=== PATIENT | male | born 1945 | race Caucasian/White ===

== ENCOUNTER 2016-05-03 09:44 | Outpatient (CLI) | payer MEDICARE | END 2016-05-03 09:45 | disposition home or self-care (01) | DX: I48.92 Unspecified atrial flutter (principal); I82.409 Acute embolism and thrombosis of unspecified deep veins of unspecified lower extremity ==

== ENCOUNTER 2016-05-06 09:40 | Outpatient (CLI) | payer MEDICARE | END 2016-05-06 09:41 | disposition home or self-care (01) | DX: I48.92 Unspecified atrial flutter (principal); I82.409 Acute embolism and thrombosis of unspecified deep veins of unspecified lower extremity ==

== ENCOUNTER 2016-05-25 09:30 | Outpatient (CLI) | payer MEDICARE | END 2016-05-25 09:31 | disposition home or self-care (01) | DX: I82.409 Acute embolism and thrombosis of unspecified deep veins of unspecified lower extremity (principal); I48.92 Unspecified atrial flutter ==

== ENCOUNTER 2016-06-08 09:34 | Outpatient (CLI) | payer MEDICARE | END 2016-06-08 09:35 | disposition home or self-care (01) | DX: I82.409 Acute embolism and thrombosis of unspecified deep veins of unspecified lower extremity (principal); I48.92 Unspecified atrial flutter ==

== ENCOUNTER 2016-06-21 | Outpatient (CLI) | payer MEDICARE | END 2016-06-21 09:43 | disposition short-term general hospital (02) | CPT/HCPCS: A0425; A0427 ==

== ENCOUNTER 2016-06-23 | Outpatient (CLI) | payer MEDICARE | END 2016-06-23 08:14 | disposition EMS.NT ==

== ENCOUNTER 2016-10-12 09:03 | Outpatient (CLI) | payer MEDICARE | END 2016-10-12 09:04 | disposition home or self-care (01) | LOC: LAB.F 09:03 | PROVIDERS: ATTEND Pharmacist | DX: I82.409 Acute embolism and thrombosis of unspecified deep veins of unspecified lower extremity (principal); I48.92 Unspecified atrial flutter | CPT/HCPCS: 85610 ==

== ENCOUNTER 2016-10-18 08:54 | Outpatient (CLI) | payer MEDICARE | END 2016-10-18 08:55 | disposition home or self-care (01) | LOC: EMS 08:54 | PROVIDERS: ATTEND Surgery | DX: R53.1 Weakness (principal) | CPT/HCPCS: A0425; A0429 ==

== ENCOUNTER 2016-10-18 09:31 | Emergency (ER) | payer MEDICARE ==
[2016-10-18] MEDS ORDERED: IPRATROPIUM/ALBUTEROL 3 ML NEB INH STA (09:43)
--- NOTE | 2016-10-18 09:48 | ED Physician Documentation ---
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 He fell onto his right knee, which bent under him, and he was unable to get up by himself. His called 911. He presents now complaining of pain in his right knee. He denies any other injuries, and he denies loss of consciousness, headache, or chest pain. He has chronic disability from his previous brain injury, and uses a walker when ambulating. He also has history of AR in November 2015, and underwent stent placement. Review of Systems Constitutional: denies: Fever Nose: denies: Congestion Throat: denies: Sore throat Cardiac: denies: Chest pain / pressure Respiratory: reports: Cough (Chronic cough.). denies: Dyspnea GI: denies: Abdominal Pain, Nausea, Vomiting : denies: Dysuria Skin: denies: Rash, Abrasion (s) Musculoskeletal: reports: Joint pain (right knee). denies: Neck pain, Back pain Neurologic: reports: Confused (chronically). denies: Headache, Head injury, LOC PD PAST MEDICAL HISTORY - Past Medical History Cardiovascular: Hypertension, High cholesterol Neuro: Head injury, Other - Past Surgical History Past Surgical History: Yes General: Appendectomy - Present Medications Home Medications: Ambulatory Orders Medication Instructions Recorded Confirmed Allopurinol 1 tab PO DAILY 10/18/16 10/18/16 Atorvastatin Calcium 1 tab PO DAILY 10/18/16 10/18/16 Budesonide/Formoterol Fumarate 2 puffs INH BID 10/18/16 10/18/16 [Symbicort 160-4.5 Mcg Inhaler] Metoprolol Succinate [Toprol Xl] 12.5 mg PO DAILY 10/18/16 10/18/16 Pantoprazole Sodium 20 mg PO BID 10/18/16 10/18/16 Risperidone [Risperdal] 3 tab PO DAILY 10/18/16 10/18/16 Sevelamer Carbonate [Renvela] 3 tab PO TID 10/18/16 10/18/16 Warfarin Sodium [Coumadin] 1 tab PO DAILY 10/18/16 10/18/16 hydrALAZINE [Apresoline] 1 tab PO TID 10/18/16 10/18/16 - Allergies Allergies/Adverse Reactions: Allergies Allergy/AdvReac Type Severity Reaction Status Date / Time No Known Drug Allergies Allergy Unverified 01/10/14 14:31 - Social History Does the pt smoke?: Yes Smoking Status: Current every day smoker Does the pt drink ETOH?: No Does the pt have substance abuse?: No - Immunizations Immunizations are current?: Yes - POLST Patient has POLST: Yes PD ED PE NORMAL - Vitals Vital signs reviewed: Yes (hypertensive) - General General: No acute distress, Other (Alert, but confused, at baseline.) - HEENT HEENT: Atraumatic, EOMI - Neck Neck: No bony TTP, No JVD - Cardiac Cardiac: RRR, No murmur - Respiratory Respiratory: Other (Diffuse rhonchi bilaterally, with faint expiratory wheezes.) - Abdomen Abdomen: Soft, Non tender - Back Back: No spinal TTP - Derm Derm: No rash - Extremities Extremities: No deformity, No calf tenderness / cord, Other (There is a 3 cm area of mild erythema on the anterior medial aspect of the right knee, with associated mild tenderness to palpation. It is not warm to palpation, and does not appear infected. There is no knee effusion detected, and he has full range of motion of the knee, as well as the hip. Distal neurovascular is intact. There is trace pedal edema bilaterally.) - Neuro Neuro: Other (Alert, oriented x2. Generalized weakness, at baseline.) Results - Vitals Vitals: Oxygen O2 Source Room air - Rads (name of study) CXR Radiology: Prelim report reviewed, EMP read contemporaneously, See rad report ( No acute findings on two-view chest radiography.) right knee Radiology: Prelim report reviewed, EMP read contemporaneously, See rad report ( Negative right knee radiography for acute findings. Age-related changes are present.) PD MEDICAL DECISION MAKING - ED course Complexity details: reviewed old records, reviewed results, re-evaluated patient , considered differential, d/w patient, d/w family ED course: The patient's presentation is consistent with contusion to the right knee caused by slipping when getting out of bed. There is no acute anatomic abnormality on x-ray examination. He demonstrates ability to bear weight at the bedside while in the emergency department. His fall was apparently a slip and fall, and not caused by central nervous system or cardiac etiology, although he does have chronic disequilibrium because of his previous brain injury. His exam revealed respiratory rhonchi on auscultation. Chest x-ray revealed no acute pulmonary infiltrate. Treatment in the emergency department included administration of DuoNeb nebulizer, which improved his air movement. It was determined that at least part of his respiratory rhonchi was upper airway transmitted sounds. I discussed with him and his the results of his imaging studies, expected course of symptoms, outpatient follow-up, as well as potentially worrisome signs or symptoms that should prompt reevaluation in the emergency department. Departure - Departure Disposition: 01 Home, Self Care Clinical Impression: Fall on same level from slipping, tripping or stumbling Qualifiers: Encounter type: initial encounter Qualified Code(s): W01.0XXA - Fall on same level from slipping, tripping and stumbling without subsequent striking against object, initial encounter Contusion of right knee Qualifiers: Encounter type: initial encounter Qualified Code(s): S80.01XA - Contusion of right knee, initial encounter Condition: Stable Instructions: ED Contusion Lower Ext Follow-Up: Lizzette Frey MD [Physician No Access] - Comments: Continue your medication as previously prescribed. Follow up with your primary physician within 2 weeks if the pain in the has not completely resolved. Return to the emergency department if increasing pain, or otherwise worsening symptoms. Discharge Date/Time: 10/18/16 11:46
[2016-10-18] MEDS ORDERED: IPRATROPIUM/ALBUTEROL 3 ML NEB INH ONE (10:20)
--- NOTE | 2016-10-18 10:29 | XRAY Preliminary Report ---
Exam: XR Chest 2 View PA/LAT IMPRESSION: No acute findings 2-view chest radiography. [facility] SITE ID: [id number]
--- NOTE | 2016-10-18 10:31 | XRAY Report ---
EXAM: CHEST RADIOGRAPHY EXAM DATE: 10/18/2016 09:44 AM. CLINICAL HISTORY: Cough with rhonchi. COMPARISON: None. TECHNIQUE: 2 views. FINDINGS: Lungs/Pleura: No focal opacities evident. No pleural effusion. No pneumothorax. Normal volumes. Mediastinum: Heart size top normal to borderline Other: Degenerative change in the spine with slight height loss of 2 midthoracic vertebral bodies IMPRESSION: No acute findings 2-view chest radiography. [facility] Referring Provider Line: [phone] SITE ID: [id number]
--- NOTE | 2016-10-18 10:31 | XRAY Preliminary Report ---
Exam: XR Knee 3 View RT IMPRESSION: Negative right knee radiography for acute findings. Age-related changes are present. [facility] SITE ID: [id number]
--- NOTE | 2016-10-18 10:33 | XRAY Report ---
EXAM: RIGHT KNEE RADIOGRAPHY EXAM DATE: 10/18/2016 09:44 AM. CLINICAL HISTORY: Fall, with pain right knee. COMPARISON: None. TECHNIQUE: 3 views. FINDINGS: Bones: No fractures or bone lesions. Joints: No effusion. No subluxations. Minimal degenerative spurring of the patellar articular surfac e. Possible slight narrowing medial knee joint. Soft Tissues: No soft tissue swelling. IMPRESSION: Negative right knee radiography for acute findings. Age-related changes are present. [facility] Referring Provider Line: [phone] SITE ID: [id number]
[2016-10-18] MEDS ORDERED: ASPIRIN CHEW 81 MG TABLET PO STA (10:57)
[2016-10-18] MEDS ORDERED: ASPIRIN CHEW 81 MG TABLET ONE (11:01)
[2016-10-18 11:46] VITALS: BP 198/83
== END 2016-10-18 11:46 | disposition home or self-care (01) ==
LOC: EDUNIT# → ED 09:31
DX: S80.01XA Contusion of right knee, initial encounter (principal); W06.XXXA Fall from bed, initial encounter; Y92.013 Bedroom of single-family (private) house as the place of occurrence of the external cause; I10 Essential (primary) hypertension; I25.2 Old myocardial infarction; E78.00 Pure hypercholesterolemia, unspecified; Z79.01 Long term (current) use of anticoagulants; Z87.820 Personal history of traumatic brain injury; F17.200 Nicotine dependence, unspecified, uncomplicated
CPT/HCPCS: 71020; 73562; 94640; 99283; 99284; A9270; J7620

== ENCOUNTER 2016-11-16 09:02 | Outpatient (CLI) | payer MEDICARE | END 2016-11-16 09:03 | disposition home or self-care (01) | LOC: LAB.F 09:02 | PROVIDERS: ATTEND Pharmacist | DX: I82.409 Acute embolism and thrombosis of unspecified deep veins of unspecified lower extremity (principal); I48.92 Unspecified atrial flutter | CPT/HCPCS: 85610 ==

== ENCOUNTER 2016-12-21 09:05 | Outpatient (CLI) | payer MEDICARE | END 2016-12-21 09:06 | disposition home or self-care (01) | LOC: LAB.F 09:05 | PROVIDERS: ATTEND Pharmacist | DX: I82.409 Acute embolism and thrombosis of unspecified deep veins of unspecified lower extremity (principal); I48.92 Unspecified atrial flutter | CPT/HCPCS: 85610 ==

== ENCOUNTER 2017-01-02 11:53 | Outpatient (CLI) | payer MEDICARE | END 2017-01-02 11:54 | disposition critical access hospital (66) | LOC: EMS 11:53 | PROVIDERS: ATTEND Surgery | DX: R53.83 Other fatigue (principal); R51 Headache | CPT/HCPCS: A0425; A0427 ==

== ENCOUNTER 2017-01-02 12:24 | Inpatient (IN) | payer MEDICARE ==
[2017-01-02 13:08] LABS: BASOPHILS % (AUTO) 0.3 %; EOSINOPHILS # (AUTO) 0.2 10^3/uL (0.0-0.7); EOSINOPHILS % (AUTO) 2.9 %; HCT - HEMATOCRIT 33.7 % (42.0-52.0); HGB - HEMOGLOBIN 11.4 g/dL (14.0-18.0); LYMPHOCYTES # (AUTO) 0.8 10^3/uL (1.5-3.5); LYMPHOCYTES % (AUTO) 11.8 %; MEAN CORPUSCULAR HGB CONC 33.9 g/dL (32.0-36.0); MEAN CORPUSCULAR VOLUME 91.4 fL (80.0-94.0); MEAN PLATELET VOLUME 7.8 fL (7.4-11.4); MONOCYTES # (AUTO) 0.9 10^3/uL (0.0-1.0); MONOCYTES % (AUTO) 12.4 %; NEUTROPHILS # (AUTO) 5.1 10^3/uL (1.5-6.6); NEUTROPHILS % (AUTO) 72.6 %; RED BLOOD COUNT 3.68 10^6/uL (4.70-6.10); RED CELL DISTRIBUTION WIDTH 13.9 % (12.0-15.0)
[2017-01-02 13:16] LABS: INR 2.2 (0.8-1.2); PT - PROTHROMBIN TIME 24.8 secs (9.9-12.6)
[2017-01-02 13:20] LABS: ALBUMIN/GLOBULIN RATIO 1.1 (1.0-2.2); BILIRUBIN,TOTAL 1.2 mg/dL (0.2-1.0); CALCIUM 9.8 mg/dL (8.5-10.3); CREATININE 1.8 mg/dL (0.6-1.2); POTASSIUM 4.5 mmol/L (3.5-5.0); TOTAL PROTEIN 6.4 g/dL (6.7-8.2)
[2017-01-02] MEDS ORDERED: SODIUM CHLORIDE 0.9% 1,000 ML IV ONE (13:30)
--- NOTE | 2017-01-02 13:41 | CT Preliminary Report ---
Exam: CT Head W/O IMPRESSION: 1. No intracranial bleed or mass effect. 2. Old bilateral infarctions with adjacent low density, likely gliosis. [facility] SITE ID: [id number]
--- NOTE | 2017-01-02 13:42 | XRAY Preliminary Report ---
Exam: XR Chest 1 View IMPRESSION: 1. Pulmonary cephalization with faint interstitial prominence in the perihilar regions, possibly mini mal interstitial edema. 2. Cardiomegaly. [facility] SITE ID: [id number]
--- NOTE | 2017-01-02 13:44 | CT Report ---
EXAM: CT HEAD EXAM DATE: 01/02/2017 01:19 PM. CLINICAL HISTORY: Altered mental status COMPARISON: Head CT 01/10/2014. TECHNIQUE: Multiaxial CT images were obtained from the foramen magnum to the vertex. IV contrast: Non e. Reformats: Coronal. In accordance with CT protocol optimization, one or more of the following dose reduction techniques w ere utilized for this exam: automated exposure control, adjustment of mA and/or KV based on patient s ize, or use of iterative reconstructive technique. FINDINGS: Parenchyma: Right parietal and left parieto-occipital encephalomalacia with adjacent low density in t he deep white matter, likely gliosis. No intracranial bleed or mass effect. Left internal capsule old lacunar infarction. Extraaxial Spaces: Normal for age. No subdural or epidural collections identified. Ventricles: Normal in size and position. Sinuses: Mucosal thickening ethmoid sinuses. Bones: No evidence of fracture or calvarial defect. Other: None. IMPRESSION: 1. No intracranial bleed or mass effect. 2. Old bilateral infarctions with adjacent low density, likely gliosis. [facility] Referring Provider Line: [phone] SITE ID: [id number]
--- NOTE | 2017-01-02 13:45 | XRAY Report ---
EXAM: CHEST RADIOGRAPHY EXAM DATE: 01/02/2017 01:21 PM. CLINICAL HISTORY: Cough, altered mental status. COMPARISON: Chest x-ray 10/18/2016. TECHNIQUE: 1 view. FINDINGS: Lungs/Pleura: No pleural effusion or pneumothorax. Pulmonary cephalization with minimal interstitial prominence in the hilar regions. Mediastinum: Cardiomegaly with atherosclerotic calcification. Other: None. IMPRESSION: 1. Pulmonary cephalization with faint interstitial prominence in the perihilar regions, possibly mini mal interstitial edema. 2. Cardiomegaly. [facility] Referring Provider Line: [phone] SITE ID: [id number]
--- NOTE | 2017-01-02 14:19 | ED Physician Documentation ---
History of Present Illness - Stated complaint Stated Complaint: LETHARGIC - Chief complaint Chief Complaint: General - Additonal information Additional information: Patient is 71-year-old man with a history of hemorrhagic stroke approximately 40 years ago. He does have ongoing developmental delay and cognitive problems related to the previous stroke. He also has a history of COPD hypertension and had a myocardial infarction in December 2015. He also had acute it kidney injury at that time. He is brought in for evaluation by his sister who lives with him. She says that today he appeared lethargic and was poorly responsive. The patient complained of feeling bad. Usually the patient has almost no complaints about anything so she is concerned about the brief alteration in mental status and his complaint of not feeling well. She has not noticed any increased cough, nausea, vomiting, constipation or diarrhea. She did give him an aspirin at home today. Review of systems: For pertinent positive and negatives in the review of systems please see the history of present illness, otherwise all other systems have been reviewed and are negative. Dragon disclaimer: Parts of this medical record were created using voice recognition technology. Because of the inherent limitations of this system, occasional same sounding word substitutions do occur and persist despite proofreading. Please read the document for context. Review of Systems Unable to obtain: Confused Ten Systems: 10 systems reviewed and negative Constitutional: reports: Myalgias. denies: Fever, Chills Eyes: denies: Loss of vision Ears: denies: Loss of hearing Nose: denies: Rhinorrhea / runny nose, Foreign Body Throat: denies: Dental pain / toothache, Oral lesions / sores, Sore throat Cardiac: denies: Chest pain / pressure, Palpitations Respiratory: denies: Dyspnea, Cough GI: denies: Nausea, Vomiting : denies: Dysuria, Frequency, Hesitancy PD PAST MEDICAL HISTORY - Past Medical History Past Medical History: Yes Cardiovascular: Hypertension, High cholesterol Respiratory: COPD Neuro: Head injury, Other - Past Surgical History Past Surgical History: Yes General: Appendectomy - Present Medications Home Medications: Ambulatory Orders Medication Instructions Recorded Confirmed Allopurinol 1 tab PO DAILY 10/18/16 01/02/17 Atorvastatin Calcium 1 tab PO DAILY 10/18/16 01/02/17 Budesonide/Formoterol Fumarate 2 puffs INH BID 10/18/16 01/02/17 [Symbicort 160-4.5 Mcg Inhaler] Metoprolol Succinate [Toprol Xl] 12.5 mg PO DAILY 10/18/16 01/02/17 Pantoprazole Sodium 20 mg PO BID 10/18/16 01/02/17 Risperidone [Risperdal] 3 tab PO DAILY 10/18/16 01/02/17 Sevelamer Carbonate [Renvela] 3 tab PO TID 10/18/16 01/02/17 Warfarin Sodium [Coumadin] 1 tab PO DAILY 10/18/16 01/02/17 hydrALAZINE [Apresoline] 1 tab PO TID 10/18/16 01/02/17 - Allergies Allergies/Adverse Reactions: Allergies Allergy/AdvReac Type Severity Reaction Status Date / Time No Known Drug Allergies Allergy Unverified 01/10/14 14:31 - Social History Does the pt smoke?: Yes Smoking Status: Current every day smoker Does the pt drink ETOH?: No Does the pt have substance abuse?: No - Immunizations Immunizations are current?: Yes - POLST Patient has POLST: Yes PD ED PE NORMAL - Vitals Vital signs reviewed: Yes - General General: Alert and oriented X 3, No acute distress, Well developed/nourished, Other (Patient has a wet sounding cough on initial presentation. The patient is awake and alert although he obviously has some cognitive problems does not respond normally to questioning and is very short in his answers presumably secondary to his previous hemorrhagic stroke. His neurologic exam appears to be nonfocal) - HEENT HEENT: Atraumatic, PERRL - Neck Neck: Supple, no meningeal sign, No JVD, No bruit - Cardiac Cardiac: No murmur, Other (Bradycardic rate no lift heave or murmur) - Respiratory Respiratory: No respiratory distress (Coarse sounding cough, no increased work of breathing, no respiratory distress), Other - Abdomen Abdomen: Normal bowel sounds, Soft, Non tender, Non distended - Derm Derm: Normal color, Warm and dry - Extremities Extremities: No deformity, No tenderness to palpate, Normal ROM s pain, No edema - Neuro Neuro: No motor deficit Results - Vitals Vitals: Vital Signs - 24 hr 01/02/17 01/02/17 01/02/17 12:26 13:59 14:03 Temperature 36.6 C 37.0 C Heart Rate 46 L 88 52 L Respiratory 13 16 Rate Blood Pressure 208/65 H 102/57 L 137/78 H O2 Saturation 97 98 01/02/17 01/02/17 14:35 15:09 Temperature Heart Rate 59 L 51 L Respiratory 20 22 Rate Blood Pressure 217/62 H 195/70 H O2 Saturation 96 96 Oxygen O2 Source Room air - Labs Labs: Laboratory Tests 01/02/17 01/02/17 01/02/17 13:00 13:00 13:00 WBC 7.0 RBC 3.68 L Hgb 11.4 L Hct 33.7 L MCV 91.4 MCH 31.0 MCHC 33.9 RDW 13.9 Plt Count 119 L MPV 7.8 Neut # 5.1 Lymph # 0.8 L [place] # 0.9 Eos # 0.2 Baso # 0.0 Absolute Nucleated RBC 0.00 Nucleated RBCs 0.0 PT 24.8 H INR 2.2 H Sodium 131 L Potassium 4.5 Chloride 96 L Carbon Dioxide 29 Anion Gap 6.0 BUN 37 H Creatinine 1.8 H Estimated GFR (MDRD) 37 L Glucose 105 H Calcium 9.8 Total Bilirubin 1.2 H AST 18 ALT 17 Alkaline Phosphatase 62 Troponin I B-Natriuretic Peptide Total Protein 6.4 L Albumin 3.4 Globulin 3.0 Albumin/Globulin Ratio 1.1 Lipase 30 Urine Color Urine Clarity Urine pH Ur Specific [place] Urine Protein Urine Glucose (UA) Urine Ketones Urine Occult Blood Urine Nitrite Urine Bilirubin Urine Urobilinogen Ur Leukocyte Esterase Urine RBC Urine WBC Ur Squamous Epith Cells Urine Crystals Amorphous Sediment Urine Bacteria Ur Microscopic Review Urine Culture Comments 01/02/17 01/02/17 01/02/17 13:00 13:00 14:10 WBC RBC Hgb Hct MCV MCH MCHC RDW Plt Count MPV Neut # Lymph # [place] # Eos # Baso # Absolute Nucleated RBC Nucleated RBCs PT INR Sodium Potassium Chloride Carbon Dioxide Anion Gap BUN Creatinine Estimated GFR (MDRD) Glucose Calcium Total Bilirubin AST ALT Alkaline Phosphatase Troponin I 0.04 B-Natriuretic Peptide 331 H Total Protein Albumin Globulin Albumin/Globulin Ratio Lipase Urine Color YELLOW Urine Clarity CLEAR Urine pH 7.0 Ur Specific [place] 1.010 Urine Protein 100 H Urine Glucose (UA) NEGATIVE Urine Ketones NEGATIVE Urine Occult Blood TRACE-INTA Urine Nitrite NEGATIVE Urine Bilirubin NEGATIVE Urine Urobilinogen 0.2 (NORMAL) Ur Leukocyte Esterase NEGATIVE Urine RBC 0-5 Urine WBC 0-3 Ur Squamous Epith Cells RARE Squamous Urine Crystals 3-5 Uric Acid Amorphous Sediment Rare Urine Bacteria None Seen Ur Microscopic Review INDICATED Urine Culture Comments NOT INDICATED PD MEDICAL DECISION MAKING - ED course ED course: Patient is a 71-year-old man with a history of hemorrhagic stroke 40 years ago. He also has a history of coronary disease and had a myocardial infarction in December 2015 at which time he also had acute kidney injury and was diagnosed with deep venous thrombosis after his hospitalization. He is brought in for evaluation of lethargy and found to be moderately bradycardic here in the 40s. He is on a beta-piyush but only takes 12.5 mg of metoprolol a day. He is also on hydralazine for blood pressure control. He is anticoagulated for the previous DVT and his INR is therapeutic. CT scan of the head is unremarkable chest x-ray demonstrates mild pulmonary vascular congestion consistent with CHF EKG demonstrates sinus bradycardia 49 bpm the [place] intervals prolonged and first- degree AV block the QRS and QT intervals are normal. There is peaked T waves on EKG examination. The computer read as mild ST elevation however the morphology is benign and he has no cardiac symptomatology at present. Blood work on this patient shows kidney disease which we believe is chronic and is unknown phenomenon since his insult in 2015. BNP slightly elevated urine is negative for infection. The patient's mental status is now back at baseline. The little concerned about his bradycardia and his mild congestive heart failure. He is mildly hypertensive here and I think he probably needs to be taken off the metoprolol and needs better blood pressure control given the fact that he is mildly fluid overloaded here and has a coarse pulmonary exam. Disposition: Admission Clinical impression: 1. Lethargy-resolved 2. Sinus bradycardia-possibly related to Toprol use 3. Acute decompensated heart failure 4. Hypertension-elevated Departure - Departure Disposition: [facility] DC/Xfer
[2017-01-02 14:32] LABS: BILIRUBIN,URINE NEGATIVE (NEGATIVE)
[2017-01-02 14:36] LABS: UA w/ MICROSCOPIC CHARGE YES
[2017-01-02 14:46] LABS: WBC,URINE 0-3 /HPF (0-3)
[2017-01-02 14:47] LABS: UR CULTURE IF IND NOT INDICATED
[2017-01-02] MEDS ORDERED: NITROGLYCERIN 2% PASTE TOP STA (15:28)
[2017-01-02] MEDS ORDERED: FUROSEMIDE 20 MG/2 ML VIAL IVP STA (15:28)
[2017-01-02] MEDS ORDERED: ONDANSETRON ODT 4 MG TABLET TL PRN (16:02)
[2017-01-02] MEDS ORDERED: TEMAZEPAM 15 MG CAPSULE PO PRN (16:02)
[2017-01-02] MEDS ORDERED: ACETAMINOPHEN 325 MG TABLET PO PRN (16:02)
[2017-01-02] MEDS ORDERED: SODIUM CHLORIDE FLUSH 0.9% 10 ML SYRINGE IVP PRN (16:02)
[2017-01-02] MEDS ORDERED: NITROGLYCERIN 2% PASTE TOP ONE (16:03)
[2017-01-02] MEDS ORDERED: FUROSEMIDE 20 MG/2 ML VIAL IVP ONE (16:03)
[2017-01-02] MEDS ORDERED: IPRATROPIUM/ALBUTEROL 3 ML NEB INH PRN (16:12)
--- NOTE | 2017-01-02 16:27 | HISTORY & PHYSICAL EXAMINATION ---
Chief Complaint - Chief Complaint Chief Complaint: Altered mental status History of Present Illness - Admitted From Admitted From:: Emergency department - History Obtained From Records Reviewed: Yes History obtained from: Record review as PT is not a reliable historian due to prior CVA - History of Present Illness HPI Comment/Other: Pt is a poor historian due to impaired cognition from prior CVA. INformation obtained from records review. PT has a hX of CAD with prior [place]. He was Dx with a CVA and has persistent cognitive impairment. 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 His INR today was 2.2. HE has known CKD and creatinine today was 1.8. PT with possible HX of CHF Today his BNP had mild elevation >300. PT was brought in by his sister for evaluation. He was at home and was less responsive then his usual baseline. He also appeared more lethargic. She was concerned that he was he was complaining of not feeling well. He does not normally complain. There were no specific complaints reported. He did not have nausea, vomiting, diarrhea, constipation, or cough. PT was able to tell me he had a headache. He denies dyspnea. In the ED head CT scan was negative for acute changes. CXR with mild interstitial changes suggesting edema. No pneumonia was visualized. Lab testing without significant findings. PT was noted to be bradycardic on telmetry with HR 40-60. HE did not have complaints of dizziness, lightheadedness or weakness on evaluation. Review of Systems - Constitutional Constitutional: reports: Other (Unable to obtain accurate complete ROS as PT is confused with declined cognitive abilities at baseline.). denies: Fatigue, Fever - Eyes Eyes: denies: Pain - Cardiovascular Cariovascular: denies: Chest pain - Respiratory Respiratory: denies: SOB at rest, SOB with exertion - Gastrointestinal Gastrointestinal: denies: Abdominal pain, Nausea, Vomiting - Musculoskeletal Musculoskeletal: denies: Muscle pain - Neurological Neurological: reports: Headache. denies: General weakness History - Past Medical History Cardiovascular: reports: Hypertension, High cholesterol, Coronary artery disease Respiratory: reports: COPD Neuro: reports: CVA (Hemorrhagic), Head injury, Other Psych: reports: Other (cognitive impairment following CVA) MRSA Hx?: No - Past Surgical History General: reports: Appendectomy - Family & Social History Family History: Mother: [place] Living arrangement: At home Living Situation: With family (Sister acts as caregiver) - POLST Patient has POLST: Yes POLST Status: Unable to obtain Meds/Allgy - Home Medications Home Medications: Ambulatory Orders Medication Instructions Recorded Confirmed Allopurinol 100 mg PO DAILY 10/18/16 01/02/17 Atorvastatin Calcium 20 mg PO DAILY 10/18/16 01/02/17 Budesonide/Formoterol Fumarate 2 puffs INH BID 10/18/16 01/02/17 [Symbicort 160-4.5 Mcg Inhaler] Metoprolol Succinate [Toprol Xl] 12.5 mg PO DAILY 10/18/16 01/02/17 Pantoprazole Sodium 20 mg PO BID 10/18/16 01/02/17 Risperidone [Risperdal] 1.5 mg PO DAILY 10/18/16 01/02/17 Sevelamer Carbonate [Renvela] 2,400 mg PO TID 10/18/16 01/02/17 Warfarin Sodium [Coumadin] 6 mg PO DAILY 10/18/16 01/02/17 hydrALAZINE [Apresoline] 25 mg PO TID 10/18/16 01/02/17 - Allergies Allergies/Adverse Reactions: Allergies Allergy/AdvReac Type Severity Reaction Status Date / Time No Known Drug Allergies Allergy Unverified 01/10/14 14:31 Exam - Vital Signs Reviewed Vital Signs: Yes Vital Signs: Vital Signs x48h Temp Pulse Resp BP Pulse Ox 01/02/17 15:57 65 202/75 H 01/02/17 15:09 51 L 22 195/70 H 96 01/02/17 14:35 59 L 20 217/62 H 96 01/02/17 14:03 52 L 137/78 H 01/02/17 13:59 37.0 C 88 16 102/57 L 98 01/02/17 12:26 36.6 C 46 L 13 208/65 H 97 - Physical Exam General Appearance: positive: No acute distress, Alert Eyes Bilateral: positive: Normal inspection, PERRL, EOMI ENT: positive: ENT inspection nml, Pharynx nml. negative: Pharyngeal erythema Neck: positive: Nml inspection, No JVD. negative: Stiff neck Respiratory: positive: Chest non-tender, No respiratory distress, Rales. negative: Wheezes, Rhonchi Cardiovascular: positive: Regular rate & rhythm, No murmur, No gallop Peripheral Pulses: positive: 2+ Abdomen: positive: Non-tender, No organomegaly, Nml bowel sounds Rectal: positive: Other (deferred) Back: positive: Nml inspection Skin: positive: Color nml, No rash, Warm, Dry Extremities: positive: Non-tender, Full ROM, Pedal edema (1+ BLE edema to vidal) . negative: Calf tenderness, Joint swelling Neurologic/Psychiatric: positive: Disoriented to person, Disoriented to place, Disoriented to time. negative: Facial droop, Slurred/abnml speech Conclusion/Plan - Problem List (1) CHF (congestive heart failure) Conclusion/Plan: PT with elevated BNP HX OF [place]. No echo on file Denies PND and orthopnea. Mild BLE edema Plan ECHO in am Lasix daily Will monitor oxygenations Qualifiers: Congestive heart failure type: unspecified congestive heart failure type Congestive heart failure chronicity: acute on chronic Qualified Code(s): I50.9 - Heart failure, unspecified (2) CAD (coronary artery disease) Conclusion/Plan: HX CAD and [place] Denies chest pain On low dose BB No ASA due to warfarin Suspect no ABDON due to CKD Plan Will monitor for changes No indication for ischemic workup Qualifiers: Coronary Disease-Associated Artery/Lesion type: [place] artery [place] vs. transplanted heart: beaver heart Associated angina: without angina Qualified Code(s): I25.10 - Atherosclerotic heart disease of [place] coronary artery without angina pectoris (3) CVA (cerebral vascular accident) Conclusion/Plan: PT with cognitive impairment from CVA Report of altered level of consciousness/decreased responsiveness. No acute changes on CT Now resolved Unclear if new SX are related to CVA/TIA Plan Will monitor for additional changes Consider MRI if recurrent sx Qualifiers: CVA mechanism: other Qualified Code(s): I63.8 - Other cerebral infarction (4) CKD (chronic kidney disease) Conclusion/Plan: Creatinine 1.8 today Plan Will monitor (5) Altered awareness, transient Conclusion/Plan: Reported to ED MD byu sister Now resolved Pt with cognitive impairment at baseline Unclear etiology. May be related to bradycardia however does not appear symptomatic in ED wth HR 40-60 Plan Will monitor on telemetry for lower HRs Consider MRI tomorrow (6) Cognitive impairment Conclusion/Plan: Chronic from CVA Unchanged (7) Hyponatremia Conclusion/Plan: Reported as chronic NA 133 Will monitor daily labs (8) Anemia Conclusion/Plan: .7 No recent labs in records Will recheck in AM Guiaic stool test Qualifiers: Anemia type: unspecified type Qualified Code(s): D64.9 - Anemia, unspecified - Lab Results Fish Bones: 01/02/17 13:00 01/02/17 13:00 Issues/Core Measures - Anticipated LOS Anticipated Stay Length: 2 or more midnights - DVT/VTE - Prophylaxis VTE/DVT Device ordered at admit?: No VTE/DVT Prophylaxis med ordered at admit?: No Not Ordered - Medical Reason: Contraindicated (PT is therapeutic on warfarin) - AMI - Statin at Admit Aspirin Prescribed on Admit: No Not Ordered - Medical Reason: Contraindicated
[2017-01-02] MEDS ORDERED: hydrALAZINE 25 MG TABLET PO SCH ×2 (18:30→22:00)
[2017-01-02] MEDS: SODIUM CHLORIDE FLUSH 0.9% 10 ML SYRINGE IVP SCH (18:32)
[2017-01-02] MEDS: FORMOTEROL FUMARATE NEB 20 MCG/2 ML INH SCH (19:53)
[2017-01-02] MEDS: BUDESONIDE 0.5 MG/2 ML NEB INH SCH (19:53)
[2017-01-02] MEDS: risperiDONE 1 MG TABLET PO SCH (21:21)
[2017-01-02] MEDS: ATORVASTATIN 10 MG TABLET PO SCH (21:22)
[2017-01-02] MEDS: hydrALAZINE 25 MG TABLET PO SCH (21:24)
[2017-01-02] MEDS ORDERED: SEVELAMER 800 MG TABLET PO SCH (22:00)
[2017-01-03 05:45] LABS: HCT - HEMATOCRIT 33.6 % (42.0-52.0); HGB - HEMOGLOBIN 11.4 g/dL (14.0-18.0); MEAN CORPUSCULAR HEMOGLOBIN 31.3 pg (27.0-31.0); MEAN CORPUSCULAR HGB CONC 33.9 g/dL (32.0-36.0); MEAN CORPUSCULAR VOLUME 92.2 fL (80.0-94.0); MEAN PLATELET VOLUME 8.2 fL (7.4-11.4); RED BLOOD COUNT 3.65 10^6/uL (4.70-6.10); WHITE BLOOD COUNT 7.3 x10^3/uL (4.8-10.8)
[2017-01-03] MEDS: hydrALAZINE 25 MG TABLET PO SCH ×3 (06:13→21:14)
[2017-01-03] MEDS: PANTOPRAZOLE 40 MG TABLET PO SCH (06:13)
[2017-01-03] MEDS: SODIUM CHLORIDE FLUSH 0.9% 10 ML SYRINGE IVP SCH ×3 (06:13→20:12)
[2017-01-03] MEDS: BUDESONIDE 0.5 MG/2 ML NEB INH SCH ×2 (07:40→20:38)
[2017-01-03] MEDS: FORMOTEROL FUMARATE NEB 20 MCG/2 ML INH SCH ×2 (07:40→20:30)
[2017-01-03] MEDS: ALLOPURINOL 100 MG TABLET PO SCH (08:21)
[2017-01-03] MEDS: POLYETHYLENE GLYCOL 3350 17 GM PACKET PO SCH (08:21)
[2017-01-03] MEDS: SEVELAMER 800 MG TABLET PO SCH ×3 (08:21→17:57)
[2017-01-03] MEDS ORDERED: FUROSEMIDE 20 MG/2 ML VIAL IVP SCH (09:00)
[2017-01-03 12:31] LABS: ALBUMIN/GLOBULIN RATIO 1.2 (1.0-2.2); BILIRUBIN,TOTAL 1.7 mg/dL (0.2-1.0); CALCIUM 9.5 mg/dL (8.5-10.3); POTASSIUM 4.2 mmol/L (3.5-5.0); TOTAL PROTEIN 5.8 g/dL (6.7-8.2)
[2017-01-03] MEDS ORDERED: WARFARIN 1 MG TABLET PO SCH (14:00)
[2017-01-03] MEDS ORDERED: WARFARIN 5 MG TABLET PO SCH (14:00)
--- NOTE | 2017-01-03 15:28 | PROVIDER PROGRESS NOTE ---
Subjective - Prog Note Date Prog Note Date: 01/03/17 - Subjective Pt reports feeling: Improved Subjective: pt state he feels much better, report he is weak to walk Current Medications - Current Medications Current Medications: Active Medications Acetaminophen (Tylenol) 650 mg PO Q4HR PRN PRN Reason: Pain 1 to 4 Albuterol/Ipratropium (Duoneb) 3 ml INH Q4HR PRN PRN Reason: Wheezing Last Admin: 01/02/17 19:53 Dose: 3 ml Allopurinol (Zyloprim) 100 mg PO DAILY [facility] Last Admin: 01/03/17 08:21 Dose: 100 mg Atorvastatin Calcium (Lipitor) 20 mg PO QPM [facility] Last Admin: 01/02/17 21:22 Dose: 20 mg Budesonide (Pulmicort) 0.5 mg INH RTBID [facility] Last Admin: 01/03/17 07:40 Dose: 0.5 mg Formoterol Fumarate (Perforomist) 20 mcg INH RTBID [facility] Last Admin: 01/03/17 07:40 Dose: 20 mcg Furosemide (Lasix Inj 20mg Vial) 20 mg IVP DAILY [facility] Last Admin: 01/03/17 08:21 Dose: 20 mg Hydralazine HCl (Apresoline) 50 mg PO TID [facility] Last Admin: 01/03/17 13:40 Dose: 50 mg Ondansetron HCl (Zofran Odt) 4 mg TL Q6HR PRN PRN Reason: Nausea / Vomiting Pantoprazole Sodium (Protonix) 40 mg PO QDAC [facility] Last Admin: 01/03/17 06:13 Dose: 40 mg Polyethylene Glycol (Miralax) 17 gm PO DAILY [facility] Last Admin: 01/03/17 08:21 Dose: 17 gm Risperidone (Risperdal) 1.5 mg PO QPM [facility] Last Admin: 01/02/17 21:21 Dose: 1.5 mg Sevelamer HCl (Renagel) 2,400 mg PO TIDWM [facility] Last Admin: 01/03/17 13:39 Dose: 2,400 mg Sodium Chloride (Normal Saline Flush 0.9%) 10 ml IVP PRN PRN PRN Reason: NEEDED PER PROVIDER ORDERS Last Admin: 01/03/17 08:21 Dose: 10 ml Sodium Chloride (Normal Saline Flush 0.9%) 10 ml IVP Q8HR [facility] Last Admin: 01/03/17 13:40 Dose: 10 ml Temazepam (Restoril) 15 mg PO QPM PRN PRN Reason: Insomnia [facility]farin [facility]) [facility] Last Admin: 01/03/17 13:40 Dose: 5 mg Warfarin Sodium (Coumadin) [facility] Last Admin: 01/03/17 13:40 Dose: 1 mg Allopurinol 100 mg PO DAILY 10/18/16 Atorvastatin Calcium 20 mg PO DAILY 10/18/16 Budesonide/Formoterol Fumarate [Symbicort 160-4.5 Mcg Inhaler] 2 puffs INH BID 10/18/16 Metoprolol Succinate [Toprol Xl] 12.5 mg PO DAILY 10/18/16 Pantoprazole Sodium 20 mg PO BID 10/18/16 Risperidone [Risperdal] 1.5 mg PO DAILY 10/18/16 Sevelamer Carbonate [Renvela] 2,400 mg PO TID 10/18/16 Warfarin Sodium [Coumadin] 6 mg PO DAILY 10/18/16 hydrALAZINE [Apresoline] 25 mg PO TID 10/18/16 Objective - Vital Signs/Intake & Output Vital Signs: Vital Signs x48h Temp Pulse Pulse Resp BP Pulse Ox 01/03/17 13:37 36.7 C 64 16 158/87 H 100 01/03/17 08:03 36.8 C 54 L 18 156/48 H 98 01/03/17 07:46 60 18 Intake & Output: Intake & Output 12/31/16 01/01/17 01/02/17 01/03/17 23:59 23:59 23:59 23:59 Intake Total 536 680 Output Total 100 800 Balance 436 -120 - Objective General Appearance: positive: No acute distress, Alert. negative: Lethargic Eyes Bilateral: positive: Normal inspection, PERRL. negative: No lid inflammation, Conjunctivae nml ENT: positive: ENT inspection nml, Pharynx nml, No signs of dehydration. negative: Purulent nasal drainage, Pharyngeal erythema Neck: positive: Nml inspection, Thyroid nml, Trachea midline. negative: Thyromegaly, Lymphadenopathy (R), Lymphadenopathy (L), Stiff neck, Swelling/ bruising, Tracheal deviation Respiratory: positive: Chest non-tender, No respiratory distress, Breath sounds nml. negative: Wheezes, Rales, Rhonchi Cardiovascular: positive: Regular rate & rhythm, No gallop, Bradycardia, Systolic murmur. negative: Tachycardia Peripheral Pulses: 2+ Radial (R), 2+ Radial (L), 2+ Dorsalis pedis (R), 2+ Dorsalis pedis (L) Abdomen: positive: Non-tender, Nml bowel sounds, No distention. negative: Tenderness, Guarding, Rebound Back: positive: Nml inspection. negative: CVA tenderness (R), CVA tenderness (L ) Skin: positive: Color nml, No rash, Warm, Dry. negative: Cyanosis, Diaphoresis , Pallor Extremities: positive: Non-tender, Full ROM, Nml appearance. negative: Calf tenderness, Manny's sign/cords Neurologic/Psychiatric: positive: Sensation nml, Mood/affect nml, Disoriented to time, Weakness. negative: Disoriented to person, Disoriented to place, Sensory loss, Facial droop, Slurred/abnml speech, Depressed mood/affect - Lab Results Fish Bones: 01/03/17 05:24 01/03/17 05:24 Other Labs: Lab Results x24hrs 01/03/17 01/03/17 01/03/17 Range/Units 05:24 05:24 05:24 WBC 7.3 (4.8-10.8) x10^3/uL RBC 3.65 L (4.70-6.10) 10^6/uL Hgb 11.4 L (14.0-18.0) g/dL Hct 33.6 L (42.0-52.0) % MCV 92.2 (80.0-94.0) fL MCH 31.3 H (27.0-31.0) pg MCHC 33.9 (32.0-36.0) g/dL RDW 14.0 (12.0-15.0) % Plt Count 118 L (130-450) 10^3/uL MPV 8.2 (7.4-11.4) fL Sodium 136 (135-145) mmol/L Potassium 4.2 (3.5-5.0) mmol/L Chloride 101 (101-111) mmol/L Carbon Dioxide 28 (21-32) mmol/L Anion Gap 7.0 (6-13) BUN 39 H (6-20) mg/dL Creatinine 2.0 H (0.6-1.2) mg/dL Estimated GFR (MDRD) 33 L (>89) Glucose 98 (70-100) mg/dL Calcium 9.5 (8.5-10.3) mg/dL Total Bilirubin 1.7 H (0.2-1.0) mg/dL AST 19 (10-42) IU/L ALT 15 (10-60) IU/L Alkaline Phosphatase 55 (42-121) IU/L B-Natriuretic Peptide 308 H (5-100) pg/mL Total Protein 5.8 L (6.7-8.2) g/dL Albumin 3.2 (3.2-5.5) g/dL Globulin 2.6 (2.1-4.2) g/dL Albumin/Globulin Ratio 1.2 (1.0-2.2) Assessment/Plan - Problem List (1) Altered awareness, transient Impression: (1) weakness nurse and pt report he feel weakness, PT evaluate and treat (2) CHF (congestive heart failure) Conclusion/Plan: ECHO reviewed, normal LVF function. Pt denies SOB continue Lasix, continue to monitor BNP, today BNP down to 308 PT with elevated BNP HX OF [place]. No echo on file Denies PND and orthopnea. Mild BLE edema Plan ECHO in am Lasix daily Will monitor oxygenations Qualifiers: Congestive heart failure type: unspecified congestive heart failure type Congestive heart failure chronicity: acute on chronic Qualified Code(s): I50.9 - Heart failure, unspecified (3) history of CAD (coronary artery disease) Conclusion/Plan: continue monitor with tele, vital hold ABDON now, due to CKD HX CAD and [place] Denies chest pain On low dose BB No ASA due to warfarin Suspect no ABDON due to CKD Plan Will monitor for changes No indication for ischemic workup Qualifiers: Coronary Disease-Associated Artery/Lesion type: [place] artery [place] vs. transplanted heart: [place] heart Associated angina: without angina Qualified Code(s): I25.10 - Atherosclerotic heart disease of [place] coronary artery without angina pectoris (4) history of CVA (cerebral vascular accident) Conclusion/Plan: CT reviewed, without acute finding. pt is more clear, and oriented neuro check, continue monitor PT with cognitive impairment from CVA Report of altered level of consciousness/decreased responsiveness. No acute changes on CT Now resolved Unclear if new SX are related to CVA/TIA Plan Will monitor for additional changes Consider MRI if recurrent sx Qualifiers: CVA mechanism: other Qualified Code(s): I63.8 - Other cerebral infarction (5) CKD (chronic kidney disease) Conclusion/Plan: stable, Creatinine 1.8 today Plan Will monitor (6) Altered awareness, transient Conclusion/Plan: pt is more clear, oriented. CT of head without acute finding. Reported to ED MD byu sister Now resolved Pt with cognitive impairment at baseline Unclear etiology. May be related to bradycardia however does not appear symptomatic in ED wth HR 40-60 Plan Will monitor on telemetry for lower HRs Consider MRI tomorrow (7) Cognitive impairment Conclusion/Plan: Chronic from CVA Unchanged (7) Hyponatremia Conclusion/Plan: resolved, today Na 136 continue to monitor Reported as chronic NA 133 Will monitor daily labs (8) Anemia Conclusion/Plan: stable, 11.4/33.7 No recent labs in records Will recheck in AM Guiaic stool test
[2017-01-03] MEDS: ATORVASTATIN 10 MG TABLET PO SCH (20:11)
[2017-01-03] MEDS: risperiDONE 1 MG TABLET PO SCH (20:11)
[2017-01-04 05:58] LABS: HCT - HEMATOCRIT 33.9 % (42.0-52.0); HGB - HEMOGLOBIN 11.5 g/dL (14.0-18.0); MEAN CORPUSCULAR HEMOGLOBIN 31.5 pg (27.0-31.0); MEAN CORPUSCULAR VOLUME 92.8 fL (80.0-94.0); MEAN PLATELET VOLUME 8.7 fL (7.4-11.4); RED BLOOD COUNT 3.65 10^6/uL (4.70-6.10); RED CELL DISTRIBUTION WIDTH 14.1 % (12.0-15.0); WHITE BLOOD COUNT 6.2 x10^3/uL (4.8-10.8)
[2017-01-04 05:59] LABS: CREATININE 2.1 mg/dL (0.6-1.2); POTASSIUM 4.2 mmol/L (3.5-5.0)
[2017-01-04] MEDS: PANTOPRAZOLE 40 MG TABLET PO SCH (06:03)
[2017-01-04] MEDS: SODIUM CHLORIDE FLUSH 0.9% 10 ML SYRINGE IVP SCH (06:03)
[2017-01-04 06:04] LABS: INR 1.4 (0.8-1.2); PT - PROTHROMBIN TIME 16.4 secs (9.9-12.6)
[2017-01-04] MEDS: hydrALAZINE 25 MG TABLET PO SCH (06:04)
[2017-01-04] MEDS: FORMOTEROL FUMARATE NEB 20 MCG/2 ML INH SCH (07:21)
[2017-01-04] MEDS: BUDESONIDE 0.5 MG/2 ML NEB INH SCH (07:21)
[2017-01-04] MEDS ORDERED: cloNIDine 0.1 MG TABLET PO PRN (07:38)
[2017-01-04] MEDS: SEVELAMER 800 MG TABLET PO SCH ×2 (08:04→11:47)
[2017-01-04] MEDS: POLYETHYLENE GLYCOL 3350 17 GM PACKET PO SCH (08:04)
[2017-01-04] MEDS: ALLOPURINOL 100 MG TABLET PO SCH (08:04)
[2017-01-04] MEDS ORDERED: METOPROLOL SUCCINATE 25 MG TABLET PO SCH (09:00)
[2017-01-04 09:01] VITALS: BP 154/90
--- NOTE | 2017-01-04 11:44 | Discharge Plan ---
Discharge Plan Disposition: 01 Home, Self Care Condition: Stable Diet: Low Sodium Activity Restrictions: Activity as Tolerated Shower Restrictions: No Assistance Devices: Walker Weight Bearing: Full Weight Additional Instructions or Follow Up instructions: May see PCP in one week, have blood work with PT/INR in one week Follow-Up Care: [facility] - [facility], [facility] No Smoking: If you smoke, Please STOP! Call for help.
--- NOTE | 2017-01-04 11:51 | DISCHARGE SUMMARY ---
Discharge Summary Admit Date: 01/02/17 Discharge Date: 01/04/17 Discharging Provider: ADKINS Primary Care Provider: Suzanna Mata Code Status: Do Not Attempt Resuscitation Condition at Discharge: Stable Discharge Disposition: 01 Home, Self Care Discharge Facility Name: home - DIAGNOSES Admission Diagnoses: 1) Altered awareness, transient (2) CHF (congestive heart failure) (3) history of CAD (coronary artery disease) (4) history of CVA (cerebral vascular accident) (5) CKD (chronic kidney disease) (6) Hyponatremia Discharge Diagnoses with Status of Each Condition: 1) Altered awareness, transient resolved, as pt's baseline (2) CHF (congestive heart failure) stable, (3) history of CAD (coronary artery disease) stable (4) history of CVA (cerebral vascular accident) stable (5) CKD (chronic kidney disease) stable (6) Hyponatremia resolved - HPI History of Present Illness: please refer from Mr. Khalil's HPI on 01/02/17 as the following: Pt is a poor historian due to impaired cognition from prior CVA. INformation obtained from records review. PT has a hX of CAD with prior [place]. He was Dx with a CVA and has persistent cognitive impairment. 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 His INR today was 2.2. HE has known CKD and creatinine today was 1.8. PT with possible HX of CHF Today his BNP had mild elevation >300. PT was brought in by his sister for evaluation. He was at home and was less responsive then his usual baseline. He also appeared more lethargic. She was concerned that he was he was complaining of not feeling well. He does not normally complain. There were no specific complaints reported. He did not have nausea, vomiting, diarrhea, constipation, or cough. PT was able to tell me he had a headache. He denies dyspnea. In the ED head CT scan was negative for acute changes. CXR with mild interstitial changes suggesting edema. No pneumonia was visualized. Lab testing without significant findings. PT was noted to be bradycardic on telmetry with HR 40-60. HE did not have complaints of dizziness, lightheadedness or weakness on evaluation. - HOSPITAL COURSE Hospital Course: pt was admitted for the chief complaint of altered mental status. Pt became more clear, and return to her baseline. Pt has hx of Dementia and CVA. Pt's sister is pt's caregiver. There is no other complaint reported in this time hospital course. Pt's sister decline pt be discharged to other facility, and request pt is discharged to go to home. - ALLERGIES Allergies/Adverse Reactions: Allergies Allergy/AdvReac Type Severity Reaction Status Date / Time No Known Drug Allergies Allergy Unverified 01/10/14 14:31 - MEDICATIONS Home Medications: Ambulatory Orders Medication Instructions Recorded Confirmed Allopurinol 100 mg PO DAILY 10/18/16 01/02/17 Atorvastatin Calcium 20 mg PO DAILY 10/18/16 01/02/17 Budesonide/Formoterol Fumarate 2 puffs INH BID 10/18/16 01/02/17 [Symbicort 160-4.5 Mcg Inhaler] Metoprolol Succinate [Toprol Xl] 12.5 mg PO DAILY 10/18/16 01/02/17 Pantoprazole Sodium 20 mg PO BID 10/18/16 01/02/17 Risperidone [Risperdal] 1.5 mg PO DAILY 10/18/16 01/02/17 Sevelamer Carbonate [Renvela] 2,400 mg PO TID 10/18/16 01/02/17 Warfarin Sodium [Coumadin] 6 mg PO DAILY 10/18/16 01/02/17 hydrALAZINE [Apresoline] 25 mg PO TID 10/18/16 01/02/17 - PHYSICAL EXAM AT DISCHARGE General Appearance: positive: No acute distress, Alert. negative: Lethargic Eyes Bilateral: positive: Normal inspection, PERRL, EOMI, No lid inflammation, Conjunctivae nml ENT: positive: ENT inspection nml, Pharynx nml, No signs of dehydration. negative: Purulent nasal drainage, Pharyngeal erythema, Oral lesions Neck: positive: Nml inspection, Thyroid nml, Trachea midline. negative: Thyromegaly, Lymphadenopathy (R), Lymphadenopathy (L), Stiff neck, Swelling/ bruising, Tracheal deviation Respiratory: positive: Chest non-tender, No respiratory distress, Breath sounds nml. negative: Wheezes, Rales, Rhonchi Cardiovascular: positive: Regular rate & rhythm, No murmur, No gallop. negative : Tachycardia, Bradycardia, Systolic murmur, Diastolic murmur Peripheral Pulses: positive: 2+ Abdomen: positive: Non-tender, Nml bowel sounds, No distention. negative: Tenderness, Guarding, Rebound Back: positive: Nml inspection. negative: CVA tenderness (R), CVA tenderness (L ) Skin: positive: Color nml, Warm, Dry. negative: Cyanosis, Diaphoresis, Pallor Extremities: positive: Non-tender, Nml appearance. negative: Calf tenderness, Manny's sign/cords Neurologic/Psychiatric: positive: Sensation nml, Mood/affect nml, Disoriented to time. negative: Disoriented to person, Disoriented to place, Sensory loss, Facial droop, Slurred/abnml speech, Depressed mood/affect - LABS Result Diagrams: 01/04/17 05:07 01/04/17 05:07 - FOLLOW UP Follow Up: pt is advised to follow up PCP in one week
== END 2017-01-04 12:26 | disposition home or self-care (01) | DRG 292 ==
LOC: ED 12:24 → MS2 16:03
PROVIDERS: ADMIT Physician Assistant; ATTEND Nurse Practitioner Gerontology
DX: I13.0 Hypertensive heart and chronic kidney disease with heart failure and stage 1 through stage 4 chronic kidney disease, or unspecified chronic kidney disease (principal); E87.1 Hypo-osmolality and hyponatremia; I50.9 Heart failure, unspecified; E87.70 Fluid overload, unspecified; N18.9 Chronic kidney disease, unspecified; R00.1 Bradycardia, unspecified; R40.4 Transient alteration of awareness; D64.9 Anemia, unspecified; I25.10 Atherosclerotic heart disease of native coronary artery without angina pectoris; F17.200 Nicotine dependence, unspecified, uncomplicated; I69.319 Unspecified symptoms and signs involving cognitive functions following cerebral infarction; Z86.718 Personal history of other venous thrombosis and embolism; Z79.899 Other long term (current) drug therapy; I25.2 Old myocardial infarction; F03.90 Unspecified dementia, unspecified severity, without behavioral disturbance, psychotic disturbance, mood disturbance, and anxiety; E78.00 Pure hypercholesterolemia, unspecified; J44.9 Chronic obstructive pulmonary disease, unspecified; Z79.01 Long term (current) use of anticoagulants
CPT/HCPCS: 36415; 70450; 71010; 80048; 80053; 81001; 81003; 82270; 83690; 83880; 84484; 85025; 85610; 87086; 93005; 93306; 94640; 96361; 96374; 99284; 99285

== ENCOUNTER 2017-01-11 09:13 | Outpatient (CLI) | payer MEDICARE | END 2017-01-11 09:14 | disposition home or self-care (01) | LOC: LAB.F 09:13 | PROVIDERS: ATTEND Pharmacist | DX: I82.409 Acute embolism and thrombosis of unspecified deep veins of unspecified lower extremity (principal); I48.92 Unspecified atrial flutter | CPT/HCPCS: 85610 ==

== ENCOUNTER 2017-02-01 09:50 | Outpatient (CLI) | payer MEDICARE | END 2017-02-01 09:51 | disposition home or self-care (01) | LOC: LAB.F 09:50 | PROVIDERS: ATTEND Pharmacist | DX: I82.409 Acute embolism and thrombosis of unspecified deep veins of unspecified lower extremity (principal); I48.92 Unspecified atrial flutter | CPT/HCPCS: 85610 ==

== ENCOUNTER 2017-03-22 10:02 | Outpatient (CLI) | payer MEDICARE | END 2017-03-22 10:03 | disposition home or self-care (01) | LOC: LAB.F 10:02 | PROVIDERS: ATTEND Pharmacist | DX: I48.92 Unspecified atrial flutter (principal); I82.409 Acute embolism and thrombosis of unspecified deep veins of unspecified lower extremity | CPT/HCPCS: 85610 ==

== ENCOUNTER 2017-04-10 22:00 | Outpatient (CLI) | payer MEDICARE | END 2017-04-10 22:01 | disposition EMS.NT | LOC: EMS 22:00 | PROVIDERS: ATTEND Surgery | DX: Z03.89 Encounter for observation for other suspected diseases and conditions ruled out (principal); W01.0XXA Fall on same level from slipping, tripping and stumbling without subsequent striking against object, initial encounter; Y92.008 Other place in unspecified non-institutional (private) residence as the place of occurrence of the external cause ==

== ENCOUNTER 2017-04-19 08:59 | Outpatient (CLI) | payer MEDICARE | END 2017-04-19 09:00 | disposition critical access hospital (66) | LOC: EMS 08:59 | PROVIDERS: ATTEND Surgery | DX: R53.1 Weakness (principal); W18.30XA Fall on same level, unspecified, initial encounter; Y92.003 Bedroom of unspecified non-institutional (private) residence as the place of occurrence of the external cause | CPT/HCPCS: A0425; A0429 ==

== ENCOUNTER 2017-04-19 09:25 | Inpatient (IN) | payer MEDICARE ==
--- NOTE | 2017-04-19 09:33 | ED Physician Documentation ---
History of Present Illness - Stated complaint Stated Complaint: GLF - Additonal information Additional information: hx from EMS 71 male found on floor at foot of bed unknown of fell out if bed, tripped, syncope etc confused cannot recall event on coumadin denies BARR CP AP denies recent fever cough NVD Review of Systems Unable to obtain: Confused Constitutional: denies: Fever Cardiac: denies: Chest pain / pressure Respiratory: denies: Dyspnea, Cough GI: denies: Abdominal Pain, Nausea, Vomiting : denies: Dysuria Musculoskeletal: denies: Extremity pain Neurologic: reports: Generalized weakness, Confused. denies: Headache Endocrine: reports: Easy bruising / bleeding Immunocompromised: denies: Immunocompromised PD PAST MEDICAL HISTORY - Past Medical History Cardiovascular: Congestive heart failure, Hypertension, High cholesterol, Coronary artery disease, [place], Arrhythmia Respiratory: COPD Neuro: CVA, Head injury, Other Endocrine/Autoimmune: None GI: None : Dialysis, Frequency HEENT: None Psych: Other Musculoskeletal: Osteoarthritis, Gout Derm: None - Past Surgical History Past Surgical History: Yes General: Appendectomy, Other Neuro: Other - Present Medications Home Medications: Ambulatory Orders Medication Instructions Recorded Confirmed Allopurinol 100 mg PO DAILY 10/18/16 04/19/17 Atorvastatin Calcium 20 mg PO DAILY 10/18/16 04/19/17 Budesonide/Formoterol Fumarate 2 puffs INH BID 10/18/16 04/19/17 [Symbicort 160-4.5 Mcg Inhaler] Metoprolol Succinate [Toprol Xl] 12.5 mg PO DAILY 10/18/16 04/19/17 Risperidone [Risperdal] 1.5 mg PO QPM 10/18/16 04/19/17 Sevelamer Carbonate [Renvela] 2,400 mg PO TID 10/18/16 04/19/17 Warfarin Sodium [Coumadin] 6 mg PO DAILY 10/18/16 04/19/17 hydrALAZINE [Apresoline] 25 mg PO TID 10/18/16 04/19/17 Albuterol 2.5 mg INH Q4H PRN 04/19/17 04/19/17 Calcium Carbonate [Tums (Calcium 500 mg PO TIDWM 04/19/17 04/19/17 Carbonate 500mg)] - Allergies Allergies/Adverse Reactions: Allergies Allergy/AdvReac Type Severity Reaction Status Date / Time No Known Drug Allergies Allergy Unverified 01/10/14 14:31 - Social History Does the pt smoke?: Yes Smoking Status: Former smoker Does the pt drink ETOH?: No Does the pt have substance abuse?: No - Immunizations Immunizations are current?: Yes - POLST Patient has POLST: Yes POLST Status: Unable to obtain PD ED PE NORMAL - Vitals Vital signs reviewed: Yes - General General: No: Alert and oriented X 3 (X2 ) - HEENT HEENT: Atraumatic, PERRL (2) - Neck Neck: No bony TTP (but AMS cant clear - colar and image) - Cardiac Cardiac: RRR - Respiratory Respiratory: No respiratory distress, Clear bilaterally - Abdomen Abdomen: Soft, Non tender - Extremities Extremities: No deformity, No tenderness to palpate, Other (hips NT - but pt altered) - Neuro Neuro: No motor deficit, No sensory deficit, Normal speech, Other (diffusely weak an shaky but moves all ext, unable to grade strength). No: Alert and oriented X 3 Eye Opening: To Voice Motor: Obeys Commands Verbal: Confused GCS Score: 13 Results - Vitals Vitals: Vital Signs - 24 hr 04/19/17 04/19/17 09:28 11:04 Temperature 36.8 C 37.4 C Heart Rate 85 86 Respiratory 16 34 H Rate Blood Pressure 166/96 H 179/79 H O2 Saturation 96 97 Oxygen O2 Source [With Activity] Room air O2 Source Room air - EKG (time done) 0944 Rate: Rate (enter#) (80) Rhythm: NSR (clear P waves lead II) Intervals: RBBB Other comments: Other comments (significant m tion artifact) - Labs Labs: Laboratory Tests 04/19/17 04/19/17 04/19/17 09:38 09:38 09:38 WBC 9.6 RBC 4.12 L Hgb 13.2 L Hct 39.0 L MCV 94.4 H MCH 32.0 H MCHC 33.9 RDW 13.5 Plt Count 139 MPV 8.3 Neut # 7.9 H Lymph # 0.7 L [place] # 0.7 Eos # 0.1 Baso # 0.1 Absolute Nucleated RBC 0.00 Nucleated RBC % 0.0 PT INR Sodium 139 Potassium 3.8 Chloride 99 L Carbon Dioxide 28 Anion Gap 12.0 BUN 35 H Creatinine 2.3 H Estimated GFR (MDRD) 28 L Glucose 106 H Calcium 10.7 H Troponin I 0.85 H* Urine Color Urine Clarity Urine pH Ur Specific [place] Urine Protein Urine Glucose (UA) Urine Ketones Urine Occult Blood Urine Nitrite Urine Bilirubin Urine Urobilinogen Ur Leukocyte Esterase Urine RBC Urine WBC Ur Epithelial Cells Ur Squamous Epith Cells Amorphous Sediment Urine Bacteria Ur Microscopic Review Urine Culture Comments 04/19/17 04/19/17 09:38 10:40 WBC RBC Hgb Hct MCV MCH MCHC RDW Plt Count MPV Neut # Lymph # [place] # Eos # Baso # Absolute Nucleated RBC Nucleated RBC % PT 62.2 H INR 5.9 H* Sodium Potassium Chloride Carbon Dioxide Anion Gap BUN Creatinine Estimated GFR (MDRD) Glucose Calcium Troponin I Urine Color YELLOW Urine Clarity SL. CLOUDY Urine pH 6.0 Ur Specific [place] 1.020 Urine Protein >=300 Urine Glucose (UA) NEGATIVE Urine Ketones NEGATIVE Urine Occult Blood SMALL H Urine Nitrite NEGATIVE Urine Bilirubin NEGATIVE Urine Urobilinogen 0.2 (NORMAL) Ur Leukocyte Esterase NEGATIVE Urine RBC 6-10 H Urine WBC 4-5 Ur Epithelial Cells FEW Renal Tubular Ur Squamous Epith Cells MOD Squamous H Amorphous Sediment Moderate Urine Bacteria Rare Ur Microscopic Review INDICATED Urine Culture Comments NOT INDICATED - Rads (name of study) CTH Radiology: See rad report (no acute prior infarcts) CTCS Radiology: See rad report (no fx, 1.6 cm thyroid density) CXR Radiology: See rad report (no infiltrate mild pulm congestion) pelvis Radiology: See rad report (no fx, osteopenia) PD MEDICAL DECISION MAKING - ED course ED course: per EMR PMHx CAD [place] CHF CVA CKD on coumadin not on dialysis now though has been in past found down with AMS unknown if syncope fall etc CTH neg - but INR very high so merits serial neuro exams maybe another CTH also slightly + trop - could be 2/2 renal dz but an acute coronary event could have cause syncope and fall - needs serial trop echo etc UA still pending but think pt needs admit for above reasons so called hospitalist at 1045 Am and she will admit Departure - Departure Disposition: 66 [facility] DC/Xfer Clinical Impression: Renal insufficiency, Abnormal EKG, Supratherapeutic INR Altered mental status Qualifiers: Altered mental status type: unspecified Qualified Code(s): R41.82 - Altered mental status, unspecified Fall Qualifiers: Encounter type: initial encounter Qualified Code(s): W19.XXXA - Unspecified fall, initial encounter Discharge Date/Time: 04/19/17 11:59
[2017-04-19 09:53] LABS: BASOPHILS # (AUTO) 0.1 10^3/uL (0.0-0.1); BASOPHILS % (AUTO) 0.7 %; EOSINOPHILS # (AUTO) 0.1 10^3/uL (0.0-0.7); HGB - HEMOGLOBIN 13.2 g/dL (14.0-18.0); LYMPHOCYTES # (AUTO) 0.7 10^3/uL (1.5-3.5); LYMPHOCYTES % (AUTO) 7.5 %; MEAN CORPUSCULAR HGB CONC 33.9 g/dL (32.0-36.0); MEAN CORPUSCULAR VOLUME 94.4 fL (80.0-94.0); MEAN PLATELET VOLUME 8.3 fL (7.4-11.4); MONOCYTES # (AUTO) 0.7 10^3/uL (0.0-1.0); MONOCYTES % (AUTO) 7.7 %; NEUTROPHILS # (AUTO) 7.9 10^3/uL (1.5-6.6); NEUTROPHILS % (AUTO) 83.1 %; PLT - PLATELET COUNT 139 10^3/uL (130-450); RED BLOOD COUNT 4.12 10^6/uL (4.70-6.10); RED CELL DISTRIBUTION WIDTH 13.5 % (12.0-15.0); WHITE BLOOD COUNT 9.6 x10^3/uL (4.8-10.8)
[2017-04-19 10:03] LABS: PT - PROTHROMBIN TIME 62.2 secs (9.9-12.6)
[2017-04-19 10:05] LABS: CALCIUM 10.7 mg/dL (8.5-10.3); CREATININE 2.3 mg/dL (0.6-1.2)
[2017-04-19 10:17] LABS: INR 5.9 (0.8-1.2)
[2017-04-19 10:54] LABS: BILIRUBIN,URINE NEGATIVE (NEGATIVE); GLUCOSE, URINE (UA) NEGATIVE (NEGATIVE); KETONES,URINE (UA) NEGATIVE (NEGATIVE); LEUKOCYTE ESTERASE, URINE NEGATIVE (NEGATIVE); NITRITE,URINE NEGATIVE (NEGATIVE); OCCULT BLOOD,URINE SMALL (NEGATIVE); PROTEIN,URINE >=300 mg/dL (NEGATIVE); UROBILINOGEN,URINE 0.2 (NORMAL) E.U./dL (NORMAL)
[2017-04-19 10:57] LABS: CLARITY,URINE SL. CLOUDY (CLEAR)
--- NOTE | 2017-04-19 11:05 | CT Report ---
EXAM: CT CERVICAL SPINE WITHOUT CONTRAST DATE: 04/19/2017 10:27 AM. HISTORY: Fall AMS cant clear. COMPARISONS: None. TECHNIQUE: Thin-section axial images were acquired of the cervical spine without contrast. Post-proce ssing: Coronal and sagittal reformats. Other: None. In accordance with CT protocol optimization, one or more of the following dose reduction techniques w ere utilized for this exam: automated exposure control, adjustment of mA and/or KV based on patient s ize, or use of iterative reconstructive technique. FINDINGS: Alignment: No scoliosis or spondylolisthesis. Bones: No fracture or bone lesion. Interspace Levels/Facets: C1-C2: Unremarkable. C2-C3: Unremarkable. C3-C4: LEFT facet arthropathy C4-C5: Osteophyte C5-C6: Osteophyte, disk space narrowing C6-C7: Osteophyte C7-T1: Unremarkable. Musculature: Normal. No fatty atrophy. Other: Mild to moderate carotid calcifications. 1.6 cm left thyroid density The paravertebral and pre vertebral soft tissues are unremarkable. The lung apices are clear. IMPRESSION: 1. Mild DJD 2. 1.6 cm left thyroid density could be further evaluated with ultrasound [facility] Referring Provider Line: [phone] SITE ID: [id number]
--- NOTE | 2017-04-19 11:06 | CT Report ---
EXAM: CT HEAD EXAM DATE: 04/19/2017 10:27 AM. CLINICAL HISTORY: Fall AMS coumadin. COMPARISON: 01/02/2017. TECHNIQUE: Multiaxial CT images were obtained from the foramen magnum to the vertex. Reformats: Coron al. IV contrast: None. In accordance with CT protocol optimization, one or more of the following dose reduction techniques w ere utilized for this exam: automated exposure control, adjustment of mA and/or KV based on patient s ize, or use of iterative reconstructive technique. FINDINGS: Parenchyma: No intraparenchymal hemorrhage. Old bilateral parietal occipital infarcts. Old bilateral basal ganglia, infarcts No evidence of mass, midline shift, or CT findings of acute infarction. Benson- white differentiation is distinct. Moderate supratentorial periventricular white matter changes Extraaxial Spaces: Normal for age. No subdural or epidural collections identified. Ventricles: Normal in size and position. Sinuses and Orbits: Imaged paranasal sinuses, orbits, and mastoids show no significant abnormality. Bones: No evidence of fracture or calvarial defect. Other: None. IMPRESSION: 1. No acute bleeds, no acute infarcts. 2. Chronic infarcts bilateral parietal occipital lobes and bilateral basal ganglia. 3. Moderate supratentorial periventricular white matter changes [facility] Referring Provider Line: [phone] SITE ID: [id number]
--- NOTE | 2017-04-19 11:08 | XRAY Report ---
EXAM: CHEST RADIOGRAPHY EXAM DATE: 04/19/2017 10:34 AM. CLINICAL HISTORY: Fall weak confused. COMPARISON: None. TECHNIQUE: 1 view. FINDINGS: Lungs/Pleura: Pulmonary vascularity increased. No focal opacities evident. No pleural effusion. No pn eumothorax. Mediastinum: Stable cardiomegaly Other: Old left rib fracture IMPRESSION: 1. Stable cardiomegaly. 2. Mild pulmonary venous congestion [facility] Referring Provider Line: [phone] SITE ID: [id number]
[2017-04-19 11:10] LABS: SQUAMOUS EPITHELIAL CELL,UR MOD Squamous (<= Few)
[2017-04-19 11:11] LABS: AMORPHOUS SEDIMENT,UR Moderate /LPF; BACTERIA,URINE Rare /HPF (None Seen); EPITHELIAL CELLS,UR FEW Renal Tubular /HPF (<= Few)
--- NOTE | 2017-04-19 11:12 | XRAY Report ---
EXAM: PELVIS RADIOGRAPHY EXAM DATE: 04/19/2017 10:34 AM HISTORY: Fell AMS. COMPARISONS: None. TECHNIQUE: 2 views. FINDINGS: Bones: Osteopenia is present. Possible old bilateral inferior ramus fractures Joints: Mild bilateral hip joint space narrowing. Soft Tissues: Normal. No soft tissue swelling. IMPRESSION: Osteopenia. No acute fracture on x-ray imaging. Note: Osteopenia can limit detection of trabecular fracture. If the patient cannot ambulate, recomm end MRI hip to exclude occult fracture. [facility] Referring Provider Line: [phone] SITE ID: [id number]
[2017-04-19] MEDS ORDERED: SODIUM CHLORIDE FLUSH 0.9% 10 ML SYRINGE IVP PRN (11:13)
[2017-04-19] MEDS ORDERED: ONDANSETRON 4 MG/2 ML VIAL IVP PRN (11:13)
[2017-04-19] MEDS ORDERED: ACETAMINOPHEN 325 MG TABLET PO PRN (11:13)
--- NOTE | 2017-04-19 13:26 | HISTORY & PHYSICAL EXAMINATION ---
Chief Complaint - Chief Complaint Chief Complaint: found down, change in mental status. History of Present Illness - Admitted From Admitted From:: ED - History Obtained From Records Reviewed: yes History obtained from: chart review, POA Exam Limitations: Patient unable to communicate. - History of Present Illness HPI Comment/Other: Manjit Morin is a mentally challenged 71-year old with a past medical history of CVA, COPD, CAD, osteoarthritis, gout, CHF, HTN, hyperlipidemia, arrhythmias, and status post dialysis. Patient was found on the floor at the foot of his bed by sister, Camille who he lives with and is his primary special needs caregiver. [facility] in the [facility]. He started feeling better yesterday. Patient cannot recall the event and seemed more confused that baseline disability. A UA was collected and was noted to have a foul odor, positive with culture sent and pending. Troponin in the ED was elevated at 0.8, but may be due to CKD. INR was also elevated at 5.9, so coumadin was placed on hold. Patient will be admitted to hospitalist service for further cardiac work up. History - Past Medical History Cardiovascular: reports: Congestive heart failure, Hypertension, High cholesterol, Coronary artery disease, [place], Arrhythmia Respiratory: reports: COPD Neuro: reports: CVA, Head injury, Other Endocrine/Autoimmune: reports: None GI: reports: None : reports: Dialysis, Frequency HEENT: reports: None Psych: reports: Other Musculoskeletal: reports: Osteoarthritis, Gout Derm: reports: None MRSA Hx?: No - Past Surgical History General: reports: Appendectomy, Other Cardiovascular: reports: Cardiac catheterization, Angioplasty Neuro: reports: Other - Family & Social History Family History: Mother: , Father: , Brother: Living arrangement: At home Living Situation: With family, With caregiver(s) - Substance History Use: Uses substance without health or social issues: NONE Abuse: Recurrent use of substance despite neg consequences: NONE Dependence: Experiences withdrawal or developed tolerances: NONE - POLST Patient has POLST: Yes POLST Status: DNR Meds/Allgy - Home Medications Home Medications: Ambulatory Orders Medication Instructions Recorded Confirmed Allopurinol 100 mg PO DAILY 10/18/16 04/19/17 Atorvastatin Calcium 20 mg PO DAILY 10/18/16 04/19/17 Budesonide/Formoterol Fumarate 2 puffs INH BID 10/18/16 04/19/17 [Symbicort 160-4.5 Mcg Inhaler] Metoprolol Succinate [Toprol Xl] 12.5 mg PO DAILY 10/18/16 04/19/17 Risperidone [Risperdal] 1.5 mg PO QPM 10/18/16 04/19/17 Sevelamer Carbonate [Renvela] 2,400 mg PO TID 10/18/16 04/19/17 Warfarin Sodium [Coumadin] 6 mg PO DAILY 10/18/16 04/19/17 hydrALAZINE [Apresoline] 25 mg PO TID 10/18/16 04/19/17 Albuterol 2.5 mg INH Q4H PRN 04/19/17 04/19/17 Calcium Carbonate [Tums (Calcium 500 mg PO TIDWM 04/19/17 04/19/17 Carbonate 500mg)] - Allergies Allergies/Adverse Reactions: Allergies Allergy/AdvReac Type Severity Reaction Status Date / Time No Known Drug Allergies Allergy Unverified 01/10/14 14:31 Review of Systems - Constitutional Constitutional: reports: Fever, Chills, Weakness, Poor appetite - Eyes Eyes: reports: Irritation, Vision loss - Cardiovascular Cariovascular: reports: Decr. exercise tolerance, Orthopnea - Respiratory Respiratory: reports: Cough - Gastrointestinal Gastrointestinal: reports: Poor appetite - Genitourinary Genitourinary: reports: Dysuria, Incontinence - Musculoskeletal Musculoskeletal: reports: Gout, Joint swelling - Neurological Neurological: reports: Headache, Memory problems, Pre-existing deficit - Psychiatric Psychiatric: reports: Other (baseline behavioral deficiency.) - All Other Systems All Other Systems: reports: Reviewed and negative Exam - Vital Signs Reviewed Vital Signs: Yes Vital Signs: Vital Signs x48h Temp Pulse Resp BP Pulse Ox 04/19/17 12:14 37 C 69 32 H 196/72 H 99 - Physical Exam General Appearance: positive: Alert, Moderate distress, Anxious Eyes Bilateral: positive: Normal inspection ENT: positive: ENT inspection nml, Pharynx nml, Dry mucous membranes Neck: positive: Nml inspection, Thyroid nml, No JVD, Trachea midline Respiratory: positive: Chest non-tender, No respiratory distress, Rhonchi Cardiovascular: positive: Regular rate & rhythm, No gallop, Systolic murmur Peripheral Pulses: positive: 1+ Abdomen: positive: Non-tender, No organomegaly, Nml bowel sounds, No distention Back: positive: Nml inspection Skin: positive: Color nml, No rash, Warm, Dry Extremities: positive: Non-tender, Full ROM, Nml appearance, No pedal edema Neurologic/Psychiatric: positive: Disoriented to place, Disoriented to time, Weakness, Sensory loss, Other (non-verbal which is somewhat baseline.) Reflexes: Bicep (R): 2+, Bicep (L): 2+ Conclusion/Plan - Problem List (1) UTI (urinary tract infection) Conclusion/Plan: Patient tested + for a UTI while in the ED. Urine was noted to be foul smelling. Per sister, Camille, patient did not display fever or chills prior to admission. He has not been febrile while in the ED. Culture is pending. Plan: IV antibiotics and wait for culture results. Qualifiers: Urinary tract infection type: acute cystitis Hematuria presence: without hematuria Qualified Code(s): N30.00 - Acute cystitis without hematuria (2) Fall Conclusion/Plan: Patient was found on the floor after an unwitnessed fall, by his sister, who lives with him. Previously, patient has not had frequent falls and ambulates well. Per imaging results, no fractures present. Plan: 1:1 care if needed. Fall precautions. Continuity of nursing staff. Qualifiers: Encounter type: initial encounter Qualified Code(s): W19.XXXA - Unspecified fall, initial encounter (3) CKD (chronic kidney disease) Conclusion/Plan: Patient has a baseline creatinine of 2.0. Creatinine max on this admission was 2.3. Status post temporary dialysis treatment. Patient would not tolerate cardiac caths due to the propensity of JOI leading to chronic HD. Plan: IVFs, and monitor labs. Qualifiers: Chronic kidney disease stage: stage 3 (moderate) Qualified Code(s): N18.3 - Chronic kidney disease, stage 3 (moderate) (4) Abnormal levels of other serum enzymes Conclusion/Plan: Troponin was elevated at 0.8 in ED, and increased to 5.8 after 6 hours. 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 Plan: Start loading dose Plavix, high dose statin, remain on coumadin. Telemetry monitoring. (5) Atherosclerotic heart disease of [place] coronary artery without angina pectoris Conclusion/Plan: Patient had a cardiac event as recently as 2014 and is followed by [facility]. Plan: Continue medical management. Qualifiers: [place] vs. transplanted heart: [place] heart Qualified Code(s): I25.10 - Atherosclerotic heart disease of [place] coronary artery without angina pectoris (6) Intracranial injury with loss of consciousness Conclusion/Plan: History of TBI with chronic disability. SisterCamille states that it is often time difficult to communicate with her brother due to his baseline mental status. Plan: Re-orient often. Continuity of nursing care and frequent visits from loved ones encouraged. Qualifiers: Encounter type: subsequent encounter Qualified Code(s): S06.9X9D - Unspecified intracranial injury with loss of consciousness of unspecified duration, subsequent encounter (7) Aphasia Conclusion/Plan: Patient is noted to be baseline aphasic, but this hospitalization, it is worse with added confusion. Plan: Monitor and frequent nursing rounds. 1:1 care when available. (8) Altered mental status Conclusion/Plan: Patient has baseline mental disability, but after his recent fall, his mental status is worse with being completely non-verbal at first. Plan: Avoid benzodiazepines or sedating medications. DVT prophylaxis with SCDs and coumadin. Code status: DNR. Qualifiers: Altered mental status type: transient alteration of awareness Qualified Code(s): R40.4 - Transient alteration of awareness - Lab Results Lab results reviewed: Yes Toni Bones: 04/20/17 05:10 04/20/17 05:10 - Diagnostic Imaging Results Diagnostic Imaging Results: positive: Final report reviewed - EKG Results EKG Interpreted Independently: Yes EKG Comparison: Changed from prior EKG (R BBB) Issues/Core Measures - Anticipated LOS Anticipated Stay Length: 2 or more midnights - [facility] Requirement for [facility] I expect patient to be DC'd or transferred within 96 hours.: Yes - DVT/VTE - Prophylaxis VTE/DVT Device ordered at admit?: Yes VTE/DVT Prophylaxis med ordered at admit?: No Not Ordered - Medical Reason: Contraindicated - Stroke - Rehab Assessment Rehab services assessment to be ordered?: Yes - AMI - Statin at Admit Aspirin Prescribed on Admit: Yes
[2017-04-19] MEDS ORDERED: BUDESONIDE 0.5 MG/2 ML NEB INH SCH (14:00)
[2017-04-19] MEDS ORDERED: FORMOTEROL FUMARATE NEB 20 MCG/2 ML INH SCH (14:00)
[2017-04-19] MEDS: SODIUM CHLORIDE 0.9% 1,000 ML IV SCH ×2 (14:00→19:42)
[2017-04-19] MEDS: SODIUM CHLORIDE FLUSH 0.9% 10 ML SYRINGE IVP SCH ×2 (14:33→19:54)
[2017-04-19 16:19] LABS: ALBUMIN 3.3 g/dL (3.2-5.5); BILIRUBIN,DIRECT 0.2 mg/dL (0.1-0.5); TOTAL PROTEIN 6.4 g/dL (6.7-8.2)
[2017-04-19] MEDS ORDERED: HEPARIN 5,000 UNIT/ML VIAL IVP ONE (16:56)
[2017-04-19] MEDS ORDERED: HEPARIN 5,000 UNIT/ML VIAL IVP PRN (16:56)
[2017-04-19] MEDS ORDERED: CLOPIDOGREL 75 MG TABLET PO SCH (17:00)
[2017-04-19] MEDS ORDERED: HEPARIN 25,000 UNITS/500 ML NS 25,000 UNIT/500 ML BAG IV SCH (17:00)
[2017-04-19] MEDS ORDERED: CLOPIDOGREL 300 MG TABLET PO ONE (17:07)
[2017-04-19] MEDS: METOPROLOL TARTRATE 25 MG TABLET PO SCH ×2 (17:25→21:50)
[2017-04-19] MEDS: ASPIRIN CHEW 81 MG TABLET PO SCH (17:26)
[2017-04-19] MEDS: ISOSORBIDE MONONITRATE ER 30 MG TABLET PO SCH (17:26)
[2017-04-19] MEDS: BUDESONIDE 0.5 MG/2 ML NEB INH SCH (20:00)
[2017-04-19] MEDS: FORMOTEROL FUMARATE NEB 20 MCG/2 ML INH SCH (20:01)
[2017-04-19] MEDS: ATORVASTATIN 40 MG TABLET PO SCH (20:17)
[2017-04-19] MEDS: LORazepam 2 MG/ML VIAL IVP PRN (23:24)
[2017-04-20] MEDS: LORazepam 2 MG/ML VIAL IVP PRN (01:37)
[2017-04-20] MEDS: SODIUM CHLORIDE 0.9% 1,000 ML IV SCH (03:52)
[2017-04-20 05:22] LABS: HGB - HEMOGLOBIN 11.4 g/dL (14.0-18.0); MEAN CORPUSCULAR HEMOGLOBIN 31.5 pg (27.0-31.0); MEAN CORPUSCULAR HGB CONC 33.2 g/dL (32.0-36.0); MEAN CORPUSCULAR VOLUME 94.7 fL (80.0-94.0); RED BLOOD COUNT 3.63 10^6/uL (4.70-6.10); RED CELL DISTRIBUTION WIDTH 13.8 % (12.0-15.0); WHITE BLOOD COUNT 6.2 x10^3/uL (4.8-10.8)
[2017-04-20 05:29] LABS: PT - PROTHROMBIN TIME 78.8 secs (9.9-12.6)
[2017-04-20 05:36] LABS: ALBUMIN 3.2 g/dL (3.2-5.5); ALBUMIN/GLOBULIN RATIO 1.1 (1.0-2.2); BILIRUBIN,TOTAL 1.2 mg/dL (0.2-1.0); TOTAL PROTEIN 6.1 g/dL (6.7-8.2)
[2017-04-20 05:38] LABS: INR 7.5 (0.8-1.2)
[2017-04-20] MEDS ORDERED: PHYTONADIONE 10 MG/ML AMP PO SCH (06:03)
[2017-04-20] MEDS: SODIUM CHLORIDE FLUSH 0.9% 10 ML SYRINGE IVP SCH ×3 (06:56→21:10)
[2017-04-20] MEDS: PANTOPRAZOLE 40 MG TABLET PO SCH (06:56)
[2017-04-20] MEDS: BUDESONIDE 0.5 MG/2 ML NEB INH SCH ×2 (07:45→07:46)
[2017-04-20] MEDS: FORMOTEROL FUMARATE NEB 20 MCG/2 ML INH SCH (07:45)
[2017-04-20] MEDS: POLYETHYLENE GLYCOL 3350 17 GM PACKET PO SCH (08:13)
[2017-04-20] MEDS: ISOSORBIDE MONONITRATE ER 30 MG TABLET PO SCH (08:13)
[2017-04-20] MEDS: METOPROLOL TARTRATE 25 MG TABLET PO SCH ×2 (08:14→21:04)
[2017-04-20] MEDS: ASPIRIN CHEW 81 MG TABLET PO SCH (08:27)
[2017-04-20] MEDS: CLOPIDOGREL 75 MG TABLET PO SCH (08:41)
[2017-04-20] MEDS ORDERED: CLOPIDOGREL 75 MG TABLET ONE (08:44)
[2017-04-20] MEDS ORDERED: NON FORMULARY MED (Atorvastatin Calcium [Atorvastatin Calcium] 20 MG) PO SCH (09:00)
[2017-04-20] MEDS: POLYMYXIN B/TRIMETH OPHTH DROPS EACHEYE SCH ×4 (12:35→21:08)
[2017-04-20] MEDS ORDERED: HALOPERIDOL 1 MG TABLET PO PRN (13:37)
--- NOTE | 2017-04-20 14:36 | PROVIDER PROGRESS NOTE ---
Subjective - Prog Note Date Prog Note Date: 04/20/17 Prog Note Time: 14:36 - Subjective Pt reports feeling: No change Subjective: Manjit cannot answer questions when asked, but seems comfortable. He is not tolerating his telemetry so daily EKGs will be ordered. Current Medications - Current Medications Current Medications: Active Medications Acetaminophen (Tylenol) 650 mg PO Q4HR PRN PRN Reason: Pain 1 to 4 Aspirin (St Phuc Aspirin) 81 mg PO DAILYWM [facility] Last Admin: 04/20/17 08:27 Dose: 81 mg Atorvastatin Calcium (Lipitor) 80 mg PO QPM [facility] Last Admin: 04/19/17 20:17 Dose: 80 mg Budesonide (Pulmicort) 0.5 mg INH RTBID [facility] Last Admin: 04/20/17 07:46 Dose: 0.5 mg Clopidogrel Bisulfate (Plavix) 75 mg PO DAILY [facility] Last Admin: 04/20/17 08:41 Dose: 75 mg Formoterol Fumarate (Perforomist) 20 mcg INH RTBID [facility] Last Admin: 04/20/17 07:45 Dose: 20 mcg Haloperidol (Haldol) 1 mg PO Q6H PRN PRN Reason: Agitation Last Admin: 04/20/17 14:09 Dose: 1 mg Isosorbide Mononitrate (Imdur) 30 mg PO DAILY [facility] Last Admin: 04/20/17 08:13 Dose: 30 mg Lorazepam (Ativan Inj (Vial)) 0.5 mg IVP Q2H PRN PRN Reason: Anxiety Last Admin: 04/20/17 01:37 Dose: 0.5 mg Metoprolol Tartrate (Lopressor) 12.5 mg PO BID [facility] Last Admin: 04/20/17 08:14 Dose: 12.5 mg Ondansetron HCl (Zofran Inj) 4 mg IVP Q6HR PRN PRN Reason: Nausea / Vomiting Pantoprazole Sodium (Protonix) 40 mg PO QDAC [facility] Last Admin: 04/20/17 06:56 Dose: 40 mg Polyethylene Glycol (Miralax) 17 gm PO DAILY [facility] Last Admin: 04/20/17 08:13 Dose: 17 gm Polymyxin/Trimethoprim Sulfate (Polytrim Ophth Drops) 1 drops EACHEYE Q3HR [facility] Last Admin: 04/20/17 12:35 Dose: 1 drops Sodium Chloride (Normal Saline Flush 0.9%) 10 ml IVP PRN PRN PRN Reason: NEEDED PER PROVIDER ORDERS Last Admin: 04/19/17 14:11 Dose: 10 ml Sodium Chloride (Normal Saline Flush 0.9%) 10 ml IVP Q8HR [facility] Last Admin: 04/20/17 12:36 Dose: 10 ml Allopurinol 100 mg PO DAILY 10/18/16 Atorvastatin Calcium 20 mg PO DAILY 10/18/16 Budesonide/Formoterol Fumarate [Symbicort 160-4.5 Mcg Inhaler] 2 puffs INH BID 10/18/16 Metoprolol Succinate [Toprol Xl] 12.5 mg PO DAILY 10/18/16 Risperidone [Risperdal] 1.5 mg PO QPM 10/18/16 Sevelamer Carbonate [Renvela] 2,400 mg PO TID 10/18/16 Warfarin Sodium [Coumadin] 6 mg PO DAILY 10/18/16 hydrALAZINE [Apresoline] 25 mg PO TID 10/18/16 Albuterol 2.5 mg INH Q4H PRN 04/19/17 Calcium Carbonate [Tums (Calcium Carbonate 500mg)] 500 mg PO TIDWM 04/19/17 Objective - Vital Signs/Intake & Output Reviewed Vital Signs: Yes Vital Signs: Vital Signs x48h Temp Pulse Pulse Pulse Resp BP BP 04/20/17 11:41 37.2 C 78 18 04/20/17 10:25 78 144/72 H 04/20/17 09:00 37.0 C 65 16 04/20/17 08:14 153/96 H 04/20/17 07:45 64 20 BP Pulse Ox 04/20/17 11:41 144/72 H 100 04/20/17 10:25 04/20/17 09:00 153/96 H 100 04/20/17 08:14 04/20/17 07:45 Intake & Output: Intake & Output 04/17/17 04/18/17 04/19/17 04/20/17 23:59 23:59 23:59 23:59 Intake Total 1252.5 3640 Output Total 0 Balance 1252.5 3640 - Objective General Appearance: positive: Moderate distress, Anxious Eyes Bilateral: positive: Other (Patient suffers from pink eye bilaterally, crusty drainage. Treating with eye gtts.) ENT: positive: ENT inspection nml, Pharynx nml, Dry mucous membranes Neck: positive: Nml inspection, Thyroid nml, No JVD, Trachea midline Respiratory: positive: Chest non-tender, No respiratory distress, Wheezes, Rhonchi Cardiovascular: positive: Regular rate & rhythm, No gallop, Systolic murmur Peripheral Pulses: 1+ Radial (R), 1+ Radial (L) Abdomen: positive: Non-tender, No organomegaly, Nml bowel sounds, No distention Back: positive: Nml inspection Skin: positive: Color nml, No rash, Warm, Dry Extremities: positive: Non-tender, Full ROM, Nml appearance, No pedal edema Neurologic/Psychiatric: positive: Disoriented to person, Disoriented to place, Disoriented to time, Weakness, Sensory loss, Other (unable due to baseline disability.) Reflexes: Bicep (R): 2+, Bicep (L): 2+ - Lab Results Fish Bones: 04/21/17 05:52 04/21/17 05:52 Other Labs: Lab Results x24hrs 04/20/17 04/20/17 04/20/17 Range/Units 05:10 05:10 05:00 WBC 6.2 (4.8-10.8) x10^3/uL RBC 3.63 L (4.70-6.10) 10^6/uL Hgb 11.4 L (14.0-18.0) g/dL Hct 34.4 L (42.0-52.0) % MCV 94.7 H (80.0-94.0) fL MCH 31.5 H (27.0-31.0) pg MCHC 33.2 (32.0-36.0) g/dL RDW 13.8 (12.0-15.0) % Plt Count 127 L (130-450) 10^3/uL MPV 8.0 (7.4-11.4) fL PT 78.8 H (9.9-12.6) secs INR 7.5 H* (0.8-1.2) Sodium 139 (135-145) mmol/L Potassium 3.8 (3.5-5.0) mmol/L Chloride 107 (101-111) mmol/L Carbon Dioxide 24 (21-32) mmol/L Anion Gap 8.0 (6-13) BUN 28 H (6-20) mg/dL Creatinine 2.0 H (0.6-1.2) mg/dL Estimated GFR (MDRD) 33 L (>89) Glucose 104 H (70-100) mg/dL Calcium 9.0 (8.5-10.3) mg/dL Total Bilirubin 1.2 H (0.2-1.0) mg/dL Direct Bilirubin (0.1-0.5) mg/dL AST 38 (10-42) IU/L ALT 17 (10-60) IU/L Alkaline Phosphatase 54 (42-121) IU/L Troponin I (<0.49) ng/mL Total Protein 6.1 L (6.7-8.2) g/dL Albumin 3.2 (3.2-5.5) g/dL Globulin 2.9 (2.1-4.2) g/dL Albumin/Globulin Ratio 1.1 (1.0-2.2) 04/19/17 04/19/17 04/19/17 Range/Units 21:43 15:50 15:50 WBC (4.8-10.8) x10^3/uL RBC (4.70-6.10) 10^6/uL Hgb (14.0-18.0) g/dL Hct (42.0-52.0) % MCV (80.0-94.0) fL MCH (27.0-31.0) pg MCHC (32.0-36.0) g/dL RDW (12.0-15.0) % Plt Count (130-450) 10^3/uL MPV (7.4-11.4) fL PT (9.9-12.6) secs INR (0.8-1.2) Sodium (135-145) mmol/L Potassium (3.5-5.0) mmol/L Chloride (101-111) mmol/L Carbon Dioxide (21-32) mmol/L Anion Gap (6-13) BUN (6-20) mg/dL Creatinine (0.6-1.2) mg/dL Estimated GFR (MDRD) (>89) Glucose (70-100) mg/dL Calcium (8.5-10.3) mg/dL Total Bilirubin 1.0 (0.2-1.0) mg/dL Direct Bilirubin 0.2 (0.1-0.5) mg/dL AST 37 (10-42) IU/L ALT 16 (10-60) IU/L Alkaline Phosphatase 56 (42-121) IU/L Troponin I 5.08 H* 5.45 H* (<0.49) ng/mL Total Protein 6.4 L (6.7-8.2) g/dL Albumin 3.3 (3.2-5.5) g/dL Globulin 3.1 (2.1-4.2) g/dL Albumin/Globulin Ratio (1.0-2.2) - Diagnostic Imaging Diagnostic Imaging Results: positive: Final report reviewed Assessment/Plan - Problem List (1) UTI (urinary tract infection) Impression: Patient tested + for a UTI while in the ED. Urine was noted to be foul smelling. Per sister, Camille, patient did not display fever or chills prior to admission. He has not been febrile while in the ED. Culture is pending. Plan: IV antibiotics and wait for culture results. Qualifiers: Urinary tract infection type: acute cystitis Hematuria presence: without hematuria Qualified Code(s): N30.00 - Acute cystitis without hematuria (2) Fall Impression: Patient was found on the floor after an unwitnessed fall, by his sister, who lives with him. Previously, patient has not had frequent falls and ambulates well. Per imaging results, no fractures present. Plan: 1:1 care if needed. Fall precautions. Continuity of nursing staff. Qualifiers: Encounter type: initial encounter Qualified Code(s): W19.XXXA - Unspecified fall, initial encounter (3) CKD (chronic kidney disease) Impression: Patient has a baseline creatinine of 2.0. Creatinine max on this admission was 2.3. Status post temporary dialysis treatment. Patient would not tolerate cardiac caths due to the propensity of JOI leading to chronic HD. Plan: IVFs, and monitor labs. Qualifiers: Chronic kidney disease stage: stage 3 (moderate) Qualified Code(s): N18.3 - Chronic kidney disease, stage 3 (moderate) (4) Abnormal levels of other serum enzymes Impression: Troponin was elevated at 0.8 in ED, and increased to 5.8 after 6 hours. Primary storeroom attendant called and suggested medical management. Plan: Start loading dose Plavix, high dose statin, remain on coumadin. Telemetry monitoring has now been discontinued due to increased agitation. Daily EKGs ordered. 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 Plan: Continue medical management. Qualifiers: [place] vs. transplanted heart: [place] heart Qualified Code(s): I25.10 - Atherosclerotic heart disease of [place] coronary artery without angina pectoris (6) Intracranial injury with loss of consciousness Impression: History of TBI with chronic disability. SisterCamille states that it is often time difficult to communicate with her brother due to his baseline mental status. Plan: Re-orient often. Continuity of nursing care and frequent visits from loved ones encouraged. 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 Plan: Monitor and frequent nursing rounds. 1:1 care when available. (8) Altered mental status Impression: Patient has baseline mental disability, but after his recent fall, his mental status is worse with being completely non-verbal at first. Plan: Avoid benzodiazepines or sedating medications. Qualifiers: Altered mental status type: transient alteration of awareness Qualified Code(s): R40.4 - Transient alteration of awareness
[2017-04-20] MEDS ORDERED: CLOPIDOGREL 75 MG TABLET PO SCH (17:00)
[2017-04-20] MEDS: ATORVASTATIN 40 MG TABLET PO SCH (21:04)
[2017-04-21] MEDS: POLYMYXIN B/TRIMETH OPHTH DROPS EACHEYE SCH ×8 (00:39→21:19)
[2017-04-21] MEDS: SODIUM CHLORIDE FLUSH 0.9% 10 ML SYRINGE IVP SCH ×3 (04:58→20:33)
[2017-04-21 06:09] LABS: BASOPHILS % (AUTO) 0.3 %; EOSINOPHILS # (AUTO) 0.2 10^3/uL (0.0-0.7); EOSINOPHILS % (AUTO) 4.1 %; HGB - HEMOGLOBIN 10.9 g/dL (14.0-18.0); LYMPHOCYTES # (AUTO) 0.6 10^3/uL (1.5-3.5); LYMPHOCYTES % (AUTO) 9.8 %; MEAN CORPUSCULAR HEMOGLOBIN 31.5 pg (27.0-31.0); MEAN CORPUSCULAR HGB CONC 33.5 g/dL (32.0-36.0); MEAN CORPUSCULAR VOLUME 94.3 fL (80.0-94.0); MEAN PLATELET VOLUME 7.9 fL (7.4-11.4); MONOCYTES # (AUTO) 0.7 10^3/uL (0.0-1.0); MONOCYTES % (AUTO) 12.5 %; NEUTROPHILS # (AUTO) 4.4 10^3/uL (1.5-6.6); NEUTROPHILS % (AUTO) 73.3 %; PLT - PLATELET COUNT 129 10^3/uL (130-450); RED BLOOD COUNT 3.45 10^6/uL (4.70-6.10); RED CELL DISTRIBUTION WIDTH 13.5 % (12.0-15.0)
[2017-04-21 06:25] LABS: ALBUMIN/GLOBULIN RATIO 1.2 (1.0-2.2); CALCIUM 8.5 mg/dL (8.5-10.3); CREATININE 1.9 mg/dL (0.6-1.2); PHOSPHORUS 2.6 mg/dL (2.5-4.6); TOTAL PROTEIN 5.6 g/dL (6.7-8.2)
[2017-04-21] MEDS: PANTOPRAZOLE 40 MG TABLET PO SCH (06:46)
[2017-04-21] MEDS: FORMOTEROL FUMARATE NEB 20 MCG/2 ML INH SCH ×3 (07:27→20:20)
[2017-04-21] MEDS: BUDESONIDE 0.5 MG/2 ML NEB INH SCH ×2 (07:27→20:20)
[2017-04-21] MEDS: ASPIRIN CHEW 81 MG TABLET PO SCH (08:41)
[2017-04-21] MEDS: POLYETHYLENE GLYCOL 3350 17 GM PACKET PO SCH (08:44)
[2017-04-21] MEDS: ISOSORBIDE MONONITRATE ER 30 MG TABLET PO SCH (08:45)
[2017-04-21] MEDS ORDERED: ALBUTEROL NEB 2.5 MG/3 ML INH PRN (08:50)
[2017-04-21] MEDS ORDERED: METOPROLOL SUCCINATE 25 MG TABLET PO SCH (09:00)
[2017-04-21] MEDS: CLOPIDOGREL 75 MG TABLET PO SCH (09:05)
[2017-04-21 09:41] LABS: INR 1.3 (0.8-1.2)
[2017-04-21] MEDS: ALLOPURINOL 100 MG TABLET PO SCH (12:12)
[2017-04-21] MEDS: CALCIUM CARBONATE CHEW 500 MG TABLET PO SCH ×2 (12:12→16:51)
[2017-04-21] MEDS: hydrALAZINE 25 MG TABLET PO SCH ×3 (12:12→20:32)
[2017-04-21] MEDS: SEVELAMER 800 MG TABLET PO SCH ×2 (12:13→16:51)
[2017-04-21] MEDS: HEPARIN 5,000 UNIT/ML VIAL SUBQ SCH ×2 (12:25→21:19)
[2017-04-21] MEDS: WARFARIN 5 MG TABLET PO SCH (15:39)
[2017-04-21] MEDS: WARFARIN 1 MG TABLET PO SCH (15:48)
[2017-04-21] MEDS: risperiDONE 1 MG TABLET PO SCH (20:28)
[2017-04-21] MEDS: ATORVASTATIN 40 MG TABLET PO SCH (20:28)
--- NOTE | 2017-04-21 22:10 | PROVIDER PROGRESS NOTE ---
Subjective - Prog Note Date Prog Note Date: 04/21/17 Prog Note Time: 22:09 - Subjective Pt reports feeling: No change Subjective: Manjit seemed sleepy for the most of the day. He denies SOB, chest pain, N/V or a new cough. Current Medications - Current Medications Current Medications: Active Medications Acetaminophen (Tylenol) 650 mg PO Q4HR PRN PRN Reason: Pain 1 to 4 Albuterol () 2.5 mg INH Q4H PRN PRN Reason: Wheezing Allopurinol (Zyloprim) 100 mg PO DAILY [facility] Last Admin: 04/21/17 12:12 Dose: Not Given Aspirin (St Phuc Aspirin) 81 mg PO DAILYWM [facility] Last Admin: 04/21/17 08:41 Dose: 81 mg Atorvastatin Calcium (Lipitor) 80 mg PO QPM [facility] Last Admin: 04/21/17 20:28 Dose: 80 mg Budesonide (Pulmicort) 0.5 mg INH RTBID [facility] Last Admin: 04/21/17 20:20 Dose: 0.5 mg Calcium Carbonate/Glycine (Tums) 500 mg PO TIDWM [facility] Last Admin: 04/21/17 16:51 Dose: 500 mg Clopidogrel Bisulfate (Plavix) 75 mg PO DAILY [facility] Last Admin: 04/21/17 09:05 Dose: 75 mg Formoterol Fumarate (Perforomist) 20 mcg INH RTBID [facility] Last Admin: 04/21/17 20:20 Dose: 20 mcg Haloperidol (Haldol) 1 mg PO Q6H PRN PRN Reason: Agitation Last Admin: 04/20/17 14:09 Dose: 1 mg Heparin Sodium (Porcine) () 5,000 unit SUBQ BID [facility] Last Admin: 04/21/17 21:19 Dose: 5,000 unit Hydralazine HCl (Apresoline) 25 mg PO TID [facility] Last Admin: 04/21/17 20:32 Dose: 25 mg Isosorbide Mononitrate (Imdur) 30 mg PO DAILY [facility] Last Admin: 04/21/17 08:45 Dose: 30 mg Lorazepam (Ativan Inj (Vial)) 0.5 mg IVP Q2H PRN PRN Reason: Anxiety Last Admin: 04/20/17 01:37 Dose: 0.5 mg Ondansetron HCl (Zofran Inj) 4 mg IVP Q6HR PRN PRN Reason: Nausea / Vomiting Pantoprazole Sodium (Protonix) 40 mg PO QDAC [facility] Last Admin: 04/21/17 06:46 Dose: 40 mg Polyethylene Glycol (Miralax) 17 gm PO DAILY [facility] Last Admin: 04/21/17 08:44 Dose: 17 gm Polymyxin/Trimethoprim Sulfate (Polytrim Ophth Drops) 1 drops EACHEYE Q3HR [facility] Last Admin: 04/21/17 21:19 Dose: 1 drops Risperidone (Risperdal) 1.5 mg PO QPM [facility] Last Admin: 04/21/17 20:28 Dose: 1.5 mg Sevelamer HCl (Renagel) 2,400 mg PO TIDWM [facility] Last Admin: 04/21/17 16:51 Dose: 2,400 mg Sodium Chloride (Normal Saline Flush 0.9%) 10 ml IVP PRN PRN PRN Reason: NEEDED PER PROVIDER ORDERS Last Admin: 04/19/17 14:11 Dose: 10 ml Sodium Chloride (Normal Saline Flush 0.9%) 10 ml IVP Q8HR [facility] Last Admin: 04/21/17 20:33 Dose: 10 ml Warfarin Sodium (Coumadin) 5 mg PO QDWARFARIN [facility] Last Admin: 04/21/17 15:39 Dose: 5 mg Warfarin Sodium (Coumadin) 1 mg PO QDWARFARIN [facility] Last Admin: 04/21/17 15:48 Dose: 1 mg Allopurinol 100 mg PO DAILY 10/18/16 Atorvastatin Calcium 20 mg PO DAILY 10/18/16 Budesonide/Formoterol Fumarate [Symbicort 160-4.5 Mcg Inhaler] 2 puffs INH BID 10/18/16 Metoprolol Succinate [Toprol Xl] 12.5 mg PO DAILY 10/18/16 Risperidone [Risperdal] 1.5 mg PO QPM 10/18/16 Sevelamer Carbonate [Renvela] 2,400 mg PO TID 10/18/16 Warfarin Sodium [Coumadin] 6 mg PO DAILY 10/18/16 hydrALAZINE [Apresoline] 25 mg PO TID 10/18/16 Albuterol 2.5 mg INH Q4H PRN 04/19/17 Calcium Carbonate [Tums (Calcium Carbonate 500mg)] 500 mg PO TIDWM 04/19/17 Objective - Vital Signs/Intake & Output Reviewed Vital Signs: Yes Vital Signs: Vital Signs x48h Temp Pulse Resp BP Pulse Ox 04/21/17 19:24 36.8 C 50 L 20 144/43 H 95 04/21/17 17:26 146/50 H 04/21/17 16:47 36.9 C 42 L 20 169/50 H 96 Intake & Output: Intake & Output 04/18/17 04/19/17 04/20/17 04/21/17 23:59 23:59 23:59 23:59 Intake Total 1252.5 3790 1240 Output Total 0 250 Balance 1252.5 3790 990 - Objective General Appearance: positive: No acute distress, Alert, Lethargic Eyes Bilateral: positive: Normal inspection ENT: positive: ENT inspection nml, Pharynx nml, Dry mucous membranes Neck: positive: Nml inspection, Thyroid nml, No JVD, Trachea midline Respiratory: positive: Chest non-tender, No respiratory distress, Wheezes, Rhonchi Cardiovascular: positive: No gallop, Irregularly irregular, Bradycardia, Systolic murmur, Decreased pulse(s) Peripheral Pulses: 1+ Radial (R), 1+ Radial (L) Abdomen: positive: Non-tender, No organomegaly, Nml bowel sounds, Other (rounded , firm) Back: positive: Nml inspection Skin: positive: Color nml, No rash, Warm, Dry, Pallor Extremities: positive: Non-tender, Pedal edema Neurologic/Psychiatric: positive: Disoriented to place, Disoriented to time, Weakness, Sensory loss, Depressed mood/affect, Other (unable due to baseline TBI related deficit.) Reflexes: Bicep (R): 1+, Bicep (L): 1+ - Lab Results Fish Bones: 04/23/17 05:04 04/23/17 05:04 Other Labs: Lab Results x24hrs 04/21/17 04/21/17 04/21/17 Range/Units 09:27 05:52 05:52 WBC (4.8-10.8) x10^3/uL RBC (4.70-6.10) 10^6/uL Hgb (14.0-18.0) g/dL Hct (42.0-52.0) % MCV (80.0-94.0) fL MCH (27.0-31.0) pg MCHC (32.0-36.0) g/dL RDW (12.0-15.0) % Plt Count (130-450) 10^3/uL MPV (7.4-11.4) fL Neut # (1.5-6.6) 10^3/uL Lymph # (1.5-3.5) 10^3/uL [place] # (0.0-1.0) 10^3/uL Eos # (0.0-0.7) 10^3/uL Baso # (0.0-0.1) 10^3/uL Absolute Nucleated RBC x10^3/uL Nucleated RBC % /100WBC PT 15.0 H (9.9-12.6) secs INR 1.3 H (0.8-1.2) Sodium (135-145) mmol/L Potassium (3.5-5.0) mmol/L Chloride (101-111) mmol/L Carbon Dioxide (21-32) mmol/L Anion Gap (6-13) BUN (6-20) mg/dL Creatinine (0.6-1.2) mg/dL Estimated GFR (MDRD) (>89) Glucose (70-100) mg/dL Calcium (8.5-10.3) mg/dL Phosphorus (2.5-4.6) mg/dL Magnesium (1.7-2.8) mg/dL Total Bilirubin (0.2-1.0) mg/dL AST (10-42) IU/L ALT (10-60) IU/L Alkaline Phosphatase (42-121) IU/L Troponin I 1.62 H* (<0.49) ng/mL B-Natriuretic Peptide 476 H (5-100) pg/mL Total Protein (6.7-8.2) g/dL Albumin (3.2-5.5) g/dL Globulin (2.1-4.2) g/dL Albumin/Globulin Ratio (1.0-2.2) 04/21/17 04/21/17 Range/Units 05:52 05:52 WBC 6.0 (4.8-10.8) x10^3/uL RBC 3.45 L (4.70-6.10) 10^6/uL Hgb 10.9 L (14.0-18.0) g/dL Hct 32.5 L (42.0-52.0) % MCV 94.3 H (80.0-94.0) fL MCH 31.5 H (27.0-31.0) pg MCHC 33.5 (32.0-36.0) g/dL RDW 13.5 (12.0-15.0) % Plt Count 129 L (130-450) 10^3/uL MPV 7.9 (7.4-11.4) fL Neut # 4.4 (1.5-6.6) 10^3/uL Lymph # 0.6 L (1.5-3.5) 10^3/uL [place] # 0.7 (0.0-1.0) 10^3/uL Eos # 0.2 (0.0-0.7) 10^3/uL Baso # 0.0 (0.0-0.1) 10^3/uL Absolute Nucleated RBC 0.00 x10^3/uL Nucleated RBC % 0.0 /100WBC PT (9.9-12.6) secs INR (0.8-1.2) Sodium 140 (135-145) mmol/L Potassium 3.6 (3.5-5.0) mmol/L Chloride 108 (101-111) mmol/L Carbon Dioxide 24 (21-32) mmol/L Anion Gap 8.0 (6-13) BUN 23 H (6-20) mg/dL Creatinine 1.9 H (0.6-1.2) mg/dL Estimated GFR (MDRD) 35 L (>89) Glucose 93 (70-100) mg/dL Calcium 8.5 (8.5-10.3) mg/dL Phosphorus 2.6 (2.5-4.6) mg/dL Magnesium 2.0 (1.7-2.8) mg/dL Total Bilirubin 2.0 H (0.2-1.0) mg/dL AST 29 (10-42) IU/L ALT 16 (10-60) IU/L Alkaline Phosphatase 51 (42-121) IU/L Troponin I (<0.49) ng/mL B-Natriuretic Peptide (5-100) pg/mL Total Protein 5.6 L (6.7-8.2) g/dL Albumin 3.0 L (3.2-5.5) g/dL Globulin 2.6 (2.1-4.2) g/dL Albumin/Globulin Ratio 1.2 (1.0-2.2) - Diagnostic Imaging Diagnostic Imaging Results: positive: Final report reviewed Assessment/Plan - Problem List (1) UTI (urinary tract infection) Impression: Patient tested + for a UTI while in the ED. Urine was noted to be foul smelling. Per sister, aCmille, patient did not display fever or chills prior to admission. He has not been febrile while in the ED. Culture has not shown any causative organisms. Plan: IV antibiotics and wait for culture results. Qualifiers: Urinary tract infection type: acute cystitis Hematuria presence: without hematuria Qualified Code(s): N30.00 - Acute cystitis without hematuria (2) Fall Impression: Patient was found on the floor after an unwitnessed fall, by his sister, who lives with him. Previously, patient has not had frequent falls and ambulates well. Per imaging results, no fractures present. Plan: 1:1 care if needed. Fall precautions. Continuity of nursing staff. Qualifiers: Encounter type: initial encounter Qualified Code(s): W19.XXXA - Unspecified fall, initial encounter (3) CKD (chronic kidney disease) Impression: Patient has a baseline creatinine of 2.0. Creatinine max on this admission was 2.3. Status post temporary dialysis treatment. Patient would not tolerate cardiac caths due to the propensity of JOI leading to chronic HD. Plan: IVFs, and monitor labs. Qualifiers: Chronic kidney disease stage: stage 3 (moderate) Qualified Code(s): N18.3 - Chronic kidney disease, stage 3 (moderate) (4) Abnormal levels of other serum enzymes Impression: Troponin was elevated at 0.8 in ED, and increased to 5.8 after 6 hours, and continues to trend downward. Primary claim trainee called and suggested medical management. Plan: Start loading dose Plavix, high dose statin, remain on coumadin. Telemetry monitoring has now been discontinued due to increased agitation. Daily EKGs ordered. 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 Plan: Continue medical management. Qualifiers: [place] vs. transplanted heart: [place] heart Qualified Code(s): I25.10 - Atherosclerotic heart disease of [place] coronary artery without angina pectoris (6) Intracranial injury with loss of consciousness Impression: History of TBI with chronic disability. SisterCamille states that it is often time difficult to communicate with her brother due to his baseline mental status. Plan: Re-orient often. Continuity of nursing care and frequent visits from loved ones encouraged. 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 Plan: Monitor and frequent nursing rounds. 1:1 care when available. (8) Altered mental status Impression: Patient has baseline mental disability, but after his recent fall, his mental status is worse with being completely non-verbal at first. Plan: Avoid benzodiazepines or sedating medications. Qualifiers: Altered mental status type: transient alteration of awareness Qualified Code(s): R40.4 - Transient alteration of awareness
[2017-04-22] MEDS: POLYMYXIN B/TRIMETH OPHTH DROPS EACHEYE SCH ×8 (00:17→22:08)
[2017-04-22] MEDS: hydrALAZINE 25 MG TABLET PO SCH ×3 (05:00→22:08)
[2017-04-22] MEDS: SODIUM CHLORIDE FLUSH 0.9% 10 ML SYRINGE IVP SCH ×3 (05:00→22:08)
[2017-04-22 05:44] LABS: BASOPHILS % (AUTO) 0.8 %; EOSINOPHILS # (AUTO) 0.3 10^3/uL (0.0-0.7); EOSINOPHILS % (AUTO) 5.9 %; HGB - HEMOGLOBIN 10.6 g/dL (14.0-18.0); LYMPHOCYTES % (AUTO) 17.5 %; MEAN CORPUSCULAR HEMOGLOBIN 31.7 pg (27.0-31.0); MEAN CORPUSCULAR HGB CONC 33.4 g/dL (32.0-36.0); MEAN CORPUSCULAR VOLUME 94.8 fL (80.0-94.0); MEAN PLATELET VOLUME 8.1 fL (7.4-11.4); MONOCYTES # (AUTO) 0.6 10^3/uL (0.0-1.0); MONOCYTES % (AUTO) 10.2 %; NEUTROPHILS # (AUTO) 3.7 10^3/uL (1.5-6.6); NEUTROPHILS % (AUTO) 65.6 %; PLT - PLATELET COUNT 122 10^3/uL (130-450); RED BLOOD COUNT 3.34 10^6/uL (4.70-6.10); RED CELL DISTRIBUTION WIDTH 13.4 % (12.0-15.0); WHITE BLOOD COUNT 5.6 x10^3/uL (4.8-10.8)
[2017-04-22 05:47] LABS: INR 1.2 (0.8-1.2); PT - PROTHROMBIN TIME 13.1 secs (9.9-12.6)
[2017-04-22 05:54] LABS: ALBUMIN 2.8 g/dL (3.2-5.5); ALBUMIN/GLOBULIN RATIO 1.1 (1.0-2.2); BILIRUBIN,TOTAL 1.3 mg/dL (0.2-1.0); CALCIUM 8.4 mg/dL (8.5-10.3); CREATININE 2.2 mg/dL (0.6-1.2); TOTAL PROTEIN 5.4 g/dL (6.7-8.2)
[2017-04-22] MEDS: PANTOPRAZOLE 40 MG TABLET PO SCH (06:00)
[2017-04-22] MEDS: BUDESONIDE 0.5 MG/2 ML NEB INH SCH ×2 (07:30→19:20)
[2017-04-22] MEDS: FORMOTEROL FUMARATE NEB 20 MCG/2 ML INH SCH ×2 (07:30→19:20)
[2017-04-22] MEDS: ISOSORBIDE MONONITRATE ER 30 MG TABLET PO SCH (08:15)
[2017-04-22] MEDS: ALLOPURINOL 100 MG TABLET PO SCH (08:15)
[2017-04-22] MEDS: SEVELAMER 800 MG TABLET PO SCH ×3 (08:15→18:14)
[2017-04-22] MEDS: ASPIRIN CHEW 81 MG TABLET PO SCH (08:15)
[2017-04-22] MEDS: CLOPIDOGREL 75 MG TABLET PO SCH (08:15)
[2017-04-22] MEDS: CALCIUM CARBONATE CHEW 500 MG TABLET PO SCH ×3 (08:16→18:14)
[2017-04-22] MEDS: HEPARIN 5,000 UNIT/ML VIAL SUBQ SCH ×2 (08:17→22:08)
[2017-04-22] MEDS: POLYETHYLENE GLYCOL 3350 17 GM PACKET PO SCH (08:29)
[2017-04-22] MEDS: WARFARIN 1 MG TABLET PO SCH (14:36)
[2017-04-22] MEDS: WARFARIN 5 MG TABLET PO SCH (14:36)
[2017-04-22] MEDS: risperiDONE 1 MG TABLET PO SCH (22:07)
[2017-04-22] MEDS: ATORVASTATIN 40 MG TABLET PO SCH (22:07)
--- NOTE | 2017-04-22 23:51 | PROVIDER PROGRESS NOTE ---
Subjective - Prog Note Date Prog Note Date: 04/22/17 Prog Note Time: 23:50 - Subjective Pt reports feeling: Improved Subjective: SisterCamille was at the bedside. Patient is aware of his birthday being today. He denies SOB, chest pain, N/V or a new cough. Current Medications - Current Medications Current Medications: Active Medications Acetaminophen (Tylenol) 650 mg PO Q4HR PRN PRN Reason: Pain 1 to 4 Albuterol () 2.5 mg INH Q4H PRN PRN Reason: Wheezing Allopurinol (Zyloprim) 100 mg PO DAILY [facility] Last Admin: 04/22/17 08:15 Dose: 100 mg Aspirin (St Phuc Aspirin) 81 mg PO DAILYWM [facility] Last Admin: 04/22/17 08:15 Dose: 81 mg Atorvastatin Calcium (Lipitor) 80 mg PO QPM [facility] Last Admin: 04/22/17 22:07 Dose: 80 mg Budesonide (Pulmicort) 0.5 mg INH RTBID [facility] Last Admin: 04/22/17 19:20 Dose: 0.5 mg Calcium Carbonate/Glycine (Tums) 500 mg PO TIDWM [facility] Last Admin: 04/22/17 18:14 Dose: 500 mg Clopidogrel Bisulfate (Plavix) 75 mg PO DAILY [facility] Last Admin: 04/22/17 08:15 Dose: 75 mg Formoterol Fumarate (Perforomist) 20 mcg INH RTBID [facility] Last Admin: 04/22/17 19:20 Dose: 20 mcg Haloperidol (Haldol) 1 mg PO Q6H PRN PRN Reason: Agitation Last Admin: 04/20/17 14:09 Dose: 1 mg Heparin Sodium (Porcine) () 5,000 unit SUBQ BID [facility] Last Admin: 04/22/17 22:08 Dose: 5,000 unit Hydralazine HCl (Apresoline) 25 mg PO TID [facility] Last Admin: 04/22/17 22:08 Dose: 25 mg Isosorbide Mononitrate (Imdur) 30 mg PO DAILY [facility] Last Admin: 04/22/17 08:15 Dose: 30 mg Lorazepam (Ativan Inj (Vial)) 0.5 mg IVP Q2H PRN PRN Reason: Anxiety Last Admin: 04/20/17 01:37 Dose: 0.5 mg Ondansetron HCl (Zofran Inj) 4 mg IVP Q6HR PRN PRN Reason: Nausea / Vomiting Pantoprazole Sodium (Protonix) 40 mg PO QDAC [facility] Last Admin: 04/22/17 06:00 Dose: 40 mg Polyethylene Glycol (Miralax) 17 gm PO DAILY [facility] Last Admin: 04/22/17 08:29 Dose: 17 gm Polymyxin/Trimethoprim Sulfate (Polytrim Ophth Drops) 1 drops EACHEYE Q3HR [facility] Last Admin: 04/22/17 22:08 Dose: 1 drops Risperidone (Risperdal) 1.5 mg PO QPM [facility] Last Admin: 04/22/17 22:07 Dose: 1.5 mg Sevelamer HCl (Renagel) 2,400 mg PO TIDWM [facility] Last Admin: 04/22/17 18:14 Dose: 2,400 mg Sodium Chloride (Normal Saline Flush 0.9%) 10 ml IVP PRN PRN PRN Reason: NEEDED PER PROVIDER ORDERS Last Admin: 04/19/17 14:11 Dose: 10 ml Sodium Chloride (Normal Saline Flush 0.9%) 10 ml IVP Q8HR [facility] Last Admin: 04/22/17 22:08 Dose: 10 ml Warfarin Sodium (Coumadin) 5 mg PO QDWARFARIN [facility] Last Admin: 04/22/17 14:36 Dose: 5 mg Warfarin Sodium (Coumadin) 1 mg PO QDWARFARIN [facility] Last Admin: 04/22/17 14:36 Dose: 1 mg Allopurinol 100 mg PO DAILY 10/18/16 Atorvastatin Calcium 20 mg PO DAILY 10/18/16 Budesonide/Formoterol Fumarate [Symbicort 160-4.5 Mcg Inhaler] 2 puffs INH BID 10/18/16 Metoprolol Succinate [Toprol Xl] 12.5 mg PO DAILY 10/18/16 Risperidone [Risperdal] 1.5 mg PO QPM 10/18/16 Sevelamer Carbonate [Renvela] 2,400 mg PO TID 10/18/16 Warfarin Sodium [Coumadin] 6 mg PO DAILY 10/18/16 hydrALAZINE [Apresoline] 25 mg PO TID 10/18/16 Albuterol 2.5 mg INH Q4H PRN 04/19/17 Calcium Carbonate [Tums (Calcium Carbonate 500mg)] 500 mg PO TIDWM 04/19/17 Objective - Vital Signs/Intake & Output Reviewed Vital Signs: Yes Vital Signs: Vital Signs x48h Temp Pulse Pulse Resp BP Pulse Ox 04/22/17 22:02 61 22 193/55 H 95 04/22/17 19:50 37.2 C 59 L 18 173/64 H 96 04/22/17 19:20 56 L 16 04/22/17 16:18 36.7 C 65 20 159/58 H 97 Intake & Output: Intake & Output 04/19/17 04/20/17 04/21/17 04/22/17 23:59 23:59 23:59 23:59 Intake Total 1252.5 3790 1240 2230 Output Total 0 250 225 Balance 1252.5 3790 990 2005 - Objective General Appearance: positive: No acute distress, Alert, Lethargic Eyes Bilateral: positive: Normal inspection Eyes: OU Scleral icterus, OU Other (pink eye is resolving.) ENT: positive: ENT inspection nml, Pharynx nml, No signs of dehydration Neck: positive: Nml inspection, Thyroid nml, No JVD, Trachea midline Respiratory: positive: Chest non-tender, No respiratory distress, Breath sounds nml, Wheezes Cardiovascular: positive: Regular rate & rhythm, No gallop, Bradycardia, Systolic murmur Peripheral Pulses: 2+ Radial (R), 2+ Radial (L) Abdomen: positive: Non-tender, No organomegaly, Nml bowel sounds, No distention Rectal: positive: Non-tender Back: positive: Nml inspection Skin: positive: Color nml, No rash, Warm, Dry Extremities: positive: Non-tender, Full ROM, Nml appearance, Pedal edema Neurologic/Psychiatric: positive: Disoriented to place, Disoriented to time, Weakness, Sensory loss, Depressed mood/affect, Other (baseline delay) Reflexes: Bicep (R): 2+, Bicep (L): 2+ - Lab Results Fish Bones: 04/23/17 05:04 04/23/17 05:04 Other Labs: Lab Results x24hrs 04/22/17 04/22/17 04/22/17 Range/Units 05:32 05:32 05:32 WBC 5.6 (4.8-10.8) x10^3/uL RBC 3.34 L (4.70-6.10) 10^6/uL Hgb 10.6 L (14.0-18.0) g/dL Hct 31.7 L (42.0-52.0) % MCV 94.8 H (80.0-94.0) fL MCH 31.7 H (27.0-31.0) pg MCHC 33.4 (32.0-36.0) g/dL RDW 13.4 (12.0-15.0) % Plt Count 122 L (130-450) 10^3/uL MPV 8.1 (7.4-11.4) fL Neut # 3.7 (1.5-6.6) 10^3/uL Lymph # 1.0 L (1.5-3.5) 10^3/uL [place] # 0.6 (0.0-1.0) 10^3/uL Eos # 0.3 (0.0-0.7) 10^3/uL Baso # 0.0 (0.0-0.1) 10^3/uL Absolute Nucleated RBC 0.00 x10^3/uL Nucleated RBC % 0.0 /100WBC PT (9.9-12.6) secs INR (0.8-1.2) Sodium 137 (135-145) mmol/L Potassium 3.6 (3.5-5.0) mmol/L Chloride 106 (101-111) mmol/L Carbon Dioxide 24 (21-32) mmol/L Anion Gap 7.0 (6-13) BUN 26 H (6-20) mg/dL Creatinine 2.2 H (0.6-1.2) mg/dL Estimated GFR (MDRD) 29 L (>89) Glucose 95 (70-100) mg/dL Calcium 8.4 L (8.5-10.3) mg/dL Total Bilirubin 1.3 H (0.2-1.0) mg/dL AST 19 (10-42) IU/L ALT 13 (10-60) IU/L Alkaline Phosphatase 50 (42-121) IU/L Troponin I 1.22 H* (<0.49) ng/mL Total Protein 5.4 L (6.7-8.2) g/dL Albumin 2.8 L (3.2-5.5) g/dL Globulin 2.6 (2.1-4.2) g/dL Albumin/Globulin Ratio 1.1 (1.0-2.2) 04/22/17 Range/Units 05:32 WBC (4.8-10.8) x10^3/uL RBC (4.70-6.10) 10^6/uL Hgb (14.0-18.0) g/dL Hct (42.0-52.0) % MCV (80.0-94.0) fL MCH (27.0-31.0) pg MCHC (32.0-36.0) g/dL RDW (12.0-15.0) % Plt Count (130-450) 10^3/uL MPV (7.4-11.4) fL Neut # (1.5-6.6) 10^3/uL Lymph # (1.5-3.5) 10^3/uL [place] # (0.0-1.0) 10^3/uL Eos # (0.0-0.7) 10^3/uL Baso # (0.0-0.1) 10^3/uL Absolute Nucleated RBC x10^3/uL Nucleated RBC % /100WBC PT 13.1 H (9.9-12.6) secs INR 1.2 (0.8-1.2) Sodium (135-145) mmol/L Potassium (3.5-5.0) mmol/L Chloride (101-111) mmol/L Carbon Dioxide (21-32) mmol/L Anion Gap (6-13) BUN (6-20) mg/dL Creatinine (0.6-1.2) mg/dL Estimated GFR (MDRD) (>89) Glucose (70-100) mg/dL Calcium (8.5-10.3) mg/dL Total Bilirubin (0.2-1.0) mg/dL AST (10-42) IU/L ALT (10-60) IU/L Alkaline Phosphatase (42-121) IU/L Troponin I (<0.49) ng/mL Total Protein (6.7-8.2) g/dL Albumin (3.2-5.5) g/dL Globulin (2.1-4.2) g/dL Albumin/Globulin Ratio (1.0-2.2) - Diagnostic Imaging Diagnostic Imaging Results: positive: Final report reviewed Assessment/Plan - Problem List (1) UTI (urinary tract infection) Impression: Patient tested + for a UTI while in the ED. Urine was noted to be foul smelling. Per sisterCamille, patient did not display fever or chills prior to admission. He has not been febrile while in the ED. Culture has not grown out any suspicious organisms. Plan: IV antibiotics and wait for culture results. Qualifiers: Urinary tract infection type: acute cystitis Hematuria presence: without hematuria Qualified Code(s): N30.00 - Acute cystitis without hematuria (2) Fall Impression: Patient was found on the floor after an unwitnessed fall, by his sister, who lives with him. Previously, patient has not had frequent falls and ambulates well. Per imaging results, no fractures present. Plan: 1:1 care if needed. Fall precautions. Continuity of nursing staff. Qualifiers: Encounter type: initial encounter Qualified Code(s): W19.XXXA - Unspecified fall, initial encounter (3) CKD (chronic kidney disease) Impression: Patient has a baseline creatinine of 2.0. Creatinine max on this admission was 2.3. Status post temporary dialysis treatment. Patient would not tolerate cardiac caths due to the propensity of JOI leading to chronic HD. Creatinine today was 2.2. Plan: We will continue to monitor labs. Qualifiers: Chronic kidney disease stage: stage 3 (moderate) Qualified Code(s): N18.3 - Chronic kidney disease, stage 3 (moderate) (4) Abnormal levels of other serum enzymes Impression: Troponin was elevated at 0.8 in ED, and increased to 5.8 after 6 hours. Primary lap hand tool called and suggested medical management. Plan: Start loading dose Plavix, high dose statin, remain on coumadin. Telemetry monitoring has now been discontinued due to increased agitation. Daily EKGs ordered. 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 Plan: Continue medical management. Qualifiers: [place] vs. transplanted heart: [place] heart Qualified Code(s): I25.10 - Atherosclerotic heart disease of [place] coronary artery without angina pectoris (6) Intracranial injury with loss of consciousness Impression: History of TBI with chronic disability. SisterCamille states that it is often time difficult to communicate with her brother due to his baseline mental status. Plan: Re-orient often. Continuity of nursing care and frequent visits from loved ones encouraged. 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 Plan: Monitor and frequent nursing rounds. 1:1 care when available. (8) Altered mental status Impression: Patient has baseline mental disability, but after his recent fall, his mental status is worse with being completely non-verbal at first. Plan: Avoid benzodiazepines or sedating medications. [facility] 96 hour ATTESTATION: In good wanda I feel that the patient is reasonably expected to be discharged and/or transferred to another hospital within 96 hours. Qualifiers: Altered mental status type: transient alteration of awareness Qualified Code(s): R40.4 - Transient alteration of awareness
[2017-04-23] MEDS: POLYMYXIN B/TRIMETH OPHTH DROPS EACHEYE SCH ×8 (00:23→20:53)
[2017-04-23 05:41] LABS: BASOPHILS % (AUTO) 0.4 %; EOSINOPHILS # (AUTO) 0.3 10^3/uL (0.0-0.7); EOSINOPHILS % (AUTO) 5.3 %; HGB - HEMOGLOBIN 10.3 g/dL (14.0-18.0); LYMPHOCYTES # (AUTO) 0.9 10^3/uL (1.5-3.5); LYMPHOCYTES % (AUTO) 14.8 %; MEAN CORPUSCULAR HEMOGLOBIN 31.4 pg (27.0-31.0); MEAN CORPUSCULAR HGB CONC 33.3 g/dL (32.0-36.0); MEAN CORPUSCULAR VOLUME 94.4 fL (80.0-94.0); MEAN PLATELET VOLUME 8.6 fL (7.4-11.4); MONOCYTES # (AUTO) 0.7 10^3/uL (0.0-1.0); MONOCYTES % (AUTO) 11.1 %; NEUTROPHILS # (AUTO) 4.1 10^3/uL (1.5-6.6); NEUTROPHILS % (AUTO) 68.4 %; PLT - PLATELET COUNT 129 10^3/uL (130-450); RED BLOOD COUNT 3.28 10^6/uL (4.70-6.10); RED CELL DISTRIBUTION WIDTH 13.2 % (12.0-15.0)
[2017-04-23 05:49] LABS: INR 1.4 (0.8-1.2); PT - PROTHROMBIN TIME 15.7 secs (9.9-12.6)
[2017-04-23 05:55] LABS: ALBUMIN 2.7 g/dL (3.2-5.5); BILIRUBIN,TOTAL 0.7 mg/dL (0.2-1.0); CALCIUM 8.1 mg/dL (8.5-10.3); CREATININE 2.1 mg/dL (0.6-1.2); TOTAL PROTEIN 5.4 g/dL (6.7-8.2)
[2017-04-23] MEDS: SODIUM CHLORIDE FLUSH 0.9% 10 ML SYRINGE IVP SCH ×3 (05:55→20:52)
[2017-04-23] MEDS: PANTOPRAZOLE 40 MG TABLET PO SCH (06:02)
[2017-04-23] MEDS: hydrALAZINE 25 MG TABLET PO SCH ×3 (06:02→20:51)
[2017-04-23] MEDS: FORMOTEROL FUMARATE NEB 20 MCG/2 ML INH SCH ×2 (07:30→19:30)
[2017-04-23] MEDS: BUDESONIDE 0.5 MG/2 ML NEB INH SCH ×2 (07:30→19:30)
[2017-04-23] MEDS: POLYETHYLENE GLYCOL 3350 17 GM PACKET PO SCH (08:47)
[2017-04-23] MEDS: CLOPIDOGREL 75 MG TABLET PO SCH (08:48)
[2017-04-23] MEDS: SEVELAMER 800 MG TABLET PO SCH ×3 (08:48→19:13)
[2017-04-23] MEDS: ALLOPURINOL 100 MG TABLET PO SCH (08:48)
[2017-04-23] MEDS: ASPIRIN CHEW 81 MG TABLET PO SCH (08:48)
[2017-04-23] MEDS: CALCIUM CARBONATE CHEW 500 MG TABLET PO SCH ×3 (08:48→19:13)
[2017-04-23] MEDS: ISOSORBIDE MONONITRATE ER 30 MG TABLET PO SCH (08:48)
[2017-04-23] MEDS: HEPARIN 5,000 UNIT/ML VIAL SUBQ SCH (08:49)
--- NOTE | 2017-04-23 08:54 | PROVIDER PROGRESS NOTE ---
Subjective - Prog Note Date Prog Note Date: 04/23/17 Prog Note Time: 08:53 - Subjective Pt reports feeling: Improved Subjective: Manjit offers no complaints when asked, but unreliable when asking about pain. Current Medications - Current Medications Current Medications: Active Medications Acetaminophen (Tylenol) 650 mg PO Q4HR PRN PRN Reason: Pain 1 to 4 Albuterol () 2.5 mg INH Q4H PRN PRN Reason: Wheezing Last Admin: 04/23/17 07:30 Dose: 2.5 mg Allopurinol (Zyloprim) 100 mg PO DAILY [facility] Last Admin: 04/23/17 08:48 Dose: 100 mg Aspirin (St Phuc Aspirin) 81 mg PO DAILYWM [facility] Last Admin: 04/23/17 08:48 Dose: 81 mg Atorvastatin Calcium (Lipitor) 20 mg PO QPM [facility] Budesonide (Pulmicort) 0.5 mg INH RTBID [facility] Last Admin: 04/23/17 07:30 Dose: 0.5 mg Calcium Carbonate/Glycine (Tums) 500 mg PO TIDWM [facility] Last Admin: 04/23/17 11:53 Dose: 500 mg Clopidogrel Bisulfate (Plavix) 75 mg PO DAILY [facility] Last Admin: 04/23/17 08:48 Dose: 75 mg Enoxaparin Sodium (Lovenox) 80 mg SUBQ DAILY [facility] Formoterol Fumarate (Perforomist) 20 mcg INH RTBID [facility] Last Admin: 04/23/17 07:30 Dose: 20 mcg Heparin Sodium (Porcine) () 5,000 unit SUBQ BID [facility] Last Admin: 04/23/17 08:49 Dose: 5,000 unit Hydralazine HCl (Apresoline) 25 mg PO TID [facility] Last Admin: 04/23/17 13:57 Dose: 25 mg Isosorbide Mononitrate (Imdur) 30 mg PO DAILY [facility] Last Admin: 04/23/17 08:48 Dose: 30 mg Lorazepam (Ativan Inj (Vial)) 0.5 mg IVP Q2H PRN PRN Reason: Anxiety Last Admin: 04/20/17 01:37 Dose: 0.5 mg Ondansetron HCl (Zofran Inj) 4 mg IVP Q6HR PRN PRN Reason: Nausea / Vomiting Pantoprazole Sodium (Protonix) 40 mg PO QDAC [facility] Last Admin: 04/23/17 06:02 Dose: 40 mg Polyethylene Glycol (Miralax) 17 gm PO DAILY [facility] Last Admin: 04/23/17 08:47 Dose: 17 gm Polymyxin/Trimethoprim Sulfate (Polytrim Ophth Drops) 1 drops EACHEYE Q3HR [facility] Last Admin: 04/23/17 14:01 Dose: 1 drops Risperidone (Risperdal) 1.5 mg PO QPM [facility] Last Admin: 04/22/17 22:07 Dose: 1.5 mg Sevelamer HCl (Renagel) 2,400 mg PO TIDWM [facility] Last Admin: 04/23/17 11:53 Dose: 2,400 mg Sodium Chloride (Normal Saline Flush 0.9%) 10 ml IVP PRN PRN PRN Reason: NEEDED PER PROVIDER ORDERS Last Admin: 04/19/17 14:11 Dose: 10 ml Sodium Chloride (Normal Saline Flush 0.9%) 10 ml IVP Q8HR [facility] Last Admin: 04/23/17 13:57 Dose: 10 ml Warfarin Sodium (Coumadin) 5 mg PO QDWARFARIN [facility] Last Admin: 04/23/17 13:57 Dose: 5 mg Warfarin Sodium ([facility]in) [facility] Allopurinol 100 mg PO DAILY 10/18/16 Atorvastatin Calcium 20 mg PO DAILY 10/18/16 Budesonide/Formoterol Fumarate [Symbicort 160-4.5 Mcg Inhaler] 2 puffs INH BID 10/18/16 Metoprolol Succinate [Toprol Xl] 12.5 mg PO DAILY 10/18/16 Risperidone [Risperdal] 1.5 mg PO QPM 10/18/16 Sevelamer Carbonate [Renvela] 2,400 mg PO TID 10/18/16 Warfarin Sodium [Coumadin] 6 mg PO DAILY 10/18/16 hydrALAZINE [Apresoline] 25 mg PO TID 10/18/16 Albuterol 2.5 mg INH Q4H PRN 04/19/17 Calcium Carbonate [Tums (Calcium Carbonate 500mg)] 500 mg PO TIDWM 04/19/17 Objective - Vital Signs/Intake & Output Reviewed Vital Signs: Yes Vital Signs: Vital Signs x48h Temp Pulse Pulse Resp BP Pulse Ox 04/23/17 08:39 36.9 C 65 22 151/54 H 95 04/23/17 07:30 54 L 20 04/23/17 05:58 37.5 C 53 L 165/81 H 04/23/17 05:00 37.3 C 56 L 16 182/55 H 95 Intake & Output: Intake & Output 04/20/17 04/21/17 04/22/17 04/23/17 23:59 23:59 23:59 23:59 Intake Total 3790 1240 2230 1040 Output Total 250 225 Balance 3790 990 2005 1040 - Objective General Appearance: positive: No acute distress, Alert Eyes Bilateral: positive: PERRL Eyes: OU Scleral icterus, OU Other (still with bilateral eye drainage.) Neck: positive: Nml inspection, Thyroid nml, No JVD Respiratory: positive: Chest non-tender, No respiratory distress, Breath sounds nml, Wheezes Cardiovascular: positive: Regular rate & rhythm, No gallop, Bradycardia, Systolic murmur Peripheral Pulses: 2+ Radial (R), 2+ Radial (L) Abdomen: positive: Non-tender, No organomegaly, Nml bowel sounds Back: positive: Nml inspection Skin: positive: Color nml, No rash, Warm, Dry Extremities: positive: Non-tender, Full ROM, Nml appearance, Pedal edema (mild) Reflexes: Bicep (R): 3+, Bicep (L): 3+ - Lab Results Fish Bones: 04/23/17 05:04 04/23/17 05:04 Other Labs: Lab Results x24hrs 04/23/17 04/23/17 04/23/17 Range/Units 05:04 05:04 05:04 WBC (4.8-10.8) x10^3/uL RBC (4.70-6.10) 10^6/uL Hgb (14.0-18.0) g/dL Hct (42.0-52.0) % MCV (80.0-94.0) fL MCH (27.0-31.0) pg MCHC (32.0-36.0) g/dL RDW (12.0-15.0) % Plt Count (130-450) 10^3/uL MPV (7.4-11.4) fL Neut # (1.5-6.6) 10^3/uL Lymph # (1.5-3.5) 10^3/uL [place] # (0.0-1.0) 10^3/uL Eos # (0.0-0.7) 10^3/uL Baso # (0.0-0.1) 10^3/uL Absolute Nucleated RBC x10^3/uL Nucleated RBC % /100WBC PT 15.7 H (9.9-12.6) secs INR 1.4 H (0.8-1.2) Sodium 136 (135-145) mmol/L Potassium 3.6 (3.5-5.0) mmol/L Chloride 105 (101-111) mmol/L Carbon Dioxide 26 (21-32) mmol/L Anion Gap 5.0 L (6-13) BUN 23 H (6-20) mg/dL Creatinine 2.1 H (0.6-1.2) mg/dL Estimated GFR (MDRD) 31 L (>89) Glucose 104 H (70-100) mg/dL Calcium 8.1 L (8.5-10.3) mg/dL Total Bilirubin 0.7 (0.2-1.0) mg/dL AST 17 (10-42) IU/L ALT 13 (10-60) IU/L Alkaline Phosphatase 58 (42-121) IU/L Troponin I 0.91 H* (<0.49) ng/mL Total Protein 5.4 L (6.7-8.2) g/dL Albumin 2.7 L (3.2-5.5) g/dL Globulin 2.7 (2.1-4.2) g/dL Albumin/Globulin Ratio 1.0 (1.0-2.2) 04/23/17 Range/Units 05:04 WBC 6.0 (4.8-10.8) x10^3/uL RBC 3.28 L (4.70-6.10) 10^6/uL Hgb 10.3 L (14.0-18.0) g/dL Hct 30.9 L (42.0-52.0) % MCV 94.4 H (80.0-94.0) fL MCH 31.4 H (27.0-31.0) pg MCHC 33.3 (32.0-36.0) g/dL RDW 13.2 (12.0-15.0) % Plt Count 129 L (130-450) 10^3/uL MPV 8.6 (7.4-11.4) fL Neut # 4.1 (1.5-6.6) 10^3/uL Lymph # 0.9 L (1.5-3.5) 10^3/uL [place] # 0.7 (0.0-1.0) 10^3/uL Eos # 0.3 (0.0-0.7) 10^3/uL Baso # 0.0 (0.0-0.1) 10^3/uL Absolute Nucleated RBC 0.00 x10^3/uL Nucleated RBC % 0.0 /100WBC PT (9.9-12.6) secs INR (0.8-1.2) Sodium (135-145) mmol/L Potassium (3.5-5.0) mmol/L Chloride (101-111) mmol/L Carbon Dioxide (21-32) mmol/L Anion Gap (6-13) BUN (6-20) mg/dL Creatinine (0.6-1.2) mg/dL Estimated GFR (MDRD) (>89) Glucose (70-100) mg/dL Calcium (8.5-10.3) mg/dL Total Bilirubin (0.2-1.0) mg/dL AST (10-42) IU/L ALT (10-60) IU/L Alkaline Phosphatase (42-121) IU/L Troponin I (<0.49) ng/mL Total Protein (6.7-8.2) g/dL Albumin (3.2-5.5) g/dL Globulin (2.1-4.2) g/dL Albumin/Globulin Ratio (1.0-2.2) - Diagnostic Imaging Diagnostic Imaging Results: positive: Final report reviewed Assessment/Plan - Problem List (1) UTI (urinary tract infection) Impression: Patient tested + for a UTI while in the ED. Urine was noted to be foul smelling. Per sister, Camille, patient did not display fever or chills prior to admission. He has not been febrile while in the ED. Culture has not grown out any suspicious organisms. Plan: IV antibiotics and wait for culture results. Qualifiers: Urinary tract infection type: acute cystitis Hematuria presence: without hematuria Qualified Code(s): N30.00 - Acute cystitis without hematuria (2) Fall Impression: Patient was found on the floor after an unwitnessed fall, by his sister, who lives with him. Previously, patient has not had frequent falls and ambulates well. Per imaging results, no fractures present. Plan: 1:1 care if needed. Fall precautions. Continuity of nursing staff. Qualifiers: Encounter type: initial encounter Qualified Code(s): W19.XXXA - Unspecified fall, initial encounter (3) CKD (chronic kidney disease) Impression: Patient has a baseline creatinine of 2.0. Creatinine max on this admission was 2.3. Status post temporary dialysis treatment. Patient would not tolerate cardiac caths due to the propensity of JOI leading to chronic HD. Creatinine today was 2.1. Plan: We will continue to monitor labs. Qualifiers: Chronic kidney disease stage: stage 3 (moderate) Qualified Code(s): N18.3 - Chronic kidney disease, stage 3 (moderate) (4) Abnormal levels of other serum enzymes Impression: Troponin was elevated at 0.8 in ED, and increased to 5.8 after 6 hours. Primary bath mix operator called and suggested medical management. Plan: Start loading dose Plavix, high dose statin, remain on coumadin. Telemetry monitoring has now been discontinued due to increased agitation. Daily EKGs ordered. 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 Plan: Continue medical management. Qualifiers: [place] vs. transplanted heart: [place] heart Qualified Code(s): I25.10 - Atherosclerotic heart disease of [place] coronary artery without angina pectoris (6) Intracranial injury with loss of consciousness Impression: History of TBI with chronic disability. SisterCamille states that it is often time difficult to communicate with her brother due to his baseline mental status. Plan: Re-orient often. Continuity of nursing care and frequent visits from loved ones encouraged. 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 This is now back to normal per sisterCamille and states that it is often times difficult to get patient to follow commands. Plan: Monitor and frequent nursing rounds. 1:1 care when available. (8) Altered mental status Impression: Patient has baseline mental disability, but after his recent fall, his mental status is worse with being completely non-verbal at first. Plan: Avoid benzodiazepines or sedating medications. [facility] 96 hour ATTESTATION: In good wanda I feel that the patient is reasonably expected to be discharged and/or transferred to another hospital within 96 hours. Qualifiers: Altered mental status type: transient alteration of awareness Qualified Code(s): R40.4 - Transient alteration of awareness (9) Myocardial infarction acute Impression: Patient was noted to have an elevated troponin with a max value of 5.45 and has been trending downward. Troponin today was 0.91. Plan: Medical management with beta piyush, that has been discontinued due to patient not tolerating lowest daily dose of 12.5mg. Plavix with an expected length of use ~6 months and remain on coumadin that has been bridged with heparin. Qualifiers: Myocardial infarction ST status: non-ST elevation myocardial infarction Qualified Code(s): I21.4 - Non-ST elevation (NSTEMI) myocardial infarction
[2017-04-23] MEDS: WARFARIN 1 MG TABLET PO SCH (13:57)
[2017-04-23] MEDS: WARFARIN 5 MG TABLET PO SCH (13:57)
[2017-04-23] MEDS ORDERED: WARFARIN 1 MG TABLET PO SCH (15:21)
[2017-04-23] MEDS ORDERED: ENOXAPARIN 80 MG/0.8 ML SYRINGE SUBQ SCH (16:00)
[2017-04-23] MEDS ORDERED: SENNA 8.6 MG TABLET PO SCH (17:00)
[2017-04-23] MEDS ORDERED: DOCUSATE SODIUM 250 MG CAPSULE PO SCH (17:00)
[2017-04-23] MEDS: risperiDONE 1 MG TABLET PO SCH (20:47)
[2017-04-23] MEDS: ATORVASTATIN 40 MG TABLET PO SCH (20:51)
[2017-04-24] MEDS: POLYMYXIN B/TRIMETH OPHTH DROPS EACHEYE SCH ×5 (01:58→12:06)
[2017-04-24 05:28] LABS: BASOPHILS % (AUTO) 0.2 %; EOSINOPHILS # (AUTO) 0.4 10^3/uL (0.0-0.7); EOSINOPHILS % (AUTO) 7.1 %; LYMPHOCYTES # (AUTO) 0.9 10^3/uL (1.5-3.5); LYMPHOCYTES % (AUTO) 16.5 %; MEAN CORPUSCULAR HEMOGLOBIN 31.4 pg (27.0-31.0); MEAN CORPUSCULAR HGB CONC 33.1 g/dL (32.0-36.0); MEAN CORPUSCULAR VOLUME 94.8 fL (80.0-94.0); MEAN PLATELET VOLUME 8.3 fL (7.4-11.4); MONOCYTES # (AUTO) 0.6 10^3/uL (0.0-1.0); MONOCYTES % (AUTO) 10.6 %; NEUTROPHILS # (AUTO) 3.7 10^3/uL (1.5-6.6); NEUTROPHILS % (AUTO) 65.6 %; PLT - PLATELET COUNT 144 10^3/uL (130-450); RED BLOOD COUNT 3.49 10^6/uL (4.70-6.10); RED CELL DISTRIBUTION WIDTH 13.7 % (12.0-15.0); WHITE BLOOD COUNT 5.6 x10^3/uL (4.8-10.8)
[2017-04-24 05:33] LABS: INR 2.4 (0.8-1.2); PT - PROTHROMBIN TIME 25.7 secs (9.9-12.6)
[2017-04-24 05:41] LABS: ALBUMIN 2.9 g/dL (3.2-5.5); ALBUMIN/GLOBULIN RATIO 1.1 (1.0-2.2); BILIRUBIN,TOTAL 0.5 mg/dL (0.2-1.0); CALCIUM 8.3 mg/dL (8.5-10.3); CREATININE 2.2 mg/dL (0.6-1.2); TOTAL PROTEIN 5.6 g/dL (6.7-8.2)
[2017-04-24] MEDS: PANTOPRAZOLE 40 MG TABLET PO SCH (06:43)
[2017-04-24] MEDS: hydrALAZINE 25 MG TABLET PO SCH ×3 (06:46→21:41)
[2017-04-24] MEDS: SODIUM CHLORIDE FLUSH 0.9% 10 ML SYRINGE IVP SCH ×3 (06:46→21:41)
[2017-04-24] MEDS: FORMOTEROL FUMARATE NEB 20 MCG/2 ML INH SCH ×2 (07:52→19:31)
[2017-04-24] MEDS: BUDESONIDE 0.5 MG/2 ML NEB INH SCH ×2 (07:52→19:31)
[2017-04-24] MEDS ORDERED: ENOXAPARIN 80 MG/0.8 ML SYRINGE SUBQ SCH (09:00)
[2017-04-24] MEDS: ASPIRIN CHEW 81 MG TABLET PO SCH (09:12)
[2017-04-24] MEDS: CALCIUM CARBONATE CHEW 500 MG TABLET PO SCH ×3 (09:12→16:55)
[2017-04-24] MEDS: CLOPIDOGREL 75 MG TABLET PO SCH (09:13)
[2017-04-24] MEDS: ALLOPURINOL 100 MG TABLET PO SCH (09:13)
[2017-04-24] MEDS: SEVELAMER 800 MG TABLET PO SCH ×3 (09:13→16:55)
[2017-04-24] MEDS: ISOSORBIDE MONONITRATE ER 30 MG TABLET PO SCH (09:13)
[2017-04-24] MEDS: POLYETHYLENE GLYCOL 3350 17 GM PACKET PO SCH (10:34)
[2017-04-24] MEDS ORDERED: LORazepam 2 MG/ML VIAL IVP PRN (13:42)
[2017-04-24] MEDS: WARFARIN 5 MG TABLET PO SCH (14:41)
--- NOTE | 2017-04-24 21:04 | PROVIDER PROGRESS NOTE ---
Subjective - Prog Note Date Prog Note Date: 04/24/17 Prog Note Time: 21:02 - Subjective Pt reports feeling: Improved Subjective: Manjit has no complaints and does not respond appropriately to exam questions. It appears that he is comfortable and does not show signs of pain. Current Medications - Current Medications Current Medications: Active Medications Acetaminophen (Tylenol) 650 mg PO Q4HR PRN PRN Reason: Pain 1 to 4 Last Admin: 04/23/17 22:00 Dose: 650 mg Albuterol () 2.5 mg INH Q4H PRN PRN Reason: Wheezing Last Admin: 04/23/17 07:30 Dose: 2.5 mg Allopurinol (Zyloprim) 100 mg PO DAILY [facility] Last Admin: 04/24/17 09:13 Dose: 100 mg Aspirin (St Phuc Aspirin) 81 mg PO DAILYWM [facility] Last Admin: 04/24/17 09:12 Dose: 81 mg Atorvastatin Calcium (Lipitor) 20 mg PO QPM [facility] Last Admin: 04/24/17 21:41 Dose: 20 mg Budesonide (Pulmicort) 0.5 mg INH RTBID [facility] Last Admin: 04/25/17 07:40 Dose: 0.5 mg Calcium Carbonate/Glycine (Tums) 500 mg PO TIDWM [facility] Last Admin: 04/24/17 16:55 Dose: 500 mg Clopidogrel Bisulfate (Plavix) 75 mg PO DAILY [facility] Last Admin: 04/24/17 09:13 Dose: 75 mg Formoterol Fumarate (Perforomist) 20 mcg INH RTBID [facility] Last Admin: 04/25/17 07:40 Dose: 20 mcg Hydralazine HCl (Apresoline) 25 mg PO TID [facility] Last Admin: 04/25/17 06:13 Dose: 25 mg Isosorbide Mononitrate (Imdur) 30 mg PO DAILY [facility] Last Admin: 04/24/17 09:13 Dose: 30 mg Lorazepam (Ativan Inj (Vial)) 0.5 mg IVP Q6H PRN PRN Reason: Anxiety Ondansetron HCl (Zofran Inj) 4 mg IVP Q6HR PRN PRN Reason: Nausea / Vomiting Pantoprazole Sodium (Protonix) 40 mg PO QDAC [facility] Last Admin: 04/25/17 06:12 Dose: 40 mg Polyethylene Glycol (Miralax) 17 gm PO DAILY [facility] Last Admin: 04/24/17 10:34 Dose: Not Given Risperidone (Risperdal) 1.5 mg PO QPM [facility] Last Admin: 04/24/17 21:41 Dose: 1.5 mg Sevelamer HCl (Renagel) 800 mg PO TIDWM [facility] Last Admin: 04/24/17 16:55 Dose: 800 mg Sodium Chloride (Normal Saline Flush 0.9%) 10 ml IVP PRN PRN PRN Reason: NEEDED PER PROVIDER ORDERS Last Admin: 04/19/17 14:11 Dose: 10 ml Sodium Chloride (Normal Saline Flush 0.9%) 10 ml IVP Q8HR [facility] Last Admin: 04/25/17 06:12 Dose: 10 ml Warfarin Sodium (Coumadin) 5 mg PO QDWARFARIN [facility] Last Admin: 04/24/17 14:41 Dose: 5 mg Allopurinol 100 mg PO DAILY 10/18/16 Atorvastatin Calcium 20 mg PO DAILY 10/18/16 Budesonide/Formoterol Fumarate [Symbicort 160-4.5 Mcg Inhaler] 2 puffs INH BID 10/18/16 Metoprolol Succinate [Toprol Xl] 12.5 mg PO DAILY 10/18/16 Risperidone [Risperdal] 1.5 mg PO QPM 10/18/16 Sevelamer Carbonate [Renvela] 2,400 mg PO TID 10/18/16 Warfarin Sodium [Coumadin] 6 mg PO DAILY 10/18/16 hydrALAZINE [Apresoline] 25 mg PO TID 10/18/16 Albuterol 2.5 mg INH Q4H PRN 04/19/17 Calcium Carbonate [Tums (Calcium Carbonate 500mg)] 500 mg PO TIDWM 04/19/17 Objective - Vital Signs/Intake & Output Reviewed Vital Signs: Yes Vital Signs: Vital Signs x48h Temp Pulse Pulse Resp BP Pulse Ox 04/24/17 20:40 36.9 C 51 L 20 174/56 H 98 04/24/17 19:30 55 L 20 04/24/17 17:00 37.3 C 63 18 143/50 H 97 Intake & Output: Intake & Output 04/21/17 04/22/17 04/23/17 04/24/17 23:59 23:59 23:59 23:59 Intake Total 1240 2230 2550 1200 Output Total 250 225 700 Balance 990 2005 1850 1200 - Objective General Appearance: positive: No acute distress, Alert Eyes Bilateral: positive: Normal inspection Eyes: OU Other (mild tearing, bilateral) ENT: positive: ENT inspection nml, Pharynx nml, Dry mucous membranes Neck: positive: Nml inspection, Thyroid nml, No JVD, Trachea midline, Stiff neck Respiratory: positive: Chest non-tender, No respiratory distress, Other (mild crackles.) Cardiovascular: positive: Regular rate & rhythm, No gallop, Systolic murmur Peripheral Pulses: 2+ Radial (R), 2+ Radial (L) Abdomen: positive: Non-tender, No organomegaly, Nml bowel sounds, No distention Back: positive: Nml inspection Skin: positive: Color nml, No rash, Warm, Dry Extremities: positive: Non-tender, Full ROM, Pedal edema Neurologic/Psychiatric: positive: Weakness, Sensory loss, Other (non-verbal for the exam.) Reflexes: Bicep (R): 2+, Bicep (L): 2+ - Lab Results Fish Bones: 04/24/17 05:00 04/25/17 04:45 Other Labs: Lab Results x24hrs 04/24/17 04/24/17 04/24/17 Range/Units 05:00 05:00 05:00 WBC (4.8-10.8) x10^3/uL RBC (4.70-6.10) 10^6/uL Hgb (14.0-18.0) g/dL Hct (42.0-52.0) % MCV (80.0-94.0) fL MCH (27.0-31.0) pg MCHC (32.0-36.0) g/dL RDW (12.0-15.0) % Plt Count (130-450) 10^3/uL MPV (7.4-11.4) fL Neut # (1.5-6.6) 10^3/uL Lymph # (1.5-3.5) 10^3/uL Tyler # (0.0-1.0) 10^3/uL Eos # (0.0-0.7) 10^3/uL Baso # (0.0-0.1) 10^3/uL Absolute Nucleated RBC x10^3/uL Nucleated RBC % /100WBC PT 25.7 H (9.9-12.6) secs INR 2.4 H (0.8-1.2) Sodium 139 (135-145) mmol/L Potassium 4.1 (3.5-5.0) mmol/L Chloride 108 (101-111) mmol/L Carbon Dioxide 25 (21-32) mmol/L Anion Gap 6.0 (6-13) BUN 25 H (6-20) mg/dL Creatinine 2.2 H (0.6-1.2) mg/dL Estimated GFR (MDRD) 29 L (>89) Glucose 99 (70-100) mg/dL Calcium 8.3 L (8.5-10.3) mg/dL Total Bilirubin 0.5 (0.2-1.0) mg/dL AST 16 (10-42) IU/L ALT 13 (10-60) IU/L Alkaline Phosphatase 59 (42-121) IU/L Troponin I 0.45 (<0.49) ng/mL Total Protein 5.6 L (6.7-8.2) g/dL Albumin 2.9 L (3.2-5.5) g/dL Globulin 2.7 (2.1-4.2) g/dL Albumin/Globulin Ratio 1.1 (1.0-2.2) 04/24/17 Range/Units 05:00 WBC 5.6 (4.8-10.8) x10^3/uL RBC 3.49 L (4.70-6.10) 10^6/uL Hgb 11.0 L (14.0-18.0) g/dL Hct 33.1 L (42.0-52.0) % MCV 94.8 H (80.0-94.0) fL MCH 31.4 H (27.0-31.0) pg MCHC 33.1 (32.0-36.0) g/dL RDW 13.7 (12.0-15.0) % Plt Count 144 (130-450) 10^3/uL MPV 8.3 (7.4-11.4) fL Neut # 3.7 (1.5-6.6) 10^3/uL Lymph # 0.9 L (1.5-3.5) 10^3/uL Tyler # 0.6 (0.0-1.0) 10^3/uL Eos # 0.4 (0.0-0.7) 10^3/uL Baso # 0.0 (0.0-0.1) 10^3/uL Absolute Nucleated RBC 0.00 x10^3/uL Nucleated RBC % 0.0 /100WBC PT (9.9-12.6) secs INR (0.8-1.2) Sodium (135-145) mmol/L Potassium (3.5-5.0) mmol/L Chloride (101-111) mmol/L Carbon Dioxide (21-32) mmol/L Anion Gap (6-13) BUN (6-20) mg/dL Creatinine (0.6-1.2) mg/dL Estimated GFR (MDRD) (>89) Glucose (70-100) mg/dL Calcium (8.5-10.3) mg/dL Total Bilirubin (0.2-1.0) mg/dL AST (10-42) IU/L ALT (10-60) IU/L Alkaline Phosphatase (42-121) IU/L Troponin I (<0.49) ng/mL Total Protein (6.7-8.2) g/dL Albumin (3.2-5.5) g/dL Globulin (2.1-4.2) g/dL Albumin/Globulin Ratio (1.0-2.2) - Diagnostic Imaging Diagnostic Imaging Results: positive: Final report reviewed Assessment/Plan - Problem List (1) UTI (urinary tract infection) Impression: Patient tested + for a UTI while in the ED. Urine was noted to be foul smelling. Per sister, Camille, patient did not display fever or chills prior to admission. He has not been febrile while in the ED. Culture has not grown out any suspicious organisms. Plan: IV antibiotics and no growth on blood cultures. Qualifiers: Urinary tract infection type: acute cystitis Hematuria presence: without hematuria Qualified Code(s): N30.00 - Acute cystitis without hematuria (2) Fall Impression: Patient was found on the floor after an unwitnessed fall, by his sister, who lives with him. Previously, patient has not had frequent falls and ambulates well. Per imaging results, no fractures present. Plan: Fall precautions. Continuity of nursing staff. Qualifiers: Encounter type: initial encounter Qualified Code(s): W19.XXXA - Unspecified fall, initial encounter (3) Abnormal levels of other serum enzymes Impression: Troponin was elevated at 0.8 in ED, and increased to 5.8 after 6 hours. Primary customer solutions architect called and suggested medical management. Plan: Continue with Plavix, statin, remain on coumadin. Telemetry monitoring has now been discontinued due to increased agitation. Daily EKGs ordered. (4) Aphasia with TBI (traumatic brain injury), open Impression: Patient is noted to be baseline aphasic, but this hospitalization, it is worse with added confusion. This is now back to normal per sisterCamille and states that it is often times difficult to get patient to follow commands. Plan: Monitor and frequent nursing rounds. (5) Altered mental status Impression: Patient has baseline mental disability, but after his recent fall, his mental status is worse with being completely non-verbal at first. Plan: Avoid benzodiazepines or sedating medications. Qualifiers: Altered mental status type: transient alteration of awareness Qualified Code(s): R40.4 - Transient alteration of awareness (6) Myocardial infarction acute Impression: Patient was noted to have an elevated troponin with a max value of 5.45 and has been trending downward. Troponin today was 0.16. Plan: Patient intolerable to beta piyush. Plavix with an expected length of use ~6 months and remain on coumadin that has been bridged with heparin. Qualifiers: Myocardial infarction ST status: non-ST elevation myocardial infarction Qualified Code(s): I21.4 - Non-ST elevation (NSTEMI) myocardial infarction (7) CKD (chronic kidney disease) Impression: Patient has a baseline creatinine of 2.0. Creatinine max on this admission was 2.3. Status post temporary dialysis treatment. Patient would not tolerate cardiac caths due to the propensity of JOI leading to chronic HD. Creatinine today was 1.9. Home medication Sevelamer was decreased due to chronically low calcium. Plan: We will continue to monitor labs. Qualifiers: Chronic kidney disease stage: stage 3 (moderate) Qualified Code(s): N18.3 - Chronic kidney disease, stage 3 (moderate)
[2017-04-24] MEDS: ATORVASTATIN 40 MG TABLET PO SCH (21:41)
[2017-04-24] MEDS: risperiDONE 1 MG TABLET PO SCH (21:41)
[2017-04-25 05:05] LABS: INR 2.5 (0.8-1.2); PT - PROTHROMBIN TIME 27.3 secs (9.9-12.6)
[2017-04-25 05:12] LABS: ALBUMIN 2.7 g/dL (3.2-5.5); BILIRUBIN,TOTAL 0.6 mg/dL (0.2-1.0); CALCIUM 8.2 mg/dL (8.5-10.3); CREATININE 1.9 mg/dL (0.6-1.2); TOTAL PROTEIN 5.4 g/dL (6.7-8.2)
[2017-04-25] MEDS: SODIUM CHLORIDE FLUSH 0.9% 10 ML SYRINGE IVP SCH (06:12)
[2017-04-25] MEDS: PANTOPRAZOLE 40 MG TABLET PO SCH (06:12)
[2017-04-25] MEDS: hydrALAZINE 25 MG TABLET PO SCH ×2 (06:13→12:25)
[2017-04-25] MEDS: BUDESONIDE 0.5 MG/2 ML NEB INH SCH (07:40)
[2017-04-25] MEDS: FORMOTEROL FUMARATE NEB 20 MCG/2 ML INH SCH (07:40)
--- NOTE | 2017-04-25 08:53 | DISCHARGE SUMMARY ---
"Discharge Summary Admit Date: 04/19/17 Discharge Date: 04/25/17 Discharging Provider: CAMMIE Solomon Primary Care Provider: Suzanna Frey Code Status: Do Not Attempt Resuscitation Condition at Discharge: Good Discharge Disposition: 01 Home, Self Care - DIAGNOSES Admission Diagnoses: Urinary tract infection, site not specified (N39.0) Unspecified fall, initial encounter (W19.XXXA) Chronic kidney disease, unspecified (N18.9) Abnormal levels of other serum enzymes (R74.8) Atherosclerotic heart disease of [place] coronary artery without angina pectoris (I25.10) Unspecified intracranial injury with loss of consciousness of unspecified duration, initial encounter (S06.9X9A) Aphasia (R47.01) Altered mental status, unspecified (R41.82 Discharge Diagnoses with Status of Each Condition: Chronic kidney disease, unspecified (N18.9) ongoing, controlled. Abnormal levels of other serum enzymes (R74.8) resolved, stable. Aphasia (R47.01)-ongoing, stable. Altered mental status, unspecified (R41.82)- resolved, back to baseline. Unspecified fall, initial encounter (W19.XXXA) -resolved, fall risk continues. Acute myocardial infarction, unspecified (I21.9)-resolved, no other events. Medical management. - HPI History of Present Illness: Manjit Morin is a mentally challenged 71-year old with a past medical history of CVA, COPD, CAD, osteoarthritis, gout, CHF, HTN, hyperlipidemia, arrhythmias, and status post dialysis. Patient was found on the floor at the foot of his bed by sister, Camille who he lives with and is his primary career development manager. [facility] in the [facility] like [facility]. He started feeling better yesterday. Patient cannot recall the event and seemed more confused that baseline disability. A UA was collected and was noted to have a foul odor, positive with culture sent and pending. Troponin in the ED was elevated at 0.8, but may be due to CKD. INR was also elevated at 5.9, so coumadin was placed on hold. Patient will be admitted to hospitalist service for further cardiac work up. - CONSULTS | PROCEDURES Consultations: Cardiology via phone. - HOSPITAL COURSE Hospital Course: Patient was admitted after a fall. A chest and pelvis xray was completed and negative. A head and cervical spine CT was negative for bleeds, ischemia, infarcts or fractures. He had AMS upon arrival to the nursing floor and was in restraints for about 24 hours to protect himself and the staff and to facilitate the use of telemetry, and IVFs. He was weak at first, but soon regained his strength at nearly baseline ambulation at the time of discharge. Primary cardiology service in [place] was called regarding new [place] findings, who suggested medical management and follow up as outpatient in the next few weeks. Due to his baseline kidney failure, he was not a candidate for cardiac stenting or imaging requiring contrast. He was treated for NSTEMI after finding a peak troponin level of 5.45, using Plavix, statin, and maintained on warfarin. Troponin slowly trended downward and was 0.16 at the time of discharge. His INR was supratheraputic upon admission at 7.5, coumadin was held , and titrated to keep INR between 2-3. His kidney disease was managed will with a creatinine max of 2.3 during his stay. Patient was discharged home with sister, who is his palliative care nurse practitioner in stable condition via private car. - ALLERGIES Allergies/Adverse Reactions: Allergies Allergy/AdvReac Type Severity Reaction Status Date / Time No Known Drug Allergies Allergy Unverified 01/10/14 14:31 - MEDICATIONS Home Medications: Ambulatory Orders Medication Instructions Recorded Confirmed Allopurinol 100 mg PO DAILY 10/18/16 04/19/17 Atorvastatin Calcium 20 mg PO DAILY 10/18/16 04/19/17 Budesonide/Formoterol Fumarate 2 puffs INH BID 10/18/16 04/19/17 [Symbicort 160-4.5 Mcg Inhaler] Risperidone [Risperdal] 1.5 mg PO QPM 10/18/16 04/19/17 hydrALAZINE [Apresoline] 25 mg PO TID 10/18/16 04/19/17 Albuterol 2.5 mg INH Q4H PRN 04/19/17 04/19/17 Calcium Carbonate [Tums (Calcium 500 mg PO BID #60 tablet 04/25/17 Carbonate 500mg)] Clopidogrel [Plavix] 75 mg PO DAILY #30 tablet 04/25/17 Erythromycin Base [Erythromycin 1 gm OP BID #1 oint...g. 04/25/17 Ophthalmic Ointment] Isosorbide Mononitrate ER [Imdur] 30 mg PO DAILY #30 tablet 04/25/17 Sevelamer [Renagel] 800 mg PO BIDWM #60 tablet 04/25/17 Warfarin [Coumadin] 5 mg PO QDWARFARIN #30 tablet 04/25/17 - PHYSICAL EXAM AT DISCHARGE General Appearance: positive: No acute distress, Alert Eyes Bilateral: positive: PERRL, Other (Now with thick drainage in left eye.) ENT: positive: ENT inspection nml, No signs of dehydration, Dry mucous membranes Neck: positive: Nml inspection, Thyroid nml, No JVD Respiratory: positive: Chest non-tender, No respiratory distress, Breath sounds nml Cardiovascular: positive: No gallop, Irregularly irregular, Bradycardia, Systolic murmur Peripheral Pulses: positive: 2+ Abdomen: positive: Non-tender, No organomegaly, Nml bowel sounds, No distention Back: positive: Nml inspection Skin: positive: Color nml, No rash, Warm, Dry Extremities: positive: Non-tender, Full ROM, Pedal edema (chronic, dependent edema.) Neurologic/Psychiatric: positive: Disoriented to place, Disoriented to time, Weakness, Sensory loss, Other (baseline deficits.) Reflexes: Bicep (R): 2+, Bicep (L): 2+ - LABS Result Diagrams: 04/24/17 05:00 04/25/17 04:45 - DIAGNOSTIC IMAGING Diagnostic Imaging Results: Final report reviewed Diagnostic Imaging Results Comments: Chest x-ray: 04/19/17 FINDINGS: Lungs/Pleura: Pulmonary vascularity increased. No focal opacities evident. No pleural effusion. No pneumothorax. Mediastinum: Stable cardiomegaly Other: Old left rib fracture IMPRESSION: 1. Stable cardiomegaly. 2. Mild pulmonary venous congestion. Pelvis 1 view 04/19/17: FINDINGS: Bones: Osteopenia is present. Possible old bilateral inferior ramus fractures Joints: Mild bilateral hip joint space narrowing. Soft Tissues: Normal. No soft tissue swelling. IMPRESSION: Osteopenia. No acute fracture on x-ray imaging. Note: Osteopenia can limit detection of trabecular fracture. If the patient cannot ambulate, recommend MRI hip to exclude occult fracture. Head CT: FINDINGS: Parenchyma: No intraparenchymal hemorrhage. Old bilateral parietal occipital infarcts. Old bilateral basal ganglia, infarcts No evidence of mass, midline shift, or CT findings of acute infarction. Benson-white differentiation is distinct. Moderate supratentorial periventricular white matter changes Extraaxial Spaces: Normal for age. No subdural or epidural collections identified. Ventricles: Normal in size and position. Sinuses and Orbits: Imaged paranasal sinuses, orbits, and mastoids show no significant abnormality. Bones: No evidence of fracture or calvarial defect. Other: None. IMPRESSION: 1. No acute bleeds, no acute infarcts. 2. Chronic infarcts bilateral parietal occipital lobes and bilateral basal ganglia. 3. Moderate supratentorial periventricular white matter changes Cervical spine 04/19/17: FINDINGS: Alignment: No scoliosis or spondylolisthesis. Bones: No fracture or bone lesion. Interspace Levels/Facets: C1-C2: Unremarkable. C2-C3: Unremarkable. C3-C4: LEFT facet arthropathy C4-C5: Osteophyte C5-C6: Osteophyte, disk space narrowing C6-C7: Osteophyte C7-T1: Unremarkable. Musculature: Normal. No fatty atrophy. Other: Mild to moderate carotid calcifications. 1.6 cm left thyroid density The paravertebral and prevertebral soft tissues are unremarkable. The lung apices are clear. IMPRESSION: 1. Mild DJD 2. 1.6 cm left thyroid density could be further evaluated with ultrasound - FOLLOW UP Follow Up: Manjit suffered a heart attack that did not affect his heart function according to an echocardiogram completed here. His primary shoe salesman was called for recommendations as to treatment. Medical management was advised. So a few new medications will be on his discharge list. See your primary shoe salesman in the next few weeks as recommended via phone conversation. Please see your PCP in the next 3-5 days as a follow up to this hospital stay. Please take all of your medications as prescribed. - TIME SPENT Time Spent in Discharge (Minutes): 60"
[2017-04-25] MEDS: ALLOPURINOL 100 MG TABLET PO SCH (09:30)
[2017-04-25] MEDS: POLYETHYLENE GLYCOL 3350 17 GM PACKET PO SCH (09:30)
[2017-04-25] MEDS: SEVELAMER 800 MG TABLET PO SCH ×2 (09:30→12:25)
[2017-04-25] MEDS: CALCIUM CARBONATE CHEW 500 MG TABLET PO SCH ×2 (09:31→12:25)
[2017-04-25] MEDS: CLOPIDOGREL 75 MG TABLET PO SCH (09:31)
[2017-04-25] MEDS: ASPIRIN CHEW 81 MG TABLET PO SCH (09:31)
[2017-04-25] MEDS: ISOSORBIDE MONONITRATE ER 30 MG TABLET PO SCH (09:31)
--- NOTE | 2017-04-25 11:48 | Discharge Plan ---
Discharge Plan Disposition: Home, Self Care Condition: Good Prescriptions: Calcium Carbonate [Tums (Calcium Carbonate 500mg)] 500 mg PO BID #60 tablet Clopidogrel [Plavix] 75 mg PO DAILY #30 tablet Erythromycin Base [Erythromycin Ophthalmic Ointment] 1 gm OP BID #1 oint...g. Isosorbide Mononitrate ER [Imdur] 30 mg PO DAILY #30 tablet Sevelamer [Renagel] 800 mg PO BIDWM #60 tablet Diet: Cardiac Activity Restrictions: No Restrictions Shower Restrictions: No Driving Restrictions: No Assistance Devices: Walker Weight Bearing: Full Weight Additional Instructions or Follow Up instructions: Manjit suffered a heart attack that did not affect his heart function according to an echocardiogram completed here. His primary android architect was called for recommendations as to treatment. Medical management was advised. So a few new medications will be on his discharge list. See your primary android architect in the next few weeks as recommended via phone conversation. Please see your PCP in the next 3-5 days as a follow up to this hospital stay. Please take all of your medications as prescribed. Follow-Up Care: Home Health - PT, Home Health - OT No Smoking: If you smoke, Please STOP! Call for help. Follow-up with: Suzanna Frey, PHARMD [Primary Care Provider] -
[2017-04-25 12:15] VITALS: BP 177/54
== END 2017-04-25 12:57 | disposition home or self-care (01) | DRG 281 ==
LOC: EDUNIT# → ED 09:25 → MS2 11:13
PROVIDERS: ADMIT Nurse Practitioner; ATTEND Nurse Practitioner
DX: R41.0 Disorientation, unspecified (principal); I21.4 Non-ST elevation (NSTEMI) myocardial infarction; R47.01 Aphasia; I13.0 Hypertensive heart and chronic kidney disease with heart failure and stage 1 through stage 4 chronic kidney disease, or unspecified chronic kidney disease; N18.3 Chronic kidney disease, stage 3 (moderate); I25.10 Atherosclerotic heart disease of native coronary artery without angina pectoris; F79 Unspecified intellectual disabilities; I25.2 Old myocardial infarction; S06.9X9S Unspecified intracranial injury with loss of consciousness of unspecified duration, sequela; H10.023 Other mucopurulent conjunctivitis, bilateral; J44.9 Chronic obstructive pulmonary disease, unspecified; M19.90 Unspecified osteoarthritis, unspecified site; Z87.891 Personal history of nicotine dependence; M10.9 Gout, unspecified; I50.9 Heart failure, unspecified; E78.5 Hyperlipidemia, unspecified; I49.9 Cardiac arrhythmia, unspecified; W19.XXXA Unspecified fall, initial encounter; Y92.003 Bedroom of unspecified non-institutional (private) residence as the place of occurrence of the external cause; Z66 Do not resuscitate; Z86.73 Personal history of transient ischemic attack (TIA), and cerebral infarction without residual deficits; Z79.01 Long term (current) use of anticoagulants; Z98.62 Peripheral vascular angioplasty status; Z91.81 History of falling; Z78.1 Physical restraint status
CPT/HCPCS: 36415; 51701; 70450; 71010; 72125; 72170; 80048; 80053; 80076; 81001; 81003; 83605; 83735; 83880; 84100; 84484; 85025; 85520; 85610; 87040; 87086; 93005; 93306; 94640; 99284; 99285

== ENCOUNTER 2017-04-27 10:57 | Outpatient (CLI) | payer MEDICARE | END 2017-04-27 10:58 | disposition home or self-care (01) | LOC: LAB.F 10:57 | PROVIDERS: ATTEND Pharmacist | DX: I82.409 Acute embolism and thrombosis of unspecified deep veins of unspecified lower extremity (principal); I48.92 Unspecified atrial flutter | CPT/HCPCS: 85610 ==

== ENCOUNTER 2017-05-08 09:43 | Outpatient (CLI) | payer MEDICARE | END 2017-05-08 09:44 | disposition home or self-care (01) | LOC: LAB.F 09:43 | PROVIDERS: ATTEND Pharmacist | DX: I82.409 Acute embolism and thrombosis of unspecified deep veins of unspecified lower extremity (principal); I48.92 Unspecified atrial flutter | CPT/HCPCS: 85610 ==

== ENCOUNTER 2017-05-12 10:01 | Outpatient (CLI) | payer MEDICARE, MEDICAID | END 2017-05-12 10:02 | disposition home or self-care (01) | LOC: LAB.F 10:01 | PROVIDERS: ATTEND Pharmacist | DX: I82.409 Acute embolism and thrombosis of unspecified deep veins of unspecified lower extremity (principal); I48.92 Unspecified atrial flutter | CPT/HCPCS: 85610 ==

== ENCOUNTER 2017-05-28 23:35 | Outpatient (CLI) | payer MEDICARE, MEDICAID | END 2017-05-28 23:36 | disposition critical access hospital (66) | LOC: EMS 23:35 | PROVIDERS: ATTEND Surgery | DX: R41.0 Disorientation, unspecified (principal); R53.1 Weakness; R61 Generalized hyperhidrosis | CPT/HCPCS: A0425; A0427 ==

== ENCOUNTER 2017-05-29 | Inpatient (IN) | payer MEDICARE, MEDICAID ==
[2017-05-29] MEDS ORDERED: SODIUM CHLORIDE 0.9% 500 ML IV ONE (00:36)
[2017-05-29 00:46] LABS: BASOPHILS % (AUTO) 0.2 %; EOSINOPHILS # (AUTO) 0.1 10^3/uL (0.0-0.7); EOSINOPHILS % (AUTO) 1.2 %; LYMPHOCYTES # (AUTO) 0.5 10^3/uL (1.5-3.5); LYMPHOCYTES % (AUTO) 5.3 %; MEAN CORPUSCULAR HEMOGLOBIN 31.8 pg (27.0-31.0); MEAN CORPUSCULAR HGB CONC 34.4 g/dL (32.0-36.0); MEAN CORPUSCULAR VOLUME 92.6 fL (80.0-94.0); MEAN PLATELET VOLUME 7.8 fL (7.4-11.4); MONOCYTES % (AUTO) 11.6 %; NEUTROPHILS # (AUTO) 7.4 10^3/uL (1.5-6.6); NEUTROPHILS % (AUTO) 81.7 %; PLT - PLATELET COUNT 130 10^3/uL (130-450); RED BLOOD COUNT 3.77 10^6/uL (4.70-6.10); RED CELL DISTRIBUTION WIDTH 13.1 % (12.0-15.0)
[2017-05-29 00:51] LABS: PT - PROTHROMBIN TIME 22.5 secs (9.9-12.6)
[2017-05-29 00:59] LABS: ACETAMINOPHEN < 10 ug/mL (10-30); ALBUMIN 3.5 g/dL (3.2-5.5); ALBUMIN/GLOBULIN RATIO 1.1 (1.0-2.2); ALKALINE PHOSPHATASE 75 IU/L (42-121); ALT ALANINE AMINOTRANSFERASE 21 IU/L (10-60); AST ASPARTATE AMINOTRANSFERASE 28 IU/L (10-42); BILIRUBIN,TOTAL 0.9 mg/dL (0.2-1.0); BUN - BLOOD UREA NITROGEN 29 mg/dL (6-20); CALCIUM 10.3 mg/dL (8.5-10.3); CARBON DIOXIDE - CO2 23 mmol/L (21-32); CHLORIDE 97 mmol/L (101-111); CREATININE 2.5 mg/dL (0.6-1.2); GFR - MDRD 25 (>89); GLUCOSE 129 mg/dL (70-100); LIPASE 105 U/L (22-51); SALICYLATE < 6.0 mg/dL; SODIUM 134 mmol/L (135-145); TOTAL PROTEIN 6.7 g/dL (6.7-8.2)
[2017-05-29 01:05] LABS: MUDS CUTOFF CONCENTRATIONS CUTOFF CONC BELOW:
[2017-05-29 01:11] LABS: BILIRUBIN,URINE NEGATIVE (NEGATIVE); GLUCOSE, URINE (UA) NEGATIVE (NEGATIVE); KETONES,URINE (UA) NEGATIVE (NEGATIVE); LEUKOCYTE ESTERASE, URINE NEGATIVE (NEGATIVE); NITRITE,URINE NEGATIVE (NEGATIVE); OCCULT BLOOD,URINE NEGATIVE (NEGATIVE); PROTEIN,URINE >=300 mg/dL (NEGATIVE); UROBILINOGEN,URINE 0.2 (NORMAL) E.U./dL (NORMAL)
[2017-05-29 01:20] LABS: AMORPHOUS SEDIMENT,UR Few /LPF; BACTERIA,URINE Rare /HPF (None Seen); CLARITY,URINE CLEAR (CLEAR); RBC,URINE 0-5 /HPF (0-5); SQUAMOUS EPITHELIAL CELL,UR RARE Squamous (<= Few)
[2017-05-29 01:21] LABS: AMPHETAMINE SCREEN,URINE NEGATIVE (NEGATIVE); BENZODIAZEPINES SCREEN, URINE NEGATIVE (NEGATIVE); COCAINE SCREEN URINE NEGATIVE (NEGATIVE); METHADONE SCREEN, URINE NEGATIVE (NEGATIVE); METHAMPHETAMINES SCREEN, URINE NEGATIVE (NEGATIVE); OPIATE SCREEN, URINE NEGATIVE (NEGATIVE); OXYCODONE SCREEN, URINE NEGATIVE (NEGATIVE); PROPOXYPHENE SCREEN, URINE NEGATIVE (NEGATIVE); TRICYCLIC ANTIDEPRESSANT,URINE NEGATIVE (NEGATIVE)
[2017-05-29] MEDS ORDERED: SODIUM CHLORIDE 0.9% 1,000 ML IV ONE (01:32)
--- NOTE | 2017-05-29 02:14 | ED Physician Documentation ---
PD HPI ALTERED MENTAL STATUS - Stated complaint Stated Complaint: DEC LOC - Chief complaint Chief Complaint: Neuro - History obtained from History obtained from: Patient, Family (sister), EMS - History of Present Illness Timing - duration: Days (3) Quality / character: Confused Associated symptoms: Cough, General weakness Contributing factors: Anticoagulated Basline status: Confused, Walker, Home - Additional information Additional information: The patient is a 72-year-old male with history of coronary artery disease, CHF, COPD, CVA, mental disability, and osteoarthritis, who presents via ambulance because of decreased mental status that has been progressing over the past 2 or 3 days. The patient is not able to provide reliable history, so most history is obtained from his sister with whom he lives. He has had cough increasing over the past 3 days, and has become too weak to ambulate with his walker. He is confused at baseline, but his sister states that he has been more confused than usual today. There is been no known fever, and the patient denies chest pain, headache, sore throat, or abdominal pain. He is incontinent of urine. Review of his medical record reveals hospitalization here in March 2017 with urinary tract infection. Review of Systems Constitutional: reports: Fatigue. denies: Fever Nose: denies: Congestion Throat: denies: Sore throat Cardiac: denies: Chest pain / pressure Respiratory: reports: Cough GI: denies: Abdominal Pain, Vomiting, Diarrhea : reports: Incontinent. denies: Dysuria Skin: denies: Rash Musculoskeletal: denies: Extremity swelling Neurologic: reports: Generalized weakness, Confused. denies: Focal weakness, Numbness, Headache PD PAST MEDICAL HISTORY - Past Medical History Cardiovascular: Congestive heart failure, Hypertension, High cholesterol, Coronary artery disease, MA, Arrhythmia Respiratory: COPD Neuro: CVA, Head injury, Other Endocrine/Autoimmune: None GI: None : Dialysis, Frequency HEENT: None Psych: Other Musculoskeletal: Osteoarthritis, Gout Derm: None - Past Surgical History Past Surgical History: Yes General: Appendectomy, Other Cardiovascular: Cardiac catheterization, Angioplasty Neuro: Other - Present Medications Home Medications: Ambulatory Orders Medication Instructions Recorded Confirmed Allopurinol 100 mg PO DAILY 10/18/16 05/29/17 Atorvastatin Calcium 20 mg PO DAILY 10/18/16 05/29/17 Risperidone [Risperdal] 1.5 mg PO QPM 10/18/16 05/29/17 Clopidogrel [Plavix] 75 mg PO DAILY #30 tablet 04/25/17 05/29/17 Isosorbide Mononitrate ER [Imdur] 30 mg PO DAILY #30 tablet 04/25/17 05/29/17 Sevelamer [Renagel] 800 mg PO BIDWM #60 tablet 04/25/17 05/29/17 Warfarin [Coumadin] 5 mg PO QDWARFARIN #30 tablet 04/25/17 05/29/17 Budesonide/Formoterol Fumarate 1 puffs INH DAILY 05/29/17 05/29/17 [Symbicort 160-4.5 Mcg Inhaler] Metoprolol Succinate 15 mg PO DAILY 05/29/17 05/29/17 amLODIPine [Norvasc] 10 mg PO DAILY 05/29/17 05/29/17 - Allergies Allergies/Adverse Reactions: Allergies Allergy/AdvReac Type Severity Reaction Status Date / Time No Known Drug Allergies Allergy Unverified 05/29/17 00:24 - Living Situation Living Situation: reports: With family Living Arrangement: reports: At home - Social History Does the pt smoke?: No Smoking Status: Former smoker (Quit one year ago.) Does the pt drink ETOH?: No Does the pt have substance abuse?: No - Immunizations Immunizations are current?: Yes - POLST Patient has POLST: Yes POLST Status: DNR PD ED PE NORMAL - Vitals Vital signs reviewed: Yes (pulse ox initially low at 91 % on room air.) - General General: Other (Alert but confused.) - HEENT HEENT: Atraumatic, EOMI, Moist mucous membranes, Pharynx benign - Neck Neck: Supple, no meningeal sign, No adenopathy, No JVD - Cardiac Cardiac: RRR, No murmur (1/6 systolic murmur.) - Respiratory Respiratory: Other (Crackles bilaterally.) - Abdomen Abdomen: Soft, Non tender, Other (rotund abdomen) - Back Back: No CVA TTP - Derm Derm: Normal color, No rash - Extremities Extremities: No edema, No calf tenderness / cord - Neuro Neuro: No motor deficit, No sensory deficit, Other (Alert, but confused.) Eye Opening: Spontaneous Motor: Obeys Commands Verbal: Confused GCS Score: 14 Results - Vitals Vitals: Vital Signs - 24 hr 0105/29/17 05/29/17 00:02 00:43 01:46 Temperature 37.1 C Heart Rate 86 74 64 Respiratory 20 23 20 Rate Blood Pressure 117/70 130/64 162/57 H O2 Saturation 91 L 96 97 05/29/17 05/29/17 05/29/17 02:30 03:00 03:56 Temperature Heart Rate 64 62 69 Respiratory 15 15 15 Rate Blood Pressure 140/48 H 146/40 H 164/63 H O2 Saturation 96 96 95 05/29/17 05/29/17 05/29/17 04:48 05:38 06:30 Temperature Heart Rate 66 63 60 Respiratory 18 20 20 Rate Blood Pressure 133/58 H 151/50 H 160/54 H O2 Saturation 93 96 94 05/29/17 09:08 Temperature Heart Rate 65 Respiratory 12 Rate Blood Pressure 138/54 H O2 Saturation 94 Oxygen O2 Source [] Room air O2 Source Room air - EKG (time done) 00:13 Rate: Rate (enter#) (80) Rhythm: NSR, LAE Intervals: RBBB Compare to prior EKG: Unchanged from prior EKG Computer interpretation: Agree with computer - Labs Labs: Laboratory Tests 05/29/17 05/29/17 05/29/17 00:39 00:39 00:39 WBC 9.0 RBC 3.77 L Hgb 12.0 L Hct 35.0 L MCV 92.6 MCH 31.8 H MCHC 34.4 RDW 13.1 Plt Count 130 MPV 7.8 Neut # 7.4 H Lymph # 0.5 L Scurry # 1.0 Eos # 0.1 Baso # 0.0 Absolute Nucleated RBC 0.00 Nucleated RBC % 0.0 PT 22.5 H INR 2.0 H Sodium 134 L Potassium 4.4 Chloride 97 L Carbon Dioxide 23 Anion Gap 14.0 H BUN 29 H Creatinine 2.5 H Estimated GFR (MDRD) 25 L Glucose 129 H Lactic Acid Calcium 10.3 Total Bilirubin 0.9 AST 28 ALT 21 Alkaline Phosphatase 75 Troponin I Total Protein 6.7 Albumin 3.5 Globulin 3.2 Albumin/Globulin Ratio 1.1 Lipase 105 H Urine Color Urine Clarity Urine pH Ur Specific [place] Urine Protein Urine Glucose (UA) Urine Ketones Urine Occult Blood Urine Nitrite Urine Bilirubin Urine Urobilinogen Ur Leukocyte Esterase Urine RBC Urine WBC Ur Squamous Epith Cells Amorphous Sediment Urine Bacteria Ur Microscopic Review Urine Culture Comments Salicylates < 6.0 Urine Opiates Screen Ur Oxycodone Screen Urine Methadone Screen Ur Propoxyphene Screen Acetaminophen < 10 L Ur Barbiturates Screen Ur Tricyclics Screen Ur Phencyclidine Scrn Ur Amphetamine Screen U Methamphetamines Scrn U Benzodiazepines Scrn Urine Cocaine Screen U Cannabinoids Screen Ethyl Alcohol < 5.0 05/29/17 05/29/17 05/29/17 00:39 00:39 00:55 WBC RBC Hgb Hct MCV MCH MCHC RDW Plt Count MPV Neut # Lymph # Scurry # Eos # Baso # Absolute Nucleated RBC Nucleated RBC % PT INR Sodium Potassium Chloride Carbon Dioxide Anion Gap BUN Creatinine Estimated GFR (MDRD) Glucose Lactic Acid 1.3 Calcium Total Bilirubin AST ALT Alkaline Phosphatase Troponin I 0.05 Total Protein Albumin Globulin Albumin/Globulin Ratio Lipase Urine Color YELLOW Urine Clarity CLEAR Urine pH 6.0 Ur Specific [place] 1.025 Urine Protein >=300 Urine Glucose (UA) NEGATIVE Urine Ketones NEGATIVE Urine Occult Blood NEGATIVE Urine Nitrite NEGATIVE Urine Bilirubin NEGATIVE Urine Urobilinogen 0.2 (NORMAL) Ur Leukocyte Esterase NEGATIVE Urine RBC 0-5 Urine WBC 0-3 Ur Squamous Epith Cells RARE Squamous Amorphous Sediment Few Urine Bacteria Rare Ur Microscopic Review INDICATED Urine Culture Comments NOT INDICATED Salicylates Urine Opiates Screen NEGATIVE Ur Oxycodone Screen NEGATIVE Urine Methadone Screen NEGATIVE Ur Propoxyphene Screen NEGATIVE Acetaminophen Ur Barbiturates Screen NEGATIVE Ur Tricyclics Screen NEGATIVE Ur Phencyclidine Scrn NEGATIVE Ur Amphetamine Screen NEGATIVE U Methamphetamines Scrn NEGATIVE U Benzodiazepines Scrn NEGATIVE Urine Cocaine Screen NEGATIVE U Cannabinoids Screen NEGATIVE Ethyl Alcohol - Rads (name of study) 2-view CXR Radiology: Prelim report reviewed, EMP read contemporaneously, See rad report ( Bilateral pulmonary opacities, with blunting of the left hemidiaphragm and pulmonary vascular congestion, consistent with congestive heart failure, although pneumonia may also be present.) PD MEDICAL DECISION MAKING - ED course Complexity details: reviewed old records, reviewed results, re-evaluated patient , considered differential, d/w patient, d/w family, d/w wine consultant ED course: The patient's presentation is significant for pulmonary infiltrates which are likely caused by pneumonia, although there may be a congestive heart failure component. Clinically, the patient initially appeared volume depleted. He does not appear septic, although he does present with generalized weakness and mental confusion that is more than his baseline confusion. His lactate is normal at 1.3. In addition his labs reveal renal insufficiency with a creatinine of 2.5. Treatment in the emergency department included administration of normal saline 1.5 L IV, ceftriaxone 1 g IV, and azithromycin 500 mg IV. I discussed his condition with Dr. Bird who will admit him for further evaluation and treatment. Departure - Departure Disposition: 66 [facility] DC/Xfer Clinical Impression: Pneumonia Qualifiers: Pneumonia type: due to unspecified organism Laterality: right Lung location: upper lobe of lung Qualified Code(s): J18.1 - Lobar pneumonia, unspecified organism CKD (chronic kidney disease) Qualifiers: Chronic kidney disease stage: unspecified stage Qualified Code(s): N18.9 - Chronic kidney disease, unspecified Condition: Stable
[2017-05-29] MEDS ORDERED: AZITHROMYCIN INJ 500 MG in SODIUM CHLORIDE 0.9% 250 ML IV STA (08:20)
[2017-05-29] MEDS ORDERED: cefTRIAXone 1 GM in SODIUM CHLORIDE 0.9% MINIBAG 100 ML IV STA (08:20)
--- NOTE | 2017-05-29 08:24 | XRAY Report ---
EXAM: CHEST RADIOGRAPHY EXAM DATE: 05/29/2017 07:01 AM. CLINICAL HISTORY: Cough with crackles on left. COMPARISON: Chest radiograph dated 04/19/2017. TECHNIQUE: 2 views. FINDINGS: Lungs/Pleura: Irregular opacities in the left lung base. There is silhouetting of the left hemidiaphr agm. Mediastinum: Heart is enlarged. Pulmonary vasculature is centrally engorged and indistinct. Other: None. IMPRESSION: 1. Cardiomegaly with central pulmonary vascular congestion which can be seen in the setting of CHF ex acerbation. 2. Irregular opacities in the left lung base can be seen in the setting of pulmonary edema; however, superimposed infectious process cannot be excluded. [facility] Referring Provider Line: [phone] SITE ID: [id number]
--- NOTE | 2017-05-29 08:24 | XRAY Preliminary Report ---
Exam: XR CHEST 2 VIEW X-RAY IMPRESSION: 1. Cardiomegaly with central pulmonary vascular congestion which can be seen in the setting of CHF ex acerbation. 2. Irregular opacities in the left lung base can be seen in the setting of pulmonary edema; however, superimposed infectious process cannot be excluded. [facility] SITE ID: [id number]
[2017-05-29] MEDS ORDERED: SODIUM CHLORIDE FLUSH 0.9% 10 ML SYRINGE IVP PRN (08:37)
[2017-05-29] MEDS ORDERED: ACETAMINOPHEN 325 MG TABLET PO PRN (08:42)
[2017-05-29] MEDS ORDERED: oxyCODONE 5 MG TABLET PO PRN (08:42)
[2017-05-29] MEDS ORDERED: PROMETHAZINE 25 MG/1 ML VIAL IM PRN (08:42)
[2017-05-29] MEDS ORDERED: ONDANSETRON 4 MG/2 ML VIAL IVP PRN (08:42)
[2017-05-29] MEDS ORDERED: PROCHLORPERAZINE 10 MG/2 ML VIAL IVP PRN (08:42)
[2017-05-29] MEDS ORDERED: SEVELAMER 800 MG TABLET PO SCH (10:00)
[2017-05-29] MEDS: amLODIPine 5 MG TABLET PO SCH (11:33)
[2017-05-29] MEDS: FAMOTIDINE 20 MG TABLET PO SCH (11:33)
[2017-05-29] MEDS: SEVELAMER 800 MG TABLET PO SCH ×2 (11:33→16:33)
[2017-05-29] MEDS: ALLOPURINOL 100 MG TABLET PO SCH (11:33)
[2017-05-29] MEDS: CLOPIDOGREL 75 MG TABLET PO SCH (11:33)
[2017-05-29] MEDS: ISOSORBIDE MONONITRATE ER 30 MG TABLET PO SCH (11:33)
[2017-05-29] MEDS: SODIUM CHLORIDE 0.9% 1,000 ML IV SCH ×2 (11:34→20:30)
[2017-05-29] MEDS: PIPERACILLIN/TAZOBACTAM 3.375 GM in SODIUM CHLORIDE 0.9% MINIBAG 100 ML IV SCH ×2 (11:50→18:43)
[2017-05-29] MEDS: SODIUM CHLORIDE FLUSH 0.9% 10 ML SYRINGE IVP SCH ×2 (11:51→20:28)
[2017-05-29] MEDS: METOPROLOL SUCCINATE 25 MG TABLET PO SCH (12:34)
[2017-05-29] MEDS: WARFARIN 5 MG TABLET PO SCH (14:14)
[2017-05-29] MEDS: SACCHAROMYCES BOULARDII 250 MG CAPSULE PO SCH (16:24)
--- NOTE | 2017-05-29 17:19 | HISTORY & PHYSICAL EXAMINATION ---
Chief Complaint - Chief Complaint Chief Complaint: Lethargy and generalized weakness History of Present Illness - Admitted From Admitted From:: Emergency department - History Obtained From Records Reviewed: Yes History obtained from: Patient's sister and medical records Exam Limitations: Patient lethargic and unable to provide history - History of Present Illness HPI Comment/Other: Patient is a 72-year-old gentleman with an extensive past medical history including congestive heart failure, hypertension, hyperlipidemia, coronary artery disease, CKD with history of requiring dialysis currently not on dialysis , COPD, osteoarthritis, gout, arrhythmia and CVA on Coumadin who presented to the emergency department secondary to lethargy and generalized weakness. The patient was unable to provide history secondary to being lethargic. The patient 's history was provided by the patient's sister and medical records. According to the patient's sister the patient has been having decreased cognition and increased lethargy that has been progressing over the last 2-3 days. She also states that she has noted that he has had an increasing cough over the past 2-3 days as well. She states that he has become too weak to ambulate with his walker which is his baseline. She states that he does have some degree of confusion at baseline but this is significantly worse and today the patient is lethargic and not interacting at all. The patient has had no known fevers at home he has not been complaining of any chest pain, headaches, sore throat, or abdominal pain. The patient's sister has not noted him having had any diarrhea or vomiting. The patient is incontinent of urine. The patient did have a recent hospitalization in March 2017 for altered mental status at that time the patient was found to have a urinary tract infection and also had a complicated course with a non-ST elevation NE which was treated medically. The patient was not able to provide any further review of systems. On presentation to the emergency department the patient was afebrile and his vital signs were within normal limits aside from his O2 saturation which was in the low 90s. The patient underwent routine lab work which revealed a mild left shift with no significant leukocytosis. The patient did appear to be slightly dehydrated and his creatinine was elevated to 2.5 and his sodium was slightly low. Patient had a normal lactic acid. The patient's UA was negative. The patient had negative U tox. The patient's influenza was also negative. The patient did undergo a chest x-ray the chest x-ray revealed that the patient had irregular opacities in the left lung base that were concerning for infection. Given the patient's recent cough, lethargy and increased generalized weakness the patient findings on chest x-ray were thought to be secondary to a healthcare associated pneumonia therefore the patient was admitted to the hospital for treatment with IV antibiotics, IV fluids and for physical therapy. History - Past Medical History Cardiovascular: reports: Congestive heart failure, Hypertension, High cholesterol, Coronary artery disease, [place], Arrhythmia Respiratory: reports: COPD Neuro: reports: CVA, Head injury, Other Endocrine/Autoimmune: reports: None GI: reports: None : reports: Frequency, Other HEENT: reports: None Psych: reports: Other Musculoskeletal: reports: Osteoarthritis, Gout Derm: reports: None MRSA Hx?: No Other Past Medical History: Previous short term dialysis - Past Surgical History General: reports: Appendectomy, Other Cardiovascular: reports: Cardiac catheterization, Angioplasty Neuro: reports: Other - Family & Social History Family History: Mother: , [place], Father: , Brother: Living arrangement: At home Living Situation: With family Social History Notes: Patient lives with his caregiver who is his sister. The patient does not smoke, drink alcohol or use any illicit drugs. - Substance History Use: Uses substance without health or social issues: NONE - POLST Patient has POLST: Yes POLST Status: DNR Meds/Allgy - Home Medications Home Medications: Ambulatory Orders Medication Instructions Recorded Confirmed Allopurinol 100 mg PO DAILY 10/18/16 05/29/17 Atorvastatin Calcium 20 mg PO DAILY 10/18/16 05/29/17 Risperidone [Risperdal] 1.5 mg PO QPM 10/18/16 05/29/17 Clopidogrel [Plavix] 75 mg PO DAILY #30 tablet 04/25/17 05/29/17 Isosorbide Mononitrate ER [Imdur] 30 mg PO DAILY #30 tablet 04/25/17 05/29/17 Warfarin [Coumadin] 5 mg PO QDWARFARIN #30 tablet 04/25/17 05/29/17 Albuterol 2.5 mg INH DAILY PRN 05/29/17 05/29/17 Budesonide/Formoterol Fumarate 1 puffs INH BID 05/29/17 05/29/17 [Symbicort 160-4.5 Mcg Inhaler] Calcium Carbonate [Tums (Calcium 1,500 mg PO TIDWM 05/29/17 05/29/17 Carbonate 500mg)] Metoprolol Succinate 12.5 mg PO DAILY 05/29/17 05/29/17 Sevelamer [Renagel] 2,400 mg PO TIDWM 05/29/17 05/29/17 Warfarin Sodium [Coumadin] 3 mg PO SUMOWEFR 05/29/17 05/29/17 Warfarin Sodium [Coumadin] 6 mg PO TUTHSA 05/29/17 05/29/17 amLODIPine [Norvasc] 10 mg PO DAILY 05/29/17 05/29/17 - Allergies Allergies/Adverse Reactions: Allergies Allergy/AdvReac Type Severity Reaction Status Date / Time No Known Drug Allergies Allergy Unverified 05/29/17 00:24 Review of Systems - Other Findings Other Findings: Patient is unable to provide a review of systems secondary to lethargy. Exam - Vital Signs Reviewed Vital Signs: Yes Vital Signs: Vital Signs x48h Temp Pulse Pulse Resp BP Pulse Ox 05/29/17 15:40 36.7 C 52 L 20 148/42 H 95 05/29/17 12:00 66 22 05/29/17 11:10 37.2 C 65 18 165/37 H 97 - Physical Exam General Appearance: positive: Lethargic Eyes Bilateral: positive: Normal inspection, PERRL, EOMI, No lid inflammation, Conjunctivae nml, No scleral icterus ENT: positive: ENT inspection nml, Pharynx nml, Dry mucous membranes. negative : Purulent nasal drainage, Pharyngeal erythema, Oral lesions Neck: positive: Nml inspection, Thyroid nml, No JVD, Trachea midline. negative : Thyromegaly, Lymphadenopathy (R), Lymphadenopathy (L), Stiff neck, Carotid bruit, Tracheal deviation Respiratory: positive: Chest non-tender, Rhonchi (Left lower lobe). negative: Wheezes, Rales Cardiovascular: positive: Regular rate & rhythm, No murmur, No gallop Peripheral Pulses: positive: 2+ Abdomen: positive: Non-tender, No organomegaly, Nml bowel sounds, No distention. negative: Guarding, Rebound, Hepatomegaly Back: positive: Nml inspection. negative: CVA tenderness (R), CVA tenderness (L ) Skin: positive: Color nml, No rash, Warm. negative: Cyanosis, Diaphoresis, Pallor Extremities: positive: Non-tender, Full ROM, Nml appearance, No pedal edema Neurologic/Psychiatric: positive: Sensation nml, Weakness (Generalized), Other ( Very lethargic) Conclusion/Plan - Problem List (1) HCAP (healthcare-associated pneumonia) Conclusion/Plan: Patient presented with lethargy and generalized weakness. The patient was found to be borderline hypoxic on presentation and has been having cough for several days. The patient's chest x-ray did show left-sided infiltrate. The patient did have rhonchi on examination. He was determined to clinically have a pneumonia. The patient was hospitalized for greater than 2 days in March therefore he has healthcare associated pneumonia by definition. Plan: Patient will be treated with IV Levaquin and Zosyn for healthcare associated pneumonia Patient will be given oxygen as needed Patient will be given IV fluids as he appears to be dehydrated and has acute on chronic renal failure. Patient will need physical therapy for generalized weakness We will monitor patient closely (2) Acute on chronic renal failure Conclusion/Plan: Patient has acute on chronic renal failure as creatinine is 2.5 on presentation increased from baseline of 1.9 after recent discharge. Patient also has slightly elevated BUN and hyponatremia and appears quite dry on examination. Given his presentation this looks to be acute renal failure secondary to prerenal azotemia likely secondary to infection and dehydration. Plan: Patient will be given IV fluids We will monitor creatinine We will avoid any nephrotoxic agents Qualifiers: Acute renal failure type: unspecified Chronic kidney disease stage: stage 3 (moderate) Qualified Code(s): N17.9 - Acute kidney failure, unspecified; N18.3 - Chronic kidney disease, stage 3 (moderate); N18.3 - Chronic kidney disease, stage 3 (moderate) (3) Metabolic encephalopathy Conclusion/Plan: The patient has altered mental status on presentation with lethargy. This is been ongoing for the last several days and appears to be secondary to infection likely due to his healthcare associated pneumonia in combination with dehydration. Plan: Patient will be treated as above for dehydration with IV fluids and for healthcare associated pneumonia with IV antibiotics We suspect the patient's mentation will improve Patient at baseline does have some confusion due to history of CVA and dementia. We will hold any of the patient's sedatives and antipsychotic medications in the setting of lethargy. (4) Generalized weakness Conclusion/Plan: The patient has generalized weakness and at baseline is able to walk with his walker but due to recent infection and dehydration appears to be unable to ambulate and use his walker at all. We will treat the patient as above with IV antibiotics and IV fluids in hopes that he will improve. PT will see the patient and patient may need placement if he continues to be this weak. (5) COPD (chronic obstructive pulmonary disease) Conclusion/Plan: The patient has history of COPD but is not on any home oxygen. The patient does present with pneumonia but does not appear to have a COPD exacerbation at this time. The patient will be continued on duo nebs as needed but will not be placed on any steroids. We will give the patient supplemental oxygen as needed per Qualifiers: COPD type: COPD with acute lower respiratory infection Qualified Code(s): J44.0 - Chronic obstructive pulmonary disease with acute lower respiratory infection (6) Hypertension Conclusion/Plan: The patient has history of hypertension and blood pressure is elevated on presentation. The patient will be continued on his home medication of metoprolol and amlodipine for his hypertension. Qualifiers: Hypertension type: essential hypertension Qualified Code(s): I10 - Essential (primary) hypertension (7) CAD (coronary artery disease) Conclusion/Plan: The patient has history of coronary artery disease and had a recent non-ST elevation NE on admission in March. The patient is being medically treated for this non-ST elevation NE. Currently the patient is on Plavix, Lipitor and metoprolol. The patient will be continued on these medications while he is hospitalized. The patient's troponin is 0.04 and he does not appear to have any changes on his EKG to suggest a new NE. Patient appears to be stable at this time Qualifiers: Coronary Disease-Associated Artery/Lesion type: [place] artery [place] vs. transplanted heart: [place] heart Associated angina: without angina Qualified Code(s): I25.10 - Atherosclerotic heart disease of [place] coronary artery without angina pectoris (8) Arrhythmia Conclusion/Plan: The patient has history of arrhythmia and is on Coumadin. It is not clear if the patient has atrial fibrillation or atrial flutter I could not find any EKGs where he did have history of A. fib or a flutter. The patient is therapeutic on his Coumadin. We will continue Coumadin for now and monitor the patient on telemetry to see if he does have any arrhythmias. - Lab Results Lab results reviewed: Yes Fish Bones: 05/29/17 00:39 05/29/17 00:39 Other Lab Results: Laboratory Results WBC 9.0 x10^3/uL (4.8-10.8) 05/29/17 00:39 RBC 3.77 10^6/uL (4.70-6.10) L 05/29/17 00:39 Hgb 12.0 g/dL (14.0-18.0) L 05/29/17 00:39 Hct 35.0 % (42.0-52.0) L 05/29/17 00:39 MCV 92.6 fL (80.0-94.0) 05/29/17 00:39 MCH 31.8 pg (27.0-31.0) H 05/29/17 00:39 MCHC 34.4 g/dL (32.0-36.0) 05/29/17 00:39 RDW 13.1 % (12.0-15.0) 05/29/17 00:39 Plt Count 130 10^3/uL (130-450) 05/29/17 00:39 MPV 7.8 fL (7.4-11.4) 05/29/17 00:39 Neut # 7.4 10^3/uL (1.5-6.6) H 05/29/17 00:39 Lymph # 0.5 10^3/uL (1.5-3.5) L 05/29/17 00:39 [place] # 1.0 10^3/uL (0.0-1.0) 05/29/17 00:39 Eos # 0.1 10^3/uL (0.0-0.7) 05/29/17 00:39 Baso # 0.0 10^3/uL (0.0-0.1) 05/29/17 00:39 Absolute Nucleated RBC 0.00 x10^3/uL 05/29/17 00:39 Nucleated RBC % 0.0 /100WBC 05/29/17 00:39 PT 22.5 secs (9.9-12.6) H 05/29/17 00:39 INR 2.0 (0.8-1.2) H 05/29/17 00:39 Sodium 134 mmol/L (135-145) L 05/29/17 00:39 Potassium 4.4 mmol/L (3.5-5.0) 05/29/17 00:39 Chloride 97 mmol/L (101-111) L 05/29/17 00:39 Carbon Dioxide 23 mmol/L (21-32) 05/29/17 00:39 Anion Gap 14.0 (6-13) H 05/29/17 00:39 BUN 29 mg/dL (6-20) H 05/29/17 00:39 Creatinine 2.5 mg/dL (0.6-1.2) H 05/29/17 00:39 Estimated GFR (MDRD) 25 (>89) L 05/29/17 00:39 Glucose 129 mg/dL (70-100) H 05/29/17 00:39 Lactic Acid 1.3 mmol/L (0.5-2.2) 05/29/17 00:39 Calcium 10.3 mg/dL (8.5-10.3) 05/29/17 00:39 Total Bilirubin 0.9 mg/dL (0.2-1.0) 05/29/17 00:39 AST 28 IU/L (10-42) 05/29/17 00:39 ALT 21 IU/L (10-60) 05/29/17 00:39 Alkaline Phosphatase 75 IU/L (42-121) 05/29/17 00:39 Troponin I 0.05 ng/mL (<0.49) 05/29/17 00:39 B-Natriuretic Peptide 77 pg/mL (5-100) 05/29/17 00:45 Total Protein 6.7 g/dL (6.7-8.2) 05/29/17 00:39 Albumin 3.5 g/dL (3.2-5.5) 05/29/17 00:39 Globulin 3.2 g/dL (2.1-4.2) 05/29/17 00:39 Albumin/Globulin Ratio 1.1 (1.0-2.2) 05/29/17 00:39 Lipase 105 U/L (22-51) H 05/29/17 00:39 Urine Color YELLOW 05/29/17 00:55 Urine Clarity CLEAR (CLEAR) 05/29/17 00:55 Urine pH 6.0 PH (5.0-7.5) 05/29/17 00:55 Ur Specific [place] 1.025 (1.002-1.030) 05/29/17 00:55 Urine Protein >=300 mg/dL (NEGATIVE) 05/29/17 00:55 Urine Glucose (UA) NEGATIVE mg/dL (NEGATIVE) 05/29/17 00:55 Urine Ketones NEGATIVE mg/dL (NEGATIVE) 05/29/17 00:55 Urine Occult Blood NEGATIVE (NEGATIVE) 05/29/17 00:55 Urine Nitrite NEGATIVE (NEGATIVE) 05/29/17 00:55 Urine Bilirubin NEGATIVE (NEGATIVE) 05/29/17 00:55 Urine Urobilinogen 0.2 (NORMAL) E.U./dL (NORMAL) 05/29/17 00:55 Ur Leukocyte Esterase NEGATIVE (NEGATIVE) 05/29/17 00:55 Urine RBC 0-5 /HPF (0-5) 05/29/17 00:55 Urine WBC 0-3 /HPF (0-3) 05/29/17 00:55 Ur Squamous Epith Cells RARE Squamous (<= Few) 05/29/17 00:55 Amorphous Sediment Few /LPF 05/29/17 00:55 Urine Bacteria Rare /HPF (None Seen) 05/29/17 00:55 Ur Microscopic Review INDICATED 05/29/17 00:55 Urine Culture Comments NOT INDICATED 05/29/17 00:55 Salicylates < 6.0 mg/dL 05/29/17 00:39 Urine Opiates Screen NEGATIVE (NEGATIVE) 05/29/17 00:55 Ur Oxycodone Screen NEGATIVE (NEGATIVE) 05/29/17 00:55 Urine Methadone Screen NEGATIVE (NEGATIVE) 05/29/17 00:55 Ur Propoxyphene Screen NEGATIVE (NEGATIVE) 05/29/17 00:55 Acetaminophen < 10 ug/mL (10-30) L 05/29/17 00:39 Ur Barbiturates Screen NEGATIVE (NEGATIVE) 05/29/17 00:55 Ur Tricyclics Screen NEGATIVE (NEGATIVE) 05/29/17 00:55 Ur Phencyclidine Scrn NEGATIVE (NEGATIVE) 05/29/17 00:55 Ur Amphetamine Screen NEGATIVE (NEGATIVE) 05/29/17 00:55 U Methamphetamines Scrn NEGATIVE (NEGATIVE) 05/29/17 00:55 U Benzodiazepines Scrn NEGATIVE (NEGATIVE) 05/29/17 00:55 Urine Cocaine Screen NEGATIVE (NEGATIVE) 05/29/17 00:55 U Cannabinoids Screen NEGATIVE (NEGATIVE) 05/29/17 00:55 Ethyl Alcohol < 5.0 mg/dL 05/29/17 00:39 Influenza A (Rapid) Negative (Negative) 05/29/17 11:05 Influenza B (Rapid) Negative (Negative) 05/29/17 11:05 Influenza Types A,B Ag - 05/29/17 11:05 - Diagnostic Imaging Results Diagnostic Imaging Results: positive: Final report reviewed Diagnostic Imaging Results Comments: Chest x-ray Impression: 1. Cardiomegaly with central pulmonary vascular congestion which can be seen in the setting of CHF exacerbation. 2. Irregular opacities in the left lung can be seen in the setting of pulmonary edema; however, superimposed infectious process cannot be excluded. - EKG Results EKG Interpreted Independently: Yes EKG Comparison: Unchanged from prior EKG Core Measures - Anticipated LOS I expect patient to be DC'd or transferred within 96 hours.: Yes - DVT/VTE - Prophylaxis VTE/DVT Device ordered at admit?: Yes
[2017-05-29] MEDS: IPRATROPIUM/ALBUTEROL 3 ML NEB INH PRN (19:55)
[2017-05-29] MEDS: ATORVASTATIN 10 MG TABLET PO SCH (20:27)
[2017-05-29] MEDS: risperiDONE 1 MG TABLET PO SCH (20:28)
[2017-05-30] MEDS: PIPERACILLIN/TAZOBACTAM 3.375 GM in SODIUM CHLORIDE 0.9% MINIBAG 100 ML IV SCH ×5 (00:05→23:56)
[2017-05-30 05:02] LABS: BASOPHILS % (AUTO) 0.8 %; EOSINOPHILS # (AUTO) 0.3 10^3/uL (0.0-0.7); EOSINOPHILS % (AUTO) 6.4 %; HGB - HEMOGLOBIN 10.1 g/dL (14.0-18.0); LYMPHOCYTES # (AUTO) 0.6 10^3/uL (1.5-3.5); LYMPHOCYTES % (AUTO) 12.5 %; MEAN CORPUSCULAR HEMOGLOBIN 31.1 pg (27.0-31.0); MEAN CORPUSCULAR HGB CONC 31.8 g/dL (32.0-36.0); MEAN CORPUSCULAR VOLUME 97.7 fL (80.0-94.0); MEAN PLATELET VOLUME 8.8 fL (7.4-11.4); MONOCYTES # (AUTO) 0.6 10^3/uL (0.0-1.0); MONOCYTES % (AUTO) 11.2 %; NEUTROPHILS # (AUTO) 3.5 10^3/uL (1.5-6.6); NEUTROPHILS % (AUTO) 69.1 %; PLT - PLATELET COUNT 108 10^3/uL (130-450); RED BLOOD COUNT 3.26 10^6/uL (4.70-6.10); RED CELL DISTRIBUTION WIDTH 13.7 % (12.0-15.0)
[2017-05-30 05:04] LABS: INR 3.7 (0.8-1.2); PT - PROTHROMBIN TIME 39.5 secs (9.9-12.6)
[2017-05-30 05:15] LABS: CALCIUM 8.7 mg/dL (8.5-10.3); CREATININE 2.1 mg/dL (0.6-1.2)
[2017-05-30 05:30] LABS: PLATELET ESTIMATE, MANUAL DECREASED (<130,000) (NORMAL); PLATELET MORPHOLOGY NORMAL APPEARANCE (NORMAL); RBC MORPHOLOGY (MULTIPLE) NORMAL APPEARANCE (NORMAL)
[2017-05-30] MEDS: SODIUM CHLORIDE FLUSH 0.9% 10 ML SYRINGE IVP SCH ×3 (06:53→21:41)
[2017-05-30] MEDS: SODIUM CHLORIDE 0.9% 1,000 ML IV SCH ×3 (06:59→23:55)
[2017-05-30] MEDS: IPRATROPIUM/ALBUTEROL 3 ML NEB INH PRN ×2 (07:45→13:00)
[2017-05-30] MEDS: SEVELAMER 800 MG TABLET PO SCH ×2 (09:08→16:13)
[2017-05-30] MEDS: SACCHAROMYCES BOULARDII 250 MG CAPSULE PO SCH ×2 (09:08→16:13)
[2017-05-30] MEDS: POLYETHYLENE GLYCOL 3350 17 GM PACKET PO SCH (09:09)
[2017-05-30] MEDS: METOPROLOL SUCCINATE 25 MG TABLET PO SCH (09:13)
[2017-05-30] MEDS: CLOPIDOGREL 75 MG TABLET PO SCH (09:13)
[2017-05-30] MEDS: FAMOTIDINE 20 MG TABLET PO SCH (09:13)
[2017-05-30] MEDS: ISOSORBIDE MONONITRATE ER 30 MG TABLET PO SCH (09:13)
[2017-05-30] MEDS: ALLOPURINOL 100 MG TABLET PO SCH (09:13)
[2017-05-30] MEDS: amLODIPine 5 MG TABLET PO SCH (09:14)
[2017-05-30] MEDS: levoFLOXacin 750 MG/150 ML 750 MG/150 ML BAG IV SCH (09:40)
[2017-05-30] MEDS: WARFARIN 5 MG TABLET PO SCH (15:49)
[2017-05-30] MEDS: ATORVASTATIN 10 MG TABLET PO SCH (21:41)
[2017-05-30] MEDS: risperiDONE 1 MG TABLET PO SCH (21:41)
--- NOTE | 2017-05-30 23:09 | PROVIDER PROGRESS NOTE ---
Assessment/Plan - Problem List (1) HCAP (healthcare-associated pneumonia) Assessment/Plan: Improving clinially Continue present antibiotics and respiratory care (2) Acute on chronic renal failure Assessment/Plan: Stable but no better creatinine Continue to monitor BMP daily (3) Metabolic encephalopathy Assessment/Plan: Resolving as pneumonia being treated (4) Generalized weakness Assessment/Plan: Improving lethargy Start PT if possible (5) COPD (chronic obstructive pulmonary disease) Qualifiers: COPD type: COPD with acute lower respiratory infection Qualified Code(s): J44.0 - Chronic obstructive pulmonary disease with acute lower respiratory infection Assessment/Plan: As #1 (6) Hypertension Qualifiers: Hypertension type: essential hypertension Qualified Code(s): I10 - Essential (primary) hypertension Assessment/Plan: Continue present meds for BP control (7) CAD (coronary artery disease) Qualifiers: Coronary Disease-Associated Artery/Lesion type: [place] artery Associated angina: without angina Assessment/Plan: Stable, without symptoms this admission Continue cardiac meds - Current Meds Current Meds: Current Medications Generic Name Dose Route Start Last Admin Trade Name Freq PRN Reason Stop Dose Admin Albuterol/Ipratropium 3 ml 05/29/17 08:42 05/30/17 13:00 Duoneb INH 3 ml RTQID PRN Administration Wheezing Allopurinol 100 mg 05/29/17 09:00 05/30/17 09:13 Zyloprim PO 100 mg DAILY AMADO Administration Amlodipine Besylate 10 mg 05/29/17 09:00 05/30/17 09:14 Norvasc PO 10 mg DAILY AMADO Administration Atorvastatin Calcium 20 mg 05/29/17 21:00 05/30/17 21:41 Lipitor PO 20 mg QPM AMADO Administration Clopidogrel Bisulfate 75 mg 05/29/17 09:00 05/30/17 09:13 Plavix PO 75 mg DAILY AMADO Administration Famotidine 20 mg 05/29/17 09:00 05/30/17 09:13 Pepcid PO 20 mg DAILY AMADO Administration Levofloxacin 750 mg in 150 mls @ 100 mls/hr 05/30/17 09:00 05/30/17 11:30 Levaquin 750 Mg/150 Ml IV Infused Q48H AMADO Infusion Piperacillin Sod/Tazobactam 100 mls @ 200 mls/hr 05/29/17 12:00 01/30/18 19: 45 Sod 3.375 gm/ Sodium Chloride IV Infused Q6HR AMADO Infusion Sodium Chloride 1,000 mls @ 100 mls/hr 05/29/17 11:00 05/30/17 19:15 Normal Saline 0.9% IV Infused .Q10H AMADO Infusion Isosorbide Mononitrate 30 mg 05/29/17 09:00 05/30/17 09:13 Imdur PO 30 mg DAILY AMAOD Administration Metoprolol Succinate 12.5 mg 05/29/17 12:00 05/30/17 09:13 Toprol Xl PO 12.5 mg DAILY AMADO Administration Polyethylene Glycol 17 gm 05/30/17 09:00 05/30/17 09:09 Miralax PO 17 gm DAILY AMADO Administration Risperidone 1.5 mg 05/29/17 21:00 05/30/17 21:41 Risperdal PO 1.5 mg QPM AMADO Administration Saccharomyces Boulardii 250 mg 05/29/17 17:00 05/30/17 16:13 Florastor PO 250 mg BIDWM AMADO Administration Sevelamer HCl 800 mg 05/29/17 12:00 05/30/17 16:13 Renagel PO 800 mg BIDWM AMADO Administration Sodium Chloride 10 ml 05/29/17 14:00 05/30/17 21:41 Normal Saline Flush 0.9% IVP 10 ml Q8HR AMADO Administration Warfarin Sodium 5 mg 05/29/17 14:00 05/30/17 15:49 Coumadin PO Not Given QDWARFARIN AMADO - Lab Result Fish Bone Diagrams: 06/01/17 04:33 06/01/17 04:33 - Additional Planning My Orders: My Active Orders 05/30/17 Dinner Soft Mechanical Diet [DIET] Subjective - Subjective Patient Reports: No Complaints Nursing Reports: Confused Objective Vital Signs: Vital Signs - 24 hr 05/30/17 05/30/17 05/30/17 06:00 07:45 09:11 Temperature 36.9 C 36.6 C Heart Rate 46 L Heart Rate [ 62 74 Brachial] Heart Rate [ Sitting] Heart Rate [ Supine] Respiratory 18 20 20 Rate Blood Pressure 156/55 H 150/50 H [Left Brachial artery] Blood Pressure [Sitting] Blood Pressure [Supine] O2 Saturation 95 96 05/30/17 05/30/17 05/30/17 13:00 14:05 15:55 Temperature 36.7 C Heart Rate 64 Heart Rate [ 80 Brachial] Heart Rate [ 81 Sitting] Heart Rate [ 75 Supine] Respiratory 20 20 Rate Blood Pressure 150/50 H [Left Brachial artery] Blood Pressure 150/82 H [Sitting] Blood Pressure 140/47 H [Supine] O2 Saturation 97 Oxygen O2 Source [With Activity] Room air O2 Source Room air I&O (Last 24 Hrs): Intake and Output Totals x24h 05/28/17 05/29/17 05/30/17 23:59 23:59 23:59 Intake Total 4262.338 9274 Output Total 200 Balance 7470.212 1771 General: No acute distress, Other (Appears tired) HEENT: Other (Mucosa dry) Neck: Supple Cardiovascular: Other (Diastant HS) Respiratory: Other (Prolonged expiratory phase, no wheezes) Abdomen: Soft Extremities: No edema - Results Results: Laboratory Results WBC 5.0 x10^3/uL (4.8-10.8) 05/30/17 04:29 RBC 3.26 10^6/uL (4.70-6.10) L 05/30/17 04:29 Hgb 10.1 g/dL (14.0-18.0) L 05/30/17 04:29 Hct 31.9 % (42.0-52.0) L 05/30/17 04:29 MCV 97.7 fL (80.0-94.0) H 05/30/17 04:29 MCH 31.1 pg (27.0-31.0) H 05/30/17 04:29 MCHC 31.8 g/dL (32.0-36.0) L 05/30/17 04:29 RDW 13.7 % (12.0-15.0) 05/30/17 04:29 Plt Count 108 10^3/uL (130-450) L 05/30/17 04:29 MPV 8.8 fL (7.4-11.4) 05/30/17 04:29 Neut # 3.5 10^3/uL (1.5-6.6) 05/30/17 04:29 Lymph # 0.6 10^3/uL (1.5-3.5) L 05/30/17 04:29 [place] # 0.6 10^3/uL (0.0-1.0) 05/30/17 04:29 Eos # 0.3 10^3/uL (0.0-0.7) 05/30/17 04: Baso # 0.0 10^3/uL (0.0-0.1) 05/30/17 04:29 Absolute Nucleated RBC 0.00 x10^3/uL 05/30/17 04:29 Nucleated RBC % 0.1 /100WBC 05/30/17 04:29 Manual Slide Review Indicated 05/30/17 04:29 Platelet Estimate DECREASED (<130,000) (NORMAL) 05/30/17 04:29 Platelet Morphology NORMAL APPEARANCE (NORMAL) 05/30/17 04:29 RBC Morph Micro Appear NORMAL APPEARANCE (NORMAL) 05/30/17 04:29 PT 39.5 secs (9.9-12.6) H 05/30/17 04:29 INR 3.7 (0.8-1.2) H 05/30/17 04:29 Sodium 141 mmol/L (135-145) 05/30/17 04:29 Potassium 3.9 mmol/L (3.5-5.0) 05/30/17 04:29 Chloride 111 mmol/L (101-111) 05/30/17 04:29 Carbon Dioxide 22 mmol/L (21-32) 05/30/17 04:29 Anion Gap 8.0 (6-13) 05/30/17 04:29 BUN 25 mg/dL (6-20) H 05/30/17 04:29 Creatinine 2.1 mg/dL (0.6-1.2) H 05/30/17 04:29 Estimated GFR (MDRD) 31 (>89) L 05/30/17 04:29 Glucose 86 mg/dL (70-100) 05/30/17 04:29 Lactic Acid 1.3 mmol/L (0.5-2.2) 05/29/17 00:39 Calcium 8.7 mg/dL (8.5-10.3) 05/30/17 04:29 Total Bilirubin 0.9 mg/dL (0.2-1.0) 05/29/17 00:39 AST 28 IU/L (10-42) 05/29/17 00:39 ALT 21 IU/L (10-60) 05/29/17 00:39 Alkaline Phosphatase 75 IU/L (42-121) 05/29/17 00:39 Troponin I 0.05 ng/mL (<0.49) 05/29/17 00:39 B-Natriuretic Peptide 77 pg/mL (5-100) 05/29/17 00:45 Total Protein 6.7 g/dL (6.7-8.2) 05/29/17 00:39 Albumin 3.5 g/dL (3.2-5.5) 05/29/17 00:39 Globulin 3.2 g/dL (2.1-4.2) 05/29/17 00:39 Albumin/Globulin Ratio 1.1 (1.0-2.2) 05/29/17 00:39 Lipase 105 U/L (22-51) H 05/29/17 00:39 Urine Color YELLOW 05/29/17 00:55 Urine Clarity CLEAR (CLEAR) 05/29/17 00:55 Urine pH 6.0 PH (5.0-7.5) 05/29/17 00:55 Ur Specific [place] 1.025 (1.002-1.030) 05/29/17 00:55 Urine Protein >=300 mg/dL (NEGATIVE) 05/29/17 00:55 Urine Glucose (UA) NEGATIVE mg/dL (NEGATIVE) 05/29/17 00:55 Urine Ketones NEGATIVE mg/dL (NEGATIVE) 05/29/17 00:55 Urine Occult Blood NEGATIVE (NEGATIVE) 05/29/17 00:55 Urine Nitrite NEGATIVE (NEGATIVE) 05/29/17 00:55 Urine Bilirubin NEGATIVE (NEGATIVE) 05/29/17 00:55 Urine Urobilinogen 0.2 (NORMAL) E.U./dL (NORMAL) 05/29/17 00:55 Ur Leukocyte Esterase NEGATIVE (NEGATIVE) 05/29/17 00:55 Urine RBC 0-5 /HPF (0-5) 05/29/17 00:55 Urine WBC 0-3 /HPF (0-3) 05/29/17 00:55 Ur Squamous Epith Cells RARE Squamous (<= Few) 05/29/17 00:55 Amorphous Sediment Few /LPF 05/29/17 00:55 Urine Bacteria Rare /HPF (None Seen) 05/29/17 00:55 Ur Microscopic Review INDICATED 05/29/17 00:55 Urine Culture Comments NOT INDICATED 05/29/17 00:55 Salicylates < 6.0 mg/dL 05/29/17 00:39 Urine Opiates Screen NEGATIVE (NEGATIVE) 05/29/17 00:55 Ur Oxycodone Screen NEGATIVE (NEGATIVE) 05/29/17 00:55 Urine Methadone Screen NEGATIVE (NEGATIVE) 05/29/17 00:55 Ur Propoxyphene Screen NEGATIVE (NEGATIVE) 05/29/17 00:55 Acetaminophen < 10 ug/mL (10-30) L 05/29/17 00:39 Ur Barbiturates Screen NEGATIVE (NEGATIVE) 05/29/17 00:55 Ur Tricyclics Screen NEGATIVE (NEGATIVE) 05/29/17 00:55 Ur Phencyclidine Scrn NEGATIVE (NEGATIVE) 05/29/17 00:55 Ur Amphetamine Screen NEGATIVE (NEGATIVE) 05/29/17 00:55 U Methamphetamines Scrn NEGATIVE (NEGATIVE) 05/29/17 00:55 U Benzodiazepines Scrn NEGATIVE (NEGATIVE) 05/29/17 00:55 Urine Cocaine Screen NEGATIVE (NEGATIVE) 05/29/17 00:55 U Cannabinoids Screen NEGATIVE (NEGATIVE) 05/29/17 00:55 Ethyl Alcohol < 5.0 mg/dL 05/29/17 00:39 Influenza A (Rapid) Negative (Negative) 05/29/17 11:05 Influenza B (Rapid) Negative (Negative) 05/29/17 11:05 Influenza Types A,B Ag - 05/29/17 11:05
[2017-05-31 04:50] LABS: BASOPHILS % (AUTO) 0.3 %; EOSINOPHILS % (AUTO) 5.6 %; HGB - HEMOGLOBIN 10.6 g/dL (14.0-18.0); MEAN CORPUSCULAR HEMOGLOBIN 31.8 pg (27.0-31.0); MEAN CORPUSCULAR HGB CONC 33.9 g/dL (32.0-36.0); MEAN CORPUSCULAR VOLUME 93.7 fL (80.0-94.0); MEAN PLATELET VOLUME 7.5 fL (7.4-11.4); MONOCYTES % (AUTO) 11.6 %; NEUTROPHILS % (AUTO) 70.5 %; PLT - PLATELET COUNT 116 10^3/uL (130-450); RED BLOOD COUNT 3.34 10^6/uL (4.70-6.10); RED CELL DISTRIBUTION WIDTH 13.3 % (12.0-15.0); WHITE BLOOD COUNT 5.3 x10^3/uL (4.8-10.8)
[2017-05-31 04:53] LABS: CALCIUM 8.6 mg/dL (8.5-10.3); CREATININE 2.1 mg/dL (0.6-1.2)
[2017-05-31 04:55] LABS: INR 3.3 (0.8-1.2); PT - PROTHROMBIN TIME 35.7 secs (9.9-12.6)
[2017-05-31 04:59] LABS: ABNORMAL LYMPHS % (MANUAL) 0 %
[2017-05-31] MEDS: PIPERACILLIN/TAZOBACTAM 3.375 GM in SODIUM CHLORIDE 0.9% MINIBAG 100 ML IV SCH ×3 (05:06→18:09)
[2017-05-31] MEDS: SODIUM CHLORIDE FLUSH 0.9% 10 ML SYRINGE IVP SCH ×3 (05:08→21:44)
[2017-05-31 05:57] LABS: BAND NEUTROPHILS % (MANUAL) 1 %; DIFFERENTIAL COMMENT MANUAL DIFFERENTIAL; EOSINOPHILS # (MANUAL) 0.3 10^3/uL (0-0.7); LYMPHOCYTES # (MANUAL) 1.1 10^3/uL (1.5-3.5); LYMPHOCYTES % (MANUAL) 16 %; MONOCYTES # (MANUAL) 0.7 10^3/uL (0.0-1.0); NEUTROPHILS # (MANUAL) 3.2 10^3/uL (1.5-6.6); NEUTROPHILS % (MANUAL) 60 %; PLATELET ESTIMATE, MANUAL DECREASED (<130,000) (NORMAL); PLATELET MORPHOLOGY NORMAL APPEARANCE (NORMAL); RBC MORPHOLOGY (MULTIPLE) 1+ HYPOCHROMASIA (NORMAL)
[2017-05-31] MEDS: SACCHAROMYCES BOULARDII 250 MG CAPSULE PO SCH ×2 (08:16→18:10)
[2017-05-31] MEDS: SEVELAMER 800 MG TABLET PO SCH ×2 (08:16→18:10)
[2017-05-31] MEDS: METOPROLOL SUCCINATE 25 MG TABLET PO SCH (08:17)
[2017-05-31] MEDS: amLODIPine 5 MG TABLET PO SCH (08:18)
[2017-05-31] MEDS: ALLOPURINOL 100 MG TABLET PO SCH (08:19)
[2017-05-31] MEDS: FAMOTIDINE 20 MG TABLET PO SCH (08:19)
[2017-05-31] MEDS: CLOPIDOGREL 75 MG TABLET PO SCH (08:21)
[2017-05-31] MEDS: ISOSORBIDE MONONITRATE ER 30 MG TABLET PO SCH (08:21)
[2017-05-31] MEDS: POLYETHYLENE GLYCOL 3350 17 GM PACKET PO SCH (08:22)
[2017-05-31] MEDS: SODIUM CHLORIDE 0.9% 1,000 ML IV SCH ×2 (10:59→22:42)
[2017-05-31] MEDS: WARFARIN 5 MG TABLET PO SCH (11:43)
--- NOTE | 2017-05-31 16:55 | PROVIDER PROGRESS NOTE ---
Assessment/Plan - Problem List (1) HCAP (healthcare-associated pneumonia) Assessment/Plan: Significsant improvement in respiratory status. Probable DCh tomorrow (2) Acute on chronic renal failure Assessment/Plan: Stable but abnormal creat. This may be his baseline CKD. Continue to monitor (3) Metabolic encephalopathy Assessment/Plan: Improved significantly, probably to his baseline, with treatment of infection. Probable DCh tomorrow Social Work is looking into where his DCh will be to (4) COPD (chronic obstructive pulmonary disease) Qualifiers: COPD type: COPD with acute lower respiratory infection Qualified Code(s): J44.0 - Chronic obstructive pulmonary disease with acute lower respiratory infection Assessment/Plan: Stable pulmonary exam Continue meds (5) CAD (coronary artery disease) Qualifiers: Coronary Disease-Associated Artery/Lesion type: [place] artery Associated angina: without angina Assessment/Plan: Stable during this admission. Continue meds - Current Meds Current Meds: Current Medications Generic Name Dose Route Start Last Admin Trade Name Freq PRN Reason Stop Dose Admin Albuterol/Ipratropium 3 ml 05/29/17 08:42 05/30/17 13:00 Duoneb INH 3 ml RTQID PRN Administration Wheezing Allopurinol 100 mg 05/29/17 09:00 05/31/17 08:19 Zyloprim PO 100 mg DAILY AMADO Administration Amlodipine Besylate 10 mg 05/29/17 09:00 05/31/17 08:18 Norvasc PO 10 mg DAILY AMADO Administration Atorvastatin Calcium 20 mg 05/29/17 21:00 05/30/17 21:41 Lipitor PO 20 mg QPM AMADO Administration Clopidogrel Bisulfate 75 mg 05/29/17 09:00 05/31/17 08:21 Plavix PO 75 mg DAILY AMADO Administration Famotidine 20 mg 05/29/17 09:00 05/31/17 08:19 Pepcid PO 20 mg DAILY AMADO Administration Levofloxacin 750 mg in 150 mls @ 100 mls/hr 05/30/17 09:00 05/30/17 11:30 Levaquin 750 Mg/150 Ml IV Infused Q48H AMADO Infusion Piperacillin Sod/Tazobactam 100 mls @ 200 mls/hr 05/29/17 12:00 05/31/17 12: 15 Sod 3.375 gm/ Sodium Chloride IV Infused Q6HR AMADO Infusion Sodium Chloride 1,000 mls @ 100 mls/hr 05/29/17 11:00 05/31/17 10:59 Normal Saline 0.9% IV 100 mls/hr .Q10H AMADO Administration Isosorbide Mononitrate 30 mg 05/29/17 09:00 05/31/17 08:21 Imdur PO 30 mg DAILY AMADO Administration Metoprolol Succinate 12.5 mg 05/29/17 12:00 05/31/17 08:17 Toprol Xl PO 12.5 mg DAILY AMADO Administration Polyethylene Glycol 17 gm 05/30/17 09:00 05/31/17 08:22 Miralax PO Not Given DAILY AMADO Risperidone 1.5 mg 05/29/17 21:00 05/30/17 21:41 Risperdal PO 1.5 mg QPM AMADO Administration Saccharomyces Boulardii 250 mg 05/29/17 17:00 05/31/17 08:16 Florastor PO 250 mg BIDWM AMADO Administration Sevelamer HCl 800 mg 05/29/17 12:00 05/31/17 08:16 Renagel PO 800 mg BIDWM AMADO Administration Sodium Chloride 10 ml 05/29/17 14:00 05/31/17 11:42 Normal Saline Flush 0.9% IVP Not Given Q8HR AMADO Warfarin Sodium 5 mg 05/29/17 14:00 05/31/17 11:43 Coumadin PO Not Given QDWARFARIN AMADO - Lab Result Fish Bone Diagrams: 06/01/17 04:33 06/01/17 04:33 - Additional Planning My Orders: My Active Orders 05/30/17 Dinner Soft Mechanical Diet [DIET] Subjective - Subjective Patient Reports: Resting Comfortably Nursing Reports: Other (Slightly less confused) Objective Vital Signs: Vital Signs - 24 hr 05/31/17 05/31/17 05/31/17 00:39 08:12 13:45 Temperature 36.8 C 36.5 C Heart Rate 76 Heart Rate [ 66 69 Brachial] Respiratory 22 30 H 20 Rate Blood Pressure 170/55 H 183/60 H [Left Brachial artery] O2 Saturation 97 96 Oxygen O2 Source [With Activity] Room air O2 Source Room air I&O (Last 24 Hrs): Intake and Output Totals x24h 05/29/17 05/30/17 05/31/17 23:59 23:59 23:59 Intake Total 4418.694 4473.667 2626.666 Output Total 200 Balance 3078.181 1816.667 2626.666 General: No acute distress, Other (Sleeping in a left lat decubitus position, breathing comfortably) HEENT: Mucous membr. moist/pink Neck: Supple Cardiovascular: Regular rate, No murmurs Respiratory: No respiratory distress, Breath sounds nml Abdomen: Soft Extremities: No edema - Results Results: Laboratory Results WBC 5.3 x10^3/uL (4.8-10.8) 05/31/17 04:30 RBC 3.34 10^6/uL (4.70-6.10) L 05/31/17 04:30 Hgb 10.6 g/dL (14.0-18.0) L 05/31/17 04:30 Hct 31.3 % (42.0-52.0) L 05/31/17 04:30 MCV 93.7 fL (80.0-94.0) 05/31/17 04:30 MCH 31.8 pg (27.0-31.0) H 05/31/17 04:30 MCHC 33.9 g/dL (32.0-36.0) 05/31/17 04:30 RDW 13.3 % (12.0-15.0) 05/31/17 04:30 Plt Count 116 10^3/uL (130-450) L 05/31/17 04:30 MPV 7.5 fL (7.4-11.4) 05/31/17 04:30 Neut # Not Reportable 05/31/17 04:30 Lymph # Not Reportable 05/31/17 04:30 [place] # Not Reportable 05/31/17 04:30 Eos # Not Reportable 05/31/17 04:30 Baso # Not Reportable 05/31/17 04:30 Absolute Nucleated RBC Not Reportable 05/31/17 04:30 Total Counted 100 05/31/17 04:30 Band Neuts % (Manual) 1 % (0-10) 05/31/17 04:30 Reactive Lymphs % (Man) 5 % 05/31/17 04:30 Abnorm Lymph % (Manual) 0 % 05/31/17 04:30 Nucleated RBC % Not Reportable 05/31/17 04:30 Neutrophils # (Manual) 3.2 10^3/uL (1.5-6.6) 05/31/17 04:30 Lymphocytes # (Manual) 1.1 10^3/uL (1.5-3.5) L 05/31/17 04:30 Monocytes # (Manual) 0.7 10^3/uL (0.0-1.0) 05/31/17 04:30 Eosinophils # (Manual) 0.3 10^3/uL (0-0.7) 05/31/17 04:30 Basophils # (Manual) 0.0 10^3/uL (0-0.1) 05/31/17 04:30 Differential Comment MANUAL DIFFERENTIAL 05/31/17 04:30 Manual Slide Review Indicated 05/30/17 04:29 Platelet Estimate DECREASED (<130,000) (NORMAL) 05/31/17 04:30 Platelet Morphology NORMAL APPEARANCE (NORMAL) 05/31/17 04:30 RBC Morph Micro Appear 1+ HYPOCHROMASIA (NORMAL) 05/31/17 04:30 PT 35.7 secs (9.9-12.6) H 05/31/17 04:30 INR 3.3 (0.8-1.2) H 05/31/17 04:30 Sodium 139 mmol/L (135-145) 05/31/17 04:30 Potassium 3.7 mmol/L (3.5-5.0) 05/31/17 04:30 Chloride 107 mmol/L (101-111) 05/31/17 04:30 Carbon Dioxide 20 mmol/L (21-32) L 05/31/17 04:30 Anion Gap 12.0 (6-13) 05/31/17 04:30 BUN 22 mg/dL (6-20) H 05/31/17 04:30 Creatinine 2.1 mg/dL (0.6-1.2) H 05/31/17 04:30 Estimated GFR (MDRD) 31 (>89) L 05/31/17 04:30 Glucose 104 mg/dL (70-100) H 05/31/17 04:30 Lactic Acid 1.3 mmol/L (0.5-2.2) 05/29/17 00:39 Calcium 8.6 mg/dL (8.5-10.3) 05/31/17 04:30 Total Bilirubin 0.9 mg/dL (0.2-1.0) 05/29/17 00:39 AST 28 IU/L (10-42) 05/29/17 00:39 ALT 21 IU/L (10-60) 05/29/17 00:39 Alkaline Phosphatase 75 IU/L (42-121) 05/29/17 00:39 Troponin I 0.05 ng/mL (<0.49) 05/29/17 00:39 B-Natriuretic Peptide 77 pg/mL (5-100) 05/29/17 00:45 Total Protein 6.7 g/dL (6.7-8.2) 05/29/17 00:39 Albumin 3.5 g/dL (3.2-5.5) 05/29/17 00:39 Globulin 3.2 g/dL (2.1-4.2) 05/29/17 00:39 Albumin/Globulin Ratio 1.1 (1.0-2.2) 05/29/17 00:39 Lipase 105 U/L (22-51) H 05/29/17 00:39 Urine Color YELLOW 05/29/17 00:55 Urine Clarity CLEAR (CLEAR) 05/29/17 00:55 Urine pH 6.0 PH (5.0-7.5) 05/29/17 00:55 Ur Specific [place] 1.025 (1.002-1.030) 05/29/17 00:55 Urine Protein >=300 mg/dL (NEGATIVE) 05/29/17 00:55 Urine Glucose (UA) NEGATIVE mg/dL (NEGATIVE) 05/29/17 00:55 Urine Ketones NEGATIVE mg/dL (NEGATIVE) 05/29/17 00:55 Urine Occult Blood NEGATIVE (NEGATIVE) 05/29/17 00:55 Urine Nitrite NEGATIVE (NEGATIVE) 05/29/17 00:55 Urine Bilirubin NEGATIVE (NEGATIVE) 05/29/17 00:55 Urine Urobilinogen 0.2 (NORMAL) E.U./dL (NORMAL) 05/29/17 00:55 Ur Leukocyte Esterase NEGATIVE (NEGATIVE) 05/29/17 00:55 Urine RBC 0-5 /HPF (0-5) 05/29/17 00:55 Urine WBC 0-3 /HPF (0-3) 05/29/17 00:55 Ur Squamous Epith Cells RARE Squamous (<= Few) 05/29/17 00:55 Amorphous Sediment Few /LPF 05/29/17 00:55 Urine Bacteria Rare /HPF (None Seen) 05/29/17 00:55 Ur Microscopic Review INDICATED 05/29/17 00:55 Urine Culture Comments NOT INDICATED 05/29/17 00:55 Salicylates < 6.0 mg/dL 05/29/17 00:39 Urine Opiates Screen NEGATIVE (NEGATIVE) 05/29/17 00:55 Ur Oxycodone Screen NEGATIVE (NEGATIVE) 05/29/17 00:55 Urine Methadone Screen NEGATIVE (NEGATIVE) 05/29/17 00:55 Ur Propoxyphene Screen NEGATIVE (NEGATIVE) 05/29/17 00:55 Acetaminophen < 10 ug/mL (10-30) L 05/29/17 00:39 Ur Barbiturates Screen NEGATIVE (NEGATIVE) 05/29/17 00:55 Ur Tricyclics Screen NEGATIVE (NEGATIVE) 05/29/17 00:55 Ur Phencyclidine Scrn NEGATIVE (NEGATIVE) 05/29/17 00:55 Ur Amphetamine Screen NEGATIVE (NEGATIVE) 05/29/17 00:55 U Methamphetamines Scrn NEGATIVE (NEGATIVE) 05/29/17 00:55 U Benzodiazepines Scrn NEGATIVE (NEGATIVE) 05/29/17 00:55 Urine Cocaine Screen NEGATIVE (NEGATIVE) 05/29/17 00:55 U Cannabinoids Screen NEGATIVE (NEGATIVE) 05/29/17 00:55 Ethyl Alcohol < 5.0 mg/dL 05/29/17 00:39 Influenza A (Rapid) Negative (Negative) 05/29/17 11:05 Influenza B (Rapid) Negative (Negative) 05/29/17 11:05 Influenza Types A,B Ag - 05/29/17 11:05
[2017-05-31] MEDS: ATORVASTATIN 10 MG TABLET PO SCH (21:43)
[2017-05-31] MEDS: risperiDONE 1 MG TABLET PO SCH (21:44)
[2017-06-01] MEDS: PIPERACILLIN/TAZOBACTAM 3.375 GM in SODIUM CHLORIDE 0.9% MINIBAG 100 ML IV SCH ×3 (00:25→12:35)
[2017-06-01] MEDS: IPRATROPIUM/ALBUTEROL 3 ML NEB INH PRN ×2 (00:34→09:40)
[2017-06-01] MEDS: SODIUM CHLORIDE FLUSH 0.9% 10 ML SYRINGE IVP SCH (03:44)
[2017-06-01 04:56] LABS: CALCIUM 8.1 mg/dL (8.5-10.3)
[2017-06-01 04:58] LABS: BASOPHILS % (AUTO) 0.2 %; EOSINOPHILS % (AUTO) 6.9 %; HGB - HEMOGLOBIN 10.4 g/dL (14.0-18.0); LYMPHOCYTES % (AUTO) 12.7 %; MEAN CORPUSCULAR HEMOGLOBIN 31.4 pg (27.0-31.0); MEAN CORPUSCULAR HGB CONC 33.5 g/dL (32.0-36.0); MEAN CORPUSCULAR VOLUME 93.7 fL (80.0-94.0); MEAN PLATELET VOLUME 7.7 fL (7.4-11.4); MONOCYTES % (AUTO) 10.8 %; NEUTROPHILS % (AUTO) 69.4 %; PLT - PLATELET COUNT 137 10^3/uL (130-450); RED CELL DISTRIBUTION WIDTH 13.3 % (12.0-15.0); WHITE BLOOD COUNT 5.9 x10^3/uL (4.8-10.8)
[2017-06-01 05:00] LABS: INR 1.9 (0.8-1.2); PT - PROTHROMBIN TIME 20.9 secs (9.9-12.6)
[2017-06-01 05:09] LABS: ABNORMAL LYMPHS % (MANUAL) 0 %
[2017-06-01 05:38] LABS: BAND NEUTROPHILS % (MANUAL) 6 %; DIFFERENTIAL COMMENT MANUAL DIFFERENTIAL; EOSINOPHILS # (MANUAL) 0.2 10^3/uL (0-0.7); LYMPHOCYTES % (MANUAL) 17 %; METAMYELOCYTES % (MANUAL) 1 %; MONOCYTES # (MANUAL) 0.7 10^3/uL (0.0-1.0); MYELOCYTES % (MANUAL) 1 %; NEUTROPHILS # (MANUAL) 3.8 10^3/uL (1.5-6.6); NEUTROPHILS % (MANUAL) 59 %; PLATELET ESTIMATE, MANUAL NORMAL (130-450,000) (NORMAL); RBC MORPHOLOGY (MULTIPLE) NORMAL APPEARANCE (NORMAL)
[2017-06-01] MEDS: SACCHAROMYCES BOULARDII 250 MG CAPSULE PO SCH (08:19)
[2017-06-01] MEDS: ALLOPURINOL 100 MG TABLET PO SCH (08:19)
[2017-06-01] MEDS: POLYETHYLENE GLYCOL 3350 17 GM PACKET PO SCH (08:19)
[2017-06-01] MEDS: CLOPIDOGREL 75 MG TABLET PO SCH (08:20)
[2017-06-01] MEDS: FAMOTIDINE 20 MG TABLET PO SCH (08:20)
[2017-06-01] MEDS: SEVELAMER 800 MG TABLET PO SCH (08:20)
[2017-06-01] MEDS: ISOSORBIDE MONONITRATE ER 30 MG TABLET PO SCH (08:20)
[2017-06-01] MEDS: METOPROLOL SUCCINATE 25 MG TABLET PO SCH (08:20)
[2017-06-01] MEDS: amLODIPine 5 MG TABLET PO SCH (08:20)
[2017-06-01] MEDS: levoFLOXacin 750 MG/150 ML 750 MG/150 ML BAG IV SCH (08:22)
[2017-06-01 08:35] VITALS: BP 178/54
[2017-06-01] MEDS: SODIUM CHLORIDE 0.9% 1,000 ML IV SCH (10:04)
--- NOTE | 2017-06-01 12:50 | Discharge Plan ---
Discharge Plan Disposition: Home, Self Care Condition: Stable Prescriptions: Levofloxacin [Levaquin] 750 mg PO DAILY #7 tablet Diet: Cardiac Activity Restrictions: Activity as Tolerated Shower Restrictions: No Driving Restrictions: Yes (May NOT drive) Instruction Topics: Pneumonia Dc Additional Instructions or Follow Up instructions: Resume all your medications, as you took before this hospitalization Take this new prescription for Levofloxin antibiotic until they are all finished A Home Health referral has been ordered for Physical Therapy and Occupational Therapy at your home See your doctor in 1-2 weeks for follow-up of the pneumonia Follow-Up Care: Home Health - PT, Home Health - OT No Smoking: If you smoke, Please STOP! Call for help. Follow-up with: Suzanna Frey, PHARMD [Primary Care Provider] -
--- NOTE | 2017-06-18 07:41 | DISCHARGE SUMMARY ---
DATE OF ADMISSION: 05/29/2017 DATE OF DISCHARGE: 06/01/2017 SUBJECTIVE: This is a 72-year-old white male with a history of CHF, hypertension, CAD, CKD, COPD, prior CVA on Coumadin, possible mild dementia, he lives with his sister. The patient was admitted after 2-3 days of worsening confusion and weakness and was found to have pneumonia on chest x-ray. The patient had just been hospitalized 2 months previously with similar altered mental status, found to be from a UTI and this was complicated with a non-ST elevation myocardial infarction that was treated medically. HOSPITAL COURSE AND DISCHARGE DIAGNOSES 1. Healthcare-acquired pneumonia. The patient was started on empiric Rocephin and Zithromax, which was later changed to Zosyn and levofloxacin. He had improvement in his mental status daily and his minimal cough and shortness of breath improved rapidly as well. The patient was discharged with oral levofloxacin 750 mg p.o. daily for an additional 7 days. 2. Chronic obstructive pulmonary disease exacerbation. The patient was continued on his nebulizers during this admission. 3. Acute on chronic renal failure. The patient's admitting creatinine was 2.5 and at discharge it was 2.0, which was very likely his baseline. He received gentle IV hydration, which improved the creatinine. 4. Metabolic encephalopathy. The patient appears to get altered mental status when he gets infections. He was more awake and back to his baseline mild confusion according to his sister, who is his caregiver and who he lives with, at the time of discharge. 5. Coronary artery disease. The patient was continued on his medical management for his recent non-ST elevation MA and had no complaints of chest pain during this admission. 6. History of cerebrovascular accident. The patient was on his Coumadin throughout this entire course. ALLERGIES: NONE. MEDICATIONS AT DISCHARGE 1. Albuterol inhaler. 2. Allopurinol 100 mg daily. 3. Norvasc 10 mg daily. 4. Lipitor 20 mg daily. 5. Symbicort inhaler. 6. Tums p.o. t.i.d. 7. Plavix 75 mg daily. 8. Imdur 30 mg daily. 9. Levofloxacin 750 mg daily for 7 more days. 10. Toprol-XL 12.5 mg daily. 11. Risperdal 1.5 mg every evening. 12. Renagel 2400 mg p.o. t.i.d. 13. Coumadin 6 mg alternating with 3 mg daily. LABORATORY DATA AND IMAGING: Reviewed and summarized above. CONDITION AT DISCHARGE: Stable. PHYSICAL EXAMINATION AT DISCHARGE: VITAL SIGNS: Blood pressure 127/80, heart rate 71, afebrile, room air saturation 97%. HEENT: Unremarkable. NECK: Without JVD or carotid bruits. CHEST: Clear, diminished breath sounds diffusely, but no wheezes. HEART sounds normal and distant. ABDOMEN: Soft. EXTREMITIES: Without clubbing, cyanosis or edema. NEUROLOGIC: Intact except for poor memory. FOLLOWUP: Follow up with his PCP in 1-2 weeks. The patient was being discharged again to reside with his sister and she is his main caregiver, the patient does require a cane or a walker. Home health PT and OT were ordered at the time of discharge. CODE STATUS: FULL CODE. TIME REQUIRED TO COMPLETE HIS ENTIRE DISCHARGE: 50 minutes. TD: 06/18/2017 07:33 NELL
== END 2017-06-01 13:58 | disposition home or self-care (01) | DRG 193 ==
LOC: EDUNIT# → SUPCPDRO → ED → MS3 08:37
PROVIDERS: ADMIT Internal Medicine; ATTEND Internal Medicine
DX: J18.9 Pneumonia, unspecified organism (principal); G93.41 Metabolic encephalopathy; J44.0 Chronic obstructive pulmonary disease with (acute) lower respiratory infection; J44.1 Chronic obstructive pulmonary disease with (acute) exacerbation; N17.9 Acute kidney failure, unspecified; I13.0 Hypertensive heart and chronic kidney disease with heart failure and stage 1 through stage 4 chronic kidney disease, or unspecified chronic kidney disease; I50.9 Heart failure, unspecified; E78.5 Hyperlipidemia, unspecified; I25.10 Atherosclerotic heart disease of native coronary artery without angina pectoris; N18.9 Chronic kidney disease, unspecified; M19.90 Unspecified osteoarthritis, unspecified site; M10.9 Gout, unspecified; Z86.73 Personal history of transient ischemic attack (TIA), and cerebral infarction without residual deficits; Z79.01 Long term (current) use of anticoagulants; Z66 Do not resuscitate; Z98.61 Coronary angioplasty status; F03.90 Unspecified dementia, unspecified severity, without behavioral disturbance, psychotic disturbance, mood disturbance, and anxiety; Y95 Nosocomial condition; R32 Unspecified urinary incontinence; Z79.02 Long term (current) use of antithrombotics/antiplatelets; E86.0 Dehydration
CPT/HCPCS: 36415; 51701; 71046; 80048; 80053; 80306; 80307; 80320; 80329; 81001; 81003; 83605; 83690; 83880; 84484; 85025; 85610; 87040; 87086; 87275; 87276; 93005; 94640; 96361; 96365; 96368; 99285

== ENCOUNTER 2017-06-06 08:23 | Outpatient (CLI) | payer MEDICARE, MEDICAID | END 2017-06-06 08:24 | disposition home or self-care (01) | LOC: LAB.F 08:23 | PROVIDERS: ATTEND Pharmacist | DX: I82.409 Acute embolism and thrombosis of unspecified deep veins of unspecified lower extremity (principal); I48.92 Unspecified atrial flutter | CPT/HCPCS: 85610 ==

== ENCOUNTER 2017-06-07 22:50 | Outpatient (CLI) | payer MEDICARE, MEDICAID | END 2017-06-07 22:51 | disposition critical access hospital (66) | LOC: EMS 22:50 | PROVIDERS: ATTEND Surgery | DX: R53.1 Weakness (principal); W19.XXXA Unspecified fall, initial encounter; Y92.002 Bathroom of unspecified non-institutional (private) residence as the place of occurrence of the external cause | CPT/HCPCS: A0425; A0427 ==

== ENCOUNTER 2017-06-07 23:17 | Inpatient (IN) | payer MEDICARE, MEDICAID ==
[2017-06-07 23:56] LABS: BASOPHILS % (AUTO) 0.3 %; EOSINOPHILS % (AUTO) 1.6 %; LYMPHOCYTES % (AUTO) 7.9 %; MEAN CORPUSCULAR HEMOGLOBIN 30.6 pg (27.0-31.0); MEAN CORPUSCULAR VOLUME 92.6 fL (80.0-94.0); MEAN PLATELET VOLUME 8.2 fL (7.4-11.4); MONOCYTES % (AUTO) 11.2 %; PLT - PLATELET COUNT 109 10^3/uL (130-450); RED BLOOD COUNT 3.26 10^6/uL (4.70-6.10); RED CELL DISTRIBUTION WIDTH 13.1 % (12.0-15.0); WHITE BLOOD COUNT 7.5 x10^3/uL (4.8-10.8)
[2017-06-07 23:57] LABS: ABNORMAL LYMPHS % (MANUAL) 0 %; INR 1.8 (0.8-1.2); PT - PROTHROMBIN TIME 20.1 secs (9.9-12.6)
[2017-06-08 00:01] LABS: ALBUMIN 2.9 g/dL (3.2-5.5); ALBUMIN/GLOBULIN RATIO 0.9 (1.0-2.2); BILIRUBIN,TOTAL 0.4 mg/dL (0.2-1.0); CALCIUM 12.3 mg/dL (8.5-10.3); CREATININE 2.5 mg/dL (0.6-1.2); MAGNESIUM 1.5 mg/dL (1.7-2.8); PHOSPHORUS 3.1 mg/dL (2.5-4.6); TOTAL PROTEIN 6.2 g/dL (6.7-8.2)
--- NOTE | 2017-06-08 00:20 | XRAY Preliminary Report ---
Exam: XR CHEST 1 VIEW X-RAY IMPRESSION: 1. Right suprahilar opacity appears somewhat masslike. Mild pneumonia or confluent edema remains poss ible. Follow-up chest CT should be considered to exclude neoplasm. 2. Cardiomegaly without overt heart failure. Results and recommendations to Dr. Knapp. [facility] SITE ID: [id number]
[2017-06-08 00:21] LABS: BAND NEUTROPHILS % (MANUAL) 6 %; DIFFERENTIAL COMMENT MANUAL DIFFERENTIAL; EOSINOPHILS # (MANUAL) 0.2 10^3/uL (0-0.7); LYMPHOCYTES # (MANUAL) 1.3 10^3/uL (1.5-3.5); LYMPHOCYTES % (MANUAL) 17 %; MONOCYTES # (MANUAL) 0.6 10^3/uL (0.0-1.0); NEUTROPHILS # (MANUAL) 5.5 10^3/uL (1.5-6.6); NEUTROPHILS % (MANUAL) 67 %; PLATELET ESTIMATE, MANUAL DECREASED (<130,000) (NORMAL); RBC MORPHOLOGY (MULTIPLE) NORMAL APPEARANCE (NORMAL)
--- NOTE | 2017-06-08 00:22 | CT Preliminary Report ---
Exam: CT HEAD W/O IMPRESSION: 1. No acute intracranial process. 2. Stable extensive bilateral parietal encephalomalacia compared to the brain CT from 04/19/2017. [facility] SITE ID: [id number]
--- NOTE | 2017-06-08 00:35 | ED Physician Documentation ---
PD HPI DYSPNEA - Stated complaint Stated Complaint: FALL/HEAD INJURY - Chief complaint Chief Complaint: Trauma Hd/Nk - History obtained from History obtained from: EMS - History of Present Illness Timing - onset: Today Timing - details: Abrupt onset Worsened by: Exertion Associated symptoms: Fever, Cough Similar symptoms before: Work up / diagnostics, Treatment Recently seen: Admitted - Additional information Additional information: Patient is a 72 year old male with multiple medical problems who is presenting to the emergency department for dyspnea, and fall. according to ems they were called because the patient had fallen in the bathroom and he was stuck on the floor. At their original assessment patient was found to be hypoxic and tachypneaic. patient was unsure if he hit his head. Patient is on coumadin and plavix. Upon initial evaluation in the emergency department patient is virtually non-verbal but vital signs showed no hypoxia. Review of Systems Unable to obtain: Dementia PD PAST MEDICAL HISTORY - Past Medical History Cardiovascular: Congestive heart failure, Hypertension, High cholesterol, Coronary artery disease, [place], Arrhythmia Respiratory: COPD Neuro: CVA, Head injury, Other Endocrine/Autoimmune: None GI: None : Frequency, Other HEENT: None Psych: Other Musculoskeletal: Osteoarthritis, Gout Derm: None - Past Surgical History Past Surgical History: Yes General: Appendectomy, Other Cardiovascular: Cardiac catheterization, Angioplasty Neuro: Other - Present Medications Home Medications: Ambulatory Orders Medication Instructions Recorded Confirmed Allopurinol 100 mg PO DAILY 10/18/16 05/29/17 Atorvastatin Calcium 20 mg PO DAILY 10/18/16 05/29/17 Risperidone [Risperdal] 1.5 mg PO QPM 10/18/16 05/29/17 Clopidogrel [Plavix] 75 mg PO DAILY #30 tablet 04/25/17 05/29/17 Isosorbide Mononitrate ER [Imdur] 30 mg PO DAILY #30 tablet 04/25/17 05/29/17 Warfarin [Coumadin] 5 mg PO QDWARFARIN #30 tablet 04/25/17 05/29/17 Albuterol 2.5 mg INH DAILY PRN 05/29/17 05/29/17 Budesonide/Formoterol Fumarate 1 puffs INH BID 05/29/17 05/29/17 [Symbicort 160-4.5 Mcg Inhaler] Calcium Carbonate [Tums (Calcium 1,500 mg PO TIDWM 05/29/17 05/29/17 Carbonate 500mg)] Metoprolol Succinate 12.5 mg PO DAILY 05/29/17 05/29/17 Sevelamer [Renagel] 2,400 mg PO TIDWM 05/29/17 05/29/17 Warfarin Sodium [Coumadin] 3 mg PO SUMOWEFR 05/29/17 05/29/17 Warfarin Sodium [Coumadin] 6 mg PO TUTHSA 05/29/17 05/29/17 amLODIPine [Norvasc] 10 mg PO DAILY 05/29/17 05/29/17 Levofloxacin [Levaquin] 750 mg PO DAILY #7 tablet 06/01/17 - Allergies Allergies/Adverse Reactions: Allergies Allergy/AdvReac Type Severity Reaction Status Date / Time No Known Drug Allergies Allergy Verified 06/07/17 23:23 - Social History Does the pt smoke?: No Smoking Status: Never smoker Does the pt drink ETOH?: No Does the pt have substance abuse?: No - Immunizations Immunizations are current?: Yes - POLST Patient has POLST: Yes POLST Status: DNR PD ED PE NORMAL - Vitals Vital signs reviewed: Yes - Neck Neck: Supple, no meningeal sign - Abdomen Abdomen: Soft - Neuro Neuro: No motor deficit PD ED PE EXPANDED - General General: Alert - HEENT HEENT: Atraumatic, Dry mucous membranes - Cardiac Cardiac: Irregularly irregular - Respiratory Respiratory: Rhonchi. No: Distress, Gasping - Abdomen Abdomen: Other (bruising of abdomen) - Extremities Extremities: Right knee (ecchymosis of right lower extremity) - GCS Eye Opening: To Voice Motor: Localizes to Pain Verbal: Confused Total: 12 Results - Vitals Vitals: Vital Signs - 24 hr 06/07/17 06/08/17 23:19 00:38 Temperature 37.6 C H Heart Rate 94 81 Respiratory 18 22 Rate Blood Pressure 138/63 H 114/65 O2 Saturation 95 92 Oxygen O2 Source [With Activity] Room air O2 Source Room air - EKG (time done) 2324 Rate: Rate (enter#) (91) Rhythm: NSR [place]: Anterior hemiblock Intervals: RBBB Ischemia: ST depression Compare to prior EKG: Unchanged from prior EKG - Labs Labs: Laboratory Tests 06/07/17 06/07/17 06/07/17 23:30 23:30 23:30 WBC 7.5 RBC 3.26 L Hgb 10.0 L Hct 30.2 L MCV 92.6 MCH 30.6 MCHC 33.0 RDW 13.1 Plt Count 109 L MPV 8.2 Neut # Not Reportable Lymph # Not Reportable [place] # Not Reportable Eos # Not Reportable Baso # Not Reportable Absolute Nucleated RBC Not Reportable Total Counted 100 Band Neuts % (Manual) 6 Abnorm Lymph % (Manual) 0 Nucleated RBC % Not Reportable Neutrophils # (Manual) 5.5 Lymphocytes # (Manual) 1.3 L Monocytes # (Manual) 0.6 Eosinophils # (Manual) 0.2 Basophils # (Manual) 0.0 Differential Comment MANUAL DIFFERENTIAL Platelet Estimate DECREASED (<130,000) RBC Morph Micro Appear NORMAL APPEARANCE PT 20.1 H INR 1.8 H APTT 33.7 H Sodium 133 L Potassium 3.9 Chloride 95 L Carbon Dioxide 21 Anion Gap 17.0 H BUN 22 H Creatinine 2.5 H Estimated GFR (MDRD) 25 L Glucose 146 H Calcium 12.3 H* Ionized Calcium Phosphorus 3.1 Magnesium 1.5 L Total Bilirubin 0.4 AST 57 H ALT 45 Alkaline Phosphatase 83 Total Creatine Kinase 102 Troponin I B-Natriuretic Peptide Total Protein 6.2 L Albumin 2.9 L Globulin 3.3 Albumin/Globulin Ratio 0.9 L Lipase 26 Influenza A (Rapid) Influenza B (Rapid) Influenza Types A,B Ag 06/07/17 06/07/17 06/07/17 23:30 23:30 23:32 WBC RBC Hgb Hct MCV MCH MCHC RDW Plt Count MPV Neut # Lymph # [place] # Eos # Baso # Absolute Nucleated RBC Total Counted Band Neuts % (Manual) Abnorm Lymph % (Manual) Nucleated RBC % Neutrophils # (Manual) Lymphocytes # (Manual) Monocytes # (Manual) Eosinophils # (Manual) Basophils # (Manual) Differential Comment Platelet Estimate RBC Morph Micro Appear PT INR APTT Sodium Potassium Chloride Carbon Dioxide Anion Gap BUN Creatinine Estimated GFR (MDRD) Glucose Calcium Ionized Calcium Phosphorus Magnesium Total Bilirubin AST ALT Alkaline Phosphatase Total Creatine Kinase Troponin I 0.11 B-Natriuretic Peptide 171 H Total Protein Albumin Globulin Albumin/Globulin Ratio Lipase Influenza A (Rapid) Negative Influenza B (Rapid) Negative Influenza Types A,B Ag - 06/08/17 01:10 WBC RBC Hgb Hct MCV MCH MCHC RDW Plt Count MPV Neut # Lymph # [place] # Eos # Baso # Absolute Nucleated RBC Total Counted Band Neuts % (Manual) Abnorm Lymph % (Manual) Nucleated RBC % Neutrophils # (Manual) Lymphocytes # (Manual) Monocytes # (Manual) Eosinophils # (Manual) Basophils # (Manual) Differential Comment Platelet Estimate RBC Morph Micro Appear PT INR APTT Sodium Potassium Chloride Carbon Dioxide Anion Gap BUN Creatinine Estimated GFR (MDRD) Glucose Calcium 11.8 H Ionized Calcium NO Phosphorus Magnesium Total Bilirubin AST ALT Alkaline Phosphatase Total Creatine Kinase Troponin I B-Natriuretic Peptide Total Protein Albumin Globulin Albumin/Globulin Ratio Lipase Influenza A (Rapid) Influenza B (Rapid) Influenza Types A,B Ag - Rads (name of study) ct head Radiology: Final report received (no acute changes) chest x-ray Radiology: Final report received (likely mediastinal mass) PD MEDICAL DECISION MAKING - ED course Complexity details: reviewed old records, reviewed results, re-evaluated patient , considered differential, d/w showroom sales consultant ED course: Patient was seen and examined at bedside. IV access was gained and labs were drawn. ekg was performed. chest x-ray was ordered. patient was treated with a fluid bolus. patient's radiology findings were discussed with radiologist. When patient's labs came back the case was discussed with the hospitalist and patient was admitted for further evaluation and care. Departure - Departure Disposition: 66 [facility] DC/Xfer Clinical Impression: Cognitive impairment, Hypercalcemia, Renal insufficiency, Abnormal EKG Condition: Stable
--- NOTE | 2017-06-08 00:39 | XRAY Report ---
EXAM: CHEST RADIOGRAPHY EXAM DATE: 06/08/2017 12:01 AM. CLINICAL HISTORY: Hypoxia, history of pneumonia. COMPARISON: 05/29/2017, 04/19/2017, 01/02/2017 . TECHNIQUE: 1 view. FINDINGS: Lungs/Pleura: Right suprahilar opacity appears somewhat masslike. Left lung grossly clear given body habitus. No gross pneumothorax or large effusion. Mediastinum: Stable mild cardiomegaly. No mediastinal shift. Other: None. IMPRESSION: 1. Right suprahilar opacity appears somewhat masslike. While pneumonia or confluent edema remains pos sible. Follow-up chest CT should be considered to exclude neoplasm. 2. Cardiomegaly without overt heart failure. Results and recommendations discussed with Dr. Knapp. KARINA Referring Provider Line: [phone] SITE ID: [id number]
--- NOTE | 2017-06-08 00:50 | CT Report ---
EXAM: CT HEAD EXAM DATE: 06/08/2017 12:00 AM. CLINICAL HISTORY: Hypoxia, fall, on anticoagulation. COMPARISON: Brain CT from 04/19/2017. TECHNIQUE: Multiaxial CT images were obtained from the foramen magnum to the vertex. Reformats: Coron al. IV contrast: None. In accordance with CT protocol optimization, one or more of the following dose reduction techniques w ere utilized for this exam: automated exposure control, adjustment of mA and/or KV based on patient s ize, or use of iterative reconstructive technique. FINDINGS: Parenchyma: Extensive bilateral parietal encephalomalacia is stable. Chronic lacunar infarcts are aga in noted in the bilateral basal ganglia. No intraparenchymal hemorrhage. No evidence of mass, midline shift, or CT findings of acute infarction. Benson-white differentiation is distinct elsewhere in the b rain. Extraaxial Spaces: Normal for age. No subdural or epidural collections identified. Ventricles: The ventricles and cortical sulci are moderately enlarged, consistent with age-related ti ssue loss. Sinuses and orbits: Imaged paranasal sinuses, orbits, and mastoids show no significant abnormality. Bones: No evidence of fracture or calvarial defect. Other: Mild intracranial atherosclerosis is noted. IMPRESSION: 1. No acute intracranial process. 2. Stable extensive bilateral parietal encephalomalacia compared to the brain CT from 04/19/2017. [facility] Referring Provider Line: [phone] SITE ID: [id number]
[2017-06-08] MEDS ORDERED: ACETAMINOPHEN 325 MG TABLET PO PRN (01:13)
[2017-06-08] MEDS ORDERED: ONDANSETRON 4 MG/2 ML VIAL IVP PRN (01:13)
[2017-06-08 01:30] LABS: CALCIUM 11.8 mg/dL (8.5-10.3)
[2017-06-08] MEDS ORDERED: PIPERACILLIN/TAZOBACTAM 3.375 GM in SODIUM CHLORIDE 0.9% MINIBAG 100 ML IV SCH (02:00)
[2017-06-08] MEDS: IPRATROPIUM/ALBUTEROL 3 ML NEB INH SCH ×4 (02:20→22:00)
[2017-06-08] MEDS: BUDESONIDE 0.5 MG/2 ML NEB INH SCH ×3 (02:20→22:00)
[2017-06-08] MEDS: MIN OIL/DIMETHICON/COCONUT OIL 92 GM TUBE TOP PRN (02:47)
[2017-06-08] MEDS: PIPERACILLIN/TAZOBACTAM 2.25 GM in SODIUM CHLORIDE 0.9% MINIBAG 100 ML IV SCH ×3 (02:47→17:34)
[2017-06-08] MEDS: MORPHINE 2 MG/ML CARPUJECT IVP PRN (03:16)
[2017-06-08] MEDS: SODIUM CHLORIDE FLUSH 0.9% 10 ML SYRINGE IVP SCH ×3 (03:18→21:35)
--- NOTE | 2017-06-08 03:37 | CT Preliminary Report ---
Exam: CT CHEST W/O IMPRESSION: 1. 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 2. Right hilar and mediastinal metastatic adenopathy. 3. Diffuse hepatic nodules, highly concerning for metastatic disease. 4. Severe coronary calcifications and mild cardiomegaly. No overt heart failure currently. [facility] SITE ID: [id number]
--- NOTE | 2017-06-08 03:43 | CT Report ---
EXAM: CT CHEST EXAM DATE: 06/08/2017 02:00 AM. CLINICAL HISTORY: Right suprahilar mass. COMPARISONS: Chest x-rays same day. TECHNIQUE: Routine helical CT imaging was performed through the chest. IV contrast: None. Reconstruct ions: Coronal and sagittal. In accordance with CT protocol optimization, one or more of the following dose reduction techniques w ere utilized for this exam: automated exposure control, adjustment of mA and/or KV based on patient s ize, or use of iterative reconstructive technique. FINDINGS: Lungs/Pleura: Medial right upper lobe mass which abuts the mediastinum measures approximately 53 x 33 mm on image 20 series 4 and extends approximately 30 mm in craniocaudal dimension on coronal image 3 8. Distal to the mass in the right upper lobe parenchyma there is interlobular septal nodular thicken ing, consistent with carcinomatosis. Ground-glass density is likely tumor infiltration as well. Clear left lung. Mediastinum: As above, the medial right upper lobe mass abuts the mediastinum. There is a large right hilar lymph node suspected, not well-evaluated due to lack of IV contrast but grossly measures 32 x 39 mm on image 30. Enlarged pretracheal lymph node on image 18 measures 19 mm in short axis. Severe coronary calcifications. Mild cardiomegaly. No aortic aneurysm. Bones: No aggressive appearing bone lesion seen. Minimal multilevel superior endplate compression def ormities appear old. Visualized Abdomen: Numerous small hypodense nodules scattered throughout the liver, highly concernin g for metastatic disease. Other: None. IMPRESSION: 1. 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 2. Right hilar and mediastinal probable metastatic adenopathy. 3. Diffuse hepatic nodules, highly concerning for metastatic disease. 4. Severe coronary calcifications and mild cardiomegaly. No overt heart failure currently. [facility] Referring Provider Line: [phone] SITE ID: [id number]
[2017-06-08] MEDS: metroNIDAZOLE 500 MG/100 ML 500 MG/100 ML BAG IV SCH ×3 (05:46→21:35)
[2017-06-08] MEDS ORDERED: SODIUM CHLORIDE 0.9% 250 ML IV ONE (06:09)
[2017-06-08] MEDS ORDERED: CALCITONIN NASAL SPRAY NAS SCH (07:00)
[2017-06-08] MEDS ORDERED: ZOLEDRONIC ACID 3 MG in SODIUM CHLORIDE 0.9% 100ML 100 ML IV SCH (07:00)
[2017-06-08] MEDS ORDERED: ZOLEDRONIC ACID IV ONE (08:00)
[2017-06-08] MEDS ORDERED: SEVELAMER 800 MG TABLET PO SCH (08:00)
[2017-06-08] MEDS: amLODIPine 5 MG TABLET PO SCH (08:16)
[2017-06-08] MEDS: ATORVASTATIN 10 MG TABLET PO SCH (08:16)
[2017-06-08] MEDS: ISOSORBIDE MONONITRATE ER 30 MG TABLET PO SCH (08:16)
[2017-06-08] MEDS: CLOPIDOGREL 75 MG TABLET PO SCH (08:16)
[2017-06-08] MEDS: ALLOPURINOL 100 MG TABLET PO SCH (08:17)
[2017-06-08] MEDS: CALCITONIN NASAL SPRAY NAS SCH (08:21)
[2017-06-08] MEDS: METOPROLOL SUCCINATE 25 MG TABLET PO SCH (08:25)
[2017-06-08] MEDS: POLYETHYLENE GLYCOL 3350 17 GM PACKET PO SCH (08:25)
--- NOTE | 2017-06-08 11:55 | HISTORY & PHYSICAL EXAMINATION ---
DATE OF SERVICE: 06/08/2017 Physician: Deidra Peña MD DATE OF ADMISSION: 06/08/2017 CHIEF COMPLAINT: Fall. SOURCE OF HISTORY: Per medical record review and per ER report, the patient on admission was confused and could not provide any meaningful history. HISTORY OF PRESENT ILLNESS: The patient is a 72-year-old, chronically ill, white male who was brought into [facility] ER by ambulance after he suffered a fall at his home. Reportedly, he fell in the bathroom and could not get up. The patient lives with his sister, who called the ambulance. Per EMS report the patient appeared pale, diaphoretic, had low oxygen saturations in the mid 80s, and had increased respiratory rate above 30. His blood pressure was borderline low around 90-100 systolic. Upon presentation to the ER, the patient's vital signs actually were stable. He did have slightly elevated temperature at 37.6 Celsius. His heart rate was between 80 and 90. Blood pressure was 130/60, respiratory rate was 18 and he saturated 95% on room air. When I interviewed the patient, he could not offer any meaningful history. He appeared pleasantly confused. He denied all complaints and he told me that he did not know how he ended up in the ER. He confirmed, however, that he lives with his sister. He ambulates with a walker. Reviewing the electronic medical record, this patient was seen frequently for falls in the past and he was admitted twice recently with different issues. In particular, in March 2017, he was admitted with non-ST elevation myocardial infarction. At that time, he also had a fall and he was observed with altered mental status. He also was felt to have congestive heart failure in the background and he received conservative treatment for cardiac ischemia. Notably, the patient does have advanced renal failure and he was not a candidate for invasive evaluation. Subsequently, the patient was readmitted at the end of May, was hospitalized between May 29 and June 01, and was treated for healthcare-associated pneumonia. Usually he has impaired renal function with creatinine baseline around 2. Regarding his x-rays , during the past few times he was seen, he had mild infiltrates on chest x-rays. Mostly the radiologist described it as CHF like pattern. Either way, the patient did complete treatment for pneumonia. Initially in the hospital, he was treated for healthcare-associated pneumonia and then he was discharged on Levaquin to complete the treatment. It is also pertinent that the patient takes Coumadin. He does have a history of cerebrovascular accident, plus he has history of some kind of arrhythmia. No further details available in the medical record. Regarding the ER workup today, the patient was found with numerous abnormalities including hypercalcemia. Calcium was 12.3. Corrected calcium would be even higher, as the albumin was 2.9. Creatinine was 2.5, above the patient's baseline. INR was 1.8, almost therapeutic. Platelet count was 109, hemoglobin 10. A CT scan of the brain was checked as the patient fell and possibly hit his head. The CT scan showed stable encephalomalacia, no acute abnormality. EKG showed right bundle branch block, which was unchanged compared to previous and troponin was negative. A chest x-ray showed a large, mass-like infiltrate in the right suprahilar region. PAST MEDICAL HISTORY 1. Hypertension. 2. Congestive heart failure. Last echocardiogram was in March 2017; showed left ventricular hypertrophy, normal ejection fraction, mild aortic stenosis, mild to moderate aortic regurgitation. 3. Coronary artery disease/recent history of non-ST elevation myocardial infarction which was treated conservatively. 4. Chronic renal failure, creatinine baseline around 2. The patient has history of being on hemodialysis. 5. History of frequent falls. 6. Dyslipidemia. 7. History of cerebrovascular accident. 8. COPD, no history of oxygen dependence. 9. Osteoarthritis. 10. Gout. OUTPATIENT MEDICATIONS 1. Amlodipine. 2. Renagel. 3. Risperdal. 4. Metoprolol. 5. Imdur. 6. Plavix. 7. Atorvastatin. 8. Allopurinol. 9. Coumadin. 10. Calcium supplements. 11. Budesonide formoterol inhaler. 12. Albuterol inhaler. ALLERGIES: NO KNOWN DRUG ALLERGIES. CODE STATUS: DO NOT RESUSCITATE/DO NOT INTUBATE per prior medical record. SOCIAL HISTORY: The patient could not tell me much about his social history. It seems that he lives with his sister who assists him with activities of daily living. He is a nonsmoker, ambulates with a walker. PRIMARY CARE PROVIDER: Suzanna Frey FAMILY HISTORY: The patient could not provide. He had altered mental status. REVIEW OF SYSTEMS: I attempted 12-point review. The patient was pleasantly confused. He denied all complaints. The 12-point review was negative. PHYSICAL EXAMINATION VITAL SIGNS: Please see listed above at history of present illness. GENERAL: The patient is a well-developed, elderly male, who appeared chronically ill, but was not in acute distress. SKIN: With pallor. No jaundice. Multiple bruises on the extremities and some petechial lesions on the feet. MUSCULOSKELETAL: Multiple bruises in different healing stages on the lower extremities and also on the abdominal wall. HEENT: Oral mucosa dry. LYMPHATIC: Pitting pedal edema up to the mid viadl, bilaterally symmetric with signs of chronic venous stasis. CARDIOVASCULAR: S1, S2, regular with a systolic murmur best heard at the second parasternal auscultation point on the left side. RESPIRATORY: With mild expiratory wheezes. No increased work of breathing. Appeared comfortable on room air. Decreased air entry above the bases. NEUROLOGIC: The patient was alert, oriented to self and situation. Appeared pleasantly confused, was neurologically nonfocal. PSYCHIATRIC: Cooperative. No agitation. ABDOMEN: Distended, obese, nontender. Bowel tones heard. ASSESSMENT AND PLAN: The patient is a 72-year-old male with multiple chronic problems, who is getting admitted now for the third time in less than 2 months. Notably, the patient does suffer frequent falls and he is getting admitted from home. He is still on Coumadin anticoagulation and it should definitely be considered whether he is a candidate for Coumadin, as suffering frequent falls and being anticoagulated, the risk of life- threatening bleed would likely outweigh the benefit. On admission, the patient is found with numerous abnormalities including encephalopathy, large lung infiltrate, hypercalcemia and acute kidney injury on top of chronic renal failure. ACTIVE ISSUES/DIAGNOSES/PROBLEMS BY PROBLEM 1. Encephalopathy, likely multifactorial, could be metabolic in the setting of hypercalcemia plus in the setting of transient hypoxia, which I suppose could be the result of aspiration. Stroke was ruled out. Contributing to encephalopathy is likely underlying advancing dementia. 2. Lung infiltrate/hypoxia and increased work of breathing per emergency medical services; however, hypoxia resolved by the patient got to the ER. Considering the patient's chronically impaired status, history of stroke, he most likely aspirates and that could be partly responsible for his falls, frequent admissions and declining status. In any case, the patient has a large infiltrate, which is described by the radiologist as mass-like. On prior x-rays, he did have smaller and somewhat milder infiltrates. Overall, the lung infiltrate could be secondary to aspiration pneumonia, healthcare-associated pneumonia, plus/minus underlying malignancy. 3. Electrolyte abnormalities/hypercalcemia. Notably, the patient was on calcium supplements, in particular 1500 mg three times daily, which is quite a high dose, especially considering his renal insufficiency. He already received IV hydration in the ER. Repeat calcium is pending. 4. Chronic anemia. No bleeding complication, unchanged blood counts. 5. Protein malnutrition/hypoalbuminemia. 6. Acute kidney injury in the setting of dehydration. 7. Therapeutic anticoagulation, on Coumadin. As mentioned, the patient might not be the best candidate to continue Coumadin. 8. Recently treated for non-ST elevation myocardial infarction, has history of underlying congestive heart failure with left ventricular hypertrophy and diastolic dysfunction; today appears with stable cardiac status as far as troponin was negative and electrocardiogram did not show acute ischemia, has underlying right bundle branch block. 9. Frequent falls. The patient lives at home with his elderly sister. He might require higher level of care, either at home or in a facility than what he currently receives. Considering goals of care palliative care evaluation could be appropriate , especially if the patient has a new problem of aspiration/possible malignancy. PLAN AND ORDERS 1. The patient is getting admitted as inpatient. He received IV hydration for hypercalcemia. We will repeat calcium with ionized calcium and we will hold calcium supplements. If needed, then hypercalcemia can be further treated. That will depend on repeat calcium. 2. Regarding suspected aspiration, I will treat with Zosyn and Flagyl, ordered speech therapy/swallow evaluation. 3. We will continue treatment with small volume nebulizers, incentive spirometry and aspiration precautions. Inhaled corticosteroids. If respiratory status gets worse with wheezing, suggesting a COPD exacerbation, then IV steroids could be considered. At this point, wheezing was not significant to consider IV steroids and I will continue with inhaled. 4. To further characterize the lung lesion which could be a mass, I ordered CT scan of the chest. This will be without contrast, as the patient has renal failure. 5. Regarding acute kidney injury/chronic renal failure, gentle hydration will be given. 6. Regarding therapeutic Coumadin anticoagulation, I think there is quite a contraindication to continue Coumadin, given that the patient does suffer frequent falls and, on top of that, he has increased bleeding risk secondary to thrombocytopenia and secondary to impaired renal function and advanced age. 7. For stroke protection, we will continue Plavix and statin. 8. Code status is DO NOT RESUSCITATE. 9. I will request a social work consult, physical therapy evaluation, occupational therapy evaluation and palliative care consult as well. ATTESTATION: In good wanda, I certify that the reasonable expectation is that this patient will be admitted to the hospital and stay inpatient for more than 48 hours; however, he will be likely discharged home or to another facility within 96 hours. Time spent with this admission was 65 minutes. TD: 06/08/2017 03:22 NELL
[2017-06-08] MEDS: SODIUM CHLORIDE 0.9% 500 ML IV PRN (16:40)
[2017-06-08] MEDS: risperiDONE 1 MG TABLET PO SCH (21:35)
[2017-06-09] MEDS: MIN OIL/DIMETHICON/COCONUT OIL 92 GM TUBE TOP PRN (02:10)
[2017-06-09] MEDS: PIPERACILLIN/TAZOBACTAM 2.25 GM in SODIUM CHLORIDE 0.9% MINIBAG 100 ML IV SCH ×3 (02:10→19:05)
[2017-06-09] MEDS: metroNIDAZOLE 500 MG/100 ML 500 MG/100 ML BAG IV SCH ×3 (05:16→21:57)
[2017-06-09] MEDS: SODIUM CHLORIDE FLUSH 0.9% 10 ML SYRINGE IVP SCH ×3 (05:17→19:06)
--- NOTE | 2017-06-09 07:42 | PROVIDER PROGRESS NOTE ---
Subjective - Prog Note Date Prog Note Date: 06/09/17 Prog Note Time: 07:42 - Subjective Subjective: He is still not really alert enough to converse. He opens his eyes, mumbles but doesn't have spontaneous conversation. This am more wheezing and increased respiratory effort. Repeat chest x-ray has the stable right hilar infiltrate as well as right lung infiltrate. There is been no change. Respiratory therapy has been working with him for oxygen need, nebulizers. He is improved slightly with less tachypnea and work of breathing. I have spoken to sister Camille at [phone]. 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 By chance, Camille was speaking to his primary care provider on the phone. His primary care provider [facility] through [facility], Dr Perez, and she sees him once a year. He then sees his local PCP more often. Camille was able to share advance care plans for Manjit. His health has deteriorated substantially over the last few months and definitely over the last few years. 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 When I asked if she wanted me to proceed with workup for the lung mass she is definite in saying no. Manjit has not wanted further interventions. He is gotten depressed with his disease load. When I talked about BiPAP, transferred to the ICU and more aggressive intervention she is also firm in stating that he would not want that. After hung up with her, I was able to speak to his primary care provider through the [facility]. Because she only sees them once a year she was unaware of all the interventions he has had between September of last year and now. So I was able to bring her up-to-date. Current Medications - Current Medications Current Medications: Active Medications Acetaminophen (Tylenol) 650 mg PO Q4HR PRN PRN Reason: Pain 1 to 4 Albuterol/Ipratropium (Duoneb) 3 ml INH Q8H [facility] Last Admin: 06/08/17 22:00 Dose: 3 ml Allopurinol (Zyloprim) 100 mg PO DAILY [facility] Last Admin: 06/08/17 08:17 Dose: 100 mg Amlodipine Besylate (Norvasc) 10 mg PO DAILY [facility] Last Admin: 06/08/17 08:16 Dose: 10 mg Atorvastatin Calcium (Lipitor) 20 mg PO DAILY [facility] Last Admin: 06/08/17 08:16 Dose: 20 mg Budesonide (Pulmicort) 0.5 mg INH RTBID [facility] Last Admin: 06/08/17 22:00 Dose: 0.5 mg Calcitonin [place] (Fortical) 1 sprays DANIELLE DAILY [facility] Last Admin: 06/08/17 08:21 Dose: 1 spray Clopidogrel Bisulfate (Plavix) 75 mg PO DAILY [facility] Last Admin: 06/08/17 08:16 Dose: 75 mg Metronidazole (Flagyl 500 Mg/100 Ml) 500 mg in 100 mls @ 100 mls/hr IV Q8HR [facility] Last Infusion: 06/09/17 06:18 Dose: Infused Piperacillin Sod/Tazobactam (Sod 2.25 gm/ Sodium Chloride) 100 mls @ 200 mls/ hr IV Q8H [facility] Last Infusion: 06/09/17 03:00 Dose: Infused Sodium Chloride (Normal Saline 0.9%) 500 mls @ 10 mls/hr IV .Q48H PRN PRN Reason: Peripheral Line Protocol Last Admin: 06/08/17 16:40 Dose: 10 mls/hr Isosorbide Mononitrate (Imdur) 30 mg PO DAILY [facility] Last Admin: 06/08/17 08:16 Dose: 30 mg Metoprolol Succinate (Toprol Xl) 12.5 mg PO DAILY [facility] Last Admin: 06/08/17 08:25 Dose: 12.5 mg Mineral Oil (Cavilon) 1 applic TOP PRN PRN PRN Reason: Skin Care Last Admin: 06/09/17 02:10 Dose: 1 ea Morphine Sulfate (Morphine (Carpuject)) 2 mg IVP Q2HR PRN PRN Reason: Pain 8 to 10 Last Admin: 06/08/17 03:16 Dose: 2 mg Ondansetron HCl (Zofran Inj) 4 mg IVP Q6HR PRN PRN Reason: Nausea / Vomiting Polyethylene Glycol (Miralax) 17 gm PO DAILY [facility] Last Admin: 06/08/17 08:25 Dose: 17 gm Risperidone (Risperdal) 1.5 mg PO QPM [facility] Last Admin: 06/08/17 21:35 Dose: 1.5 mg Sodium Chloride (Normal Saline Flush 0.9%) 10 ml IVP PRN PRN PRN Reason: NEEDED PER PROVIDER ORDERS Sodium Chloride (Normal Saline Flush 0.9%) 10 ml IVP Q8HR [facility] Last Admin: 06/09/17 05:17 Dose: 10 ml Allopurinol 100 mg PO DAILY 10/18/16 Atorvastatin Calcium 20 mg PO DAILY 10/18/16 Risperidone [Risperdal] 1.5 mg PO QPM 10/18/16 Albuterol 2.5 mg INH DAILY PRN 05/29/17 Budesonide/Formoterol Fumarate [Symbicort 160-4.5 Mcg Inhaler] 1 puffs INH BID 05/29/17 Calcium Carbonate [Tums (Calcium Carbonate 500mg)] 1,500 mg PO TIDWM 05/29/17 Metoprolol Succinate 12.5 mg PO DAILY 05/29/17 Sevelamer [Renagel] 2,400 mg PO TIDWM 05/29/17 Warfarin Sodium [Coumadin] 3 mg PO SUMOWEFR 05/29/17 Warfarin Sodium [Coumadin] 6 mg PO TUTHSA 05/29/17 amLODIPine [Norvasc] 10 mg PO DAILY 05/29/17 Objective - Vital Signs/Intake & Output Reviewed Vital Signs: Yes Vital Signs: Vital Signs x48h Temp Pulse Resp BP Pulse Ox 06/09/17 00:07 37.3 C 76 18 149/50 H 92 Intake & Output: Intake & Output 06/06/17 06/07/17 06/08/17 06/09/17 23:59 23:59 23:59 23:59 Intake Total 1661 200 Balance 1661 200 - Objective General Appearance: positive: Moderate distress (with tachypnea and wheezing), Lethargic Eyes Bilateral: positive: PERRL, EOMI ENT: positive: Dry mucous membranes Neck: positive: No JVD. negative: Lymphadenopathy (R), Lymphadenopathy (L), Stiff neck, Carotid bruit Respiratory: positive: Chest non-tender, Wheezes, Rhonchi, Other (tachypnea, dull bases) Cardiovascular: positive: Regular rate & rhythm, Systolic murmur. negative: Gallop/S4, Friction rub Abdomen: positive: Non-tender, Nml bowel sounds, No distention. negative: Guarding, Rebound Skin: positive: Warm, Dry Neurologic/Psychiatric: positive: CN's nml (2-12), Motor nml (but weak and can' t follow commands), Disoriented to person, Disoriented to place, Disoriented to time, Other (mumbling) - Lab Results Fish Bones: 06/09/17 10:00 06/09/17 10:00 Assessment/Plan - Problem List (1) Metabolic encephalopathy Impression: multifactorial causes: hypercalcemia, pneumonia, hypoxia. He has improved minimally with treatment. Calcium now nml. Pneumonia not responding to tx. Increaed work of breathing. With the rapidity of the right lung mass growth and mets to liver, I wonder if he has mets to brain. CT of head on admit was negative except for the chronic encephalomalacia and chronic lacunar infarct. I don't think I can get an MRI since he won't be able to be still for 45 minutes. continue to treat pneumonia and hydrate. (2) Postobstructive pneumonia Impression: most likely from a neoplasm according to how the CT of chest looks and the liver hits. I have reviewed the case with his PCP, Dr. Perez. She looked that the [facility] report [facility] and is was a nml CXR.I have reviewed our films with Dr manrique and they may be a small change from last month using the retrospective scope. But really wasn't visible. So may be small cell lung ca. Spiked a fever this am. Not improving with a stable CXR. he is also being treated as aspiration. Blood cultures are negative. Add steroids. continue the abx. Zosyn and Flagyle Day #2. (3) Hypercalcemia Impression: received zometa and calcitonin with good results. Calcium nml today. But no improvement in JOI or his mentation. continue to monitor but no further tx for now. (4) Acute on chronic renal failure Impression: getting slightly worse not better. He has needed dialysis in the past. Sister says won't do it again. on IVF. watch for fluid overload. continue to monitor. Qualifiers: Acute renal failure type: unspecified Chronic kidney disease stage: stage 3 (moderate) Qualified Code(s): N17.9 - Acute kidney failure, unspecified; N18.3 - Chronic kidney disease, stage 3 (moderate); N18.3 - Chronic kidney disease, stage 3 (moderate) (5) CAD (coronary artery disease), [place] coronary artery Impression: with hx of diastolic CHF. Had a troponin of 0.11 on admission. Recheck for today but, again, sister is asking us to pursue measures that would make him confortable. he is not to go to ICU or be transferred to intervention. Qualifiers: [place] vs. transplanted heart: [place] heart (6) Cognitive impairment Impression: sister explains he has lost quite a bit of function from his previous aneurysm bleed and repair and also has strokes on CT. no intervention other than to note the impact it has on his above co- morbidities. I am hold off on PT until he wakes up more.
[2017-06-09] MEDS: IPRATROPIUM/ALBUTEROL 3 ML NEB INH SCH ×2 (08:57→17:57)
[2017-06-09] MEDS: BUDESONIDE 0.5 MG/2 ML NEB INH SCH ×2 (08:57→17:57)
[2017-06-09] MEDS: ATORVASTATIN 10 MG TABLET PO SCH (09:40)
[2017-06-09] MEDS: amLODIPine 5 MG TABLET PO SCH (09:40)
[2017-06-09] MEDS: ALLOPURINOL 100 MG TABLET PO SCH (09:40)
[2017-06-09] MEDS: ISOSORBIDE MONONITRATE ER 30 MG TABLET PO SCH (09:41)
[2017-06-09] MEDS: CLOPIDOGREL 75 MG TABLET PO SCH (09:41)
[2017-06-09] MEDS: METOPROLOL SUCCINATE 25 MG TABLET PO SCH (09:41)
[2017-06-09] MEDS: POLYETHYLENE GLYCOL 3350 17 GM PACKET PO SCH (09:42)
[2017-06-09] MEDS: CALCITONIN NASAL SPRAY NAS SCH (09:44)
[2017-06-09 10:16] LABS: VBG BASE EXCESS 2.1 mmol/L (-2 - +2); VBG PCO2 38.1 mmHg (41-51); VBG PH 7.453 (7.31-7.41); VBG PO2 59.4 mmHg (25-47); VBG TOTAL CO2 27.2 mmol/L (24-29)
[2017-06-09 10:22] LABS: BASOPHILS % (AUTO) 0.4 %; EOSINOPHILS # (AUTO) 0.1 10^3/uL (0.0-0.7); EOSINOPHILS % (AUTO) 1.9 %; HGB - HEMOGLOBIN 10.1 g/dL (14.0-18.0); LYMPHOCYTES # (AUTO) 0.3 10^3/uL (1.5-3.5); LYMPHOCYTES % (AUTO) 5.3 %; MEAN CORPUSCULAR HEMOGLOBIN 31.4 pg (27.0-31.0); MEAN CORPUSCULAR HGB CONC 34.3 g/dL (32.0-36.0); MEAN CORPUSCULAR VOLUME 91.5 fL (80.0-94.0); MEAN PLATELET VOLUME 8.1 fL (7.4-11.4); MONOCYTES # (AUTO) 0.7 10^3/uL (0.0-1.0); MONOCYTES % (AUTO) 11.7 %; NEUTROPHILS # (AUTO) 4.7 10^3/uL (1.5-6.6); NEUTROPHILS % (AUTO) 80.7 %; PLT - PLATELET COUNT 102 10^3/uL (130-450); RED BLOOD COUNT 3.21 10^6/uL (4.70-6.10); RED CELL DISTRIBUTION WIDTH 13.6 % (12.0-15.0); WHITE BLOOD COUNT 5.9 x10^3/uL (4.8-10.8)
[2017-06-09 10:28] LABS: CREATININE 2.7 mg/dL (0.6-1.2)
--- NOTE | 2017-06-09 10:45 | XRAY Report ---
FRONTAL CHEST: 06/09/2017 CLINICAL INDICATION: Shortness of breath, hypoxia, increasing respiratory effort. COMPARISON: Plain film 06/07/2017, chest CT 06/08/2017. FINDINGS: Frontal view of the chest demonstrates stable right suprahilar parenchymal disease. The cardiac silhouette is mildly enlarged. No effusion or pneumothorax is present. IMPRESSION: STABLE RIGHT SUPRAHILAR PARENCHYMAL OPACITY. NO NEW CONSOLIDATION. TD: 06/09/2017 10:44
[2017-06-09] MEDS ORDERED: levoFLOXacin 750 MG/150 ML 750 MG/150 ML BAG IV SCH (19:00)
[2017-06-09] MEDS: risperiDONE 1 MG TABLET PO SCH (20:57)
[2017-06-10] MEDS ORDERED: ACETAMINOPHEN 1,000 MG/100 ML 100 ML IV PRN (00:02)
[2017-06-10] MEDS: PIPERACILLIN/TAZOBACTAM 2.25 GM in SODIUM CHLORIDE 0.9% MINIBAG 100 ML IV SCH ×3 (01:26→17:08)
[2017-06-10] MEDS: IPRATROPIUM/ALBUTEROL 3 ML NEB INH SCH ×4 (02:08→23:08)
[2017-06-10] MEDS: metroNIDAZOLE 500 MG/100 ML 500 MG/100 ML BAG IV SCH ×3 (05:21→21:01)
[2017-06-10] MEDS: SODIUM CHLORIDE 0.9% 500 ML IV PRN (05:21)
[2017-06-10] MEDS: SODIUM CHLORIDE FLUSH 0.9% 10 ML SYRINGE IVP SCH ×3 (05:22→20:53)
[2017-06-10 06:21] LABS: BASOPHILS % (AUTO) 0.3 %; HGB - HEMOGLOBIN 9.4 g/dL (14.0-18.0); MEAN CORPUSCULAR HEMOGLOBIN 30.8 pg (27.0-31.0); MEAN CORPUSCULAR HGB CONC 33.2 g/dL (32.0-36.0); MEAN CORPUSCULAR VOLUME 92.8 fL (80.0-94.0); MONOCYTES % (AUTO) 14.3 %; NEUTROPHILS % (AUTO) 75.4 %; PLT - PLATELET COUNT 103 10^3/uL (130-450); RED BLOOD COUNT 3.04 10^6/uL (4.70-6.10); RED CELL DISTRIBUTION WIDTH 13.5 % (12.0-15.0); WHITE BLOOD COUNT 6.4 x10^3/uL (4.8-10.8)
[2017-06-10 06:24] LABS: ABNORMAL LYMPHS % (MANUAL) 0 %
[2017-06-10 06:27] LABS: CALCIUM 9.1 mg/dL (8.5-10.3); CREATININE 2.6 mg/dL (0.6-1.2)
--- NOTE | 2017-06-10 06:35 | PROVIDER PROGRESS NOTE ---
Subjective - Prog Note Date Prog Note Date: 06/10/17 Prog Note Time: 06:28 - Subjective Subjective: he is still not very verbal but is up in bed. eyes bright. no resp distress, eating everything the aide is feeding him. shakes head no to my questions of discomfort but I dont' have confidence he is processing. Never the less, much much improved from yesterday. My only new intervention was adding levaquin to his flagyl and zosyn. Current Medications - Current Medications Current Medications: Active Medications Acetaminophen (Tylenol) 650 mg PO Q4HR PRN PRN Reason: Pain 1 to 4 Last Admin: 06/09/17 16:00 Dose: 650 mg Albuterol () 2.5 mg INH Q2H PRN PRN Reason: Wheezing Albuterol/Ipratropium (Duoneb) 3 ml INH Q8H [facility] Last Admin: 06/10/17 07:56 Dose: 3 ml Allopurinol (Zyloprim) 100 mg PO DAILY [facility] Last Admin: 06/09/17 09:40 Dose: 100 mg Amlodipine Besylate (Norvasc) 10 mg PO DAILY [facility] Last Admin: 06/09/17 09:40 Dose: 10 mg Atorvastatin Calcium (Lipitor) 20 mg PO DAILY [facility] Last Admin: 06/09/17 09:40 Dose: 20 mg Budesonide (Pulmicort) 0.5 mg INH RTBID [facility] Last Admin: 06/10/17 07:56 Dose: 0.5 mg Calcitonin [place] (Fortical) 1 sprays DANIELLE DAILY [facility] Last Admin: 06/09/17 09:44 Dose: 1 spray Clopidogrel Bisulfate (Plavix) 75 mg PO DAILY [facility] Last Admin: 06/09/17 09:41 Dose: 75 mg Metronidazole (Flagyl 500 Mg/100 Ml) 500 mg in 100 mls @ 100 mls/hr IV Q8HR [facility] Last Infusion: 06/10/17 06:21 Dose: Infused Piperacillin Sod/Tazobactam (Sod 2.25 gm/ Sodium Chloride) 100 mls @ 200 mls/ hr IV Q8H [facility] Last Infusion: 06/10/17 02:22 Dose: Infused Sodium Chloride (Normal Saline 0.9%) 500 mls @ 10 mls/hr IV .Q48H PRN PRN Reason: Peripheral Line Protocol Last Admin: 06/10/17 05:21 Dose: 10 mls/hr Acetaminophen (Ofirmev) 100 mls @ 400 mls/hr IV Q6HR PRN PRN Reason: PAIN Last Infusion: 06/10/17 01:18 Dose: Infused Levofloxacin (Levaquin 750 Mg/150 Ml) 750 mg in 150 mls @ 100 mls/hr IV Q48H [facility] Isosorbide Mononitrate (Imdur) 30 mg PO DAILY [facility] Last Admin: 06/09/17 09:41 Dose: 30 mg Methylprednisolone Sodium Succinate (Solu-Medrol (125mg Vial)) 125 mg IVP TID [facility] Metoprolol Succinate (Toprol Xl) 12.5 mg PO DAILY [facility] Last Admin: 06/09/17 09:41 Dose: 12.5 mg Mineral Oil (Cavilon) 1 applic TOP PRN PRN PRN Reason: Skin Care Last Admin: 06/09/17 02:10 Dose: 1 ea Morphine Sulfate (Morphine (Carpuject)) 2 mg IVP Q2HR PRN PRN Reason: Pain 8 to 10 Last Admin: 06/08/17 03:16 Dose: 2 mg Ondansetron HCl (Zofran Inj) 4 mg IVP Q6HR PRN PRN Reason: Nausea / Vomiting Polyethylene Glycol (Miralax) 17 gm PO DAILY [facility] Last Admin: 06/09/17 09:42 Dose: 17 gm Risperidone (Risperdal) 1.5 mg PO QPM [facility] Last Admin: 06/09/17 20:57 Dose: 1.5 mg Sodium Chloride (Normal Saline Flush 0.9%) 10 ml IVP PRN PRN PRN Reason: NEEDED PER PROVIDER ORDERS Sodium Chloride (Normal Saline Flush 0.9%) 10 ml IVP Q8HR [facility] Last Admin: 06/10/17 05:22 Dose: Not Given Allopurinol 100 mg PO DAILY 10/18/16 Atorvastatin Calcium 20 mg PO DAILY 10/18/16 Risperidone [Risperdal] 1.5 mg PO QPM 10/18/16 Albuterol 2.5 mg INH DAILY PRN 05/29/17 Budesonide/Formoterol Fumarate [Symbicort 160-4.5 Mcg Inhaler] 1 puffs INH BID 05/29/17 Calcium Carbonate [Tums (Calcium Carbonate 500mg)] 1,500 mg PO TIDWM 05/29/17 Metoprolol Succinate 12.5 mg PO DAILY 05/29/17 Sevelamer [Renagel] 2,400 mg PO TIDWM 05/29/17 Warfarin Sodium [Coumadin] 3 mg PO SUMOWEFR 05/29/17 Warfarin Sodium [Coumadin] 6 mg PO TUTHSA 05/29/17 amLODIPine [Norvasc] 10 mg PO DAILY 05/29/17 Objective - Vital Signs/Intake & Output Reviewed Vital Signs: Yes Vital Signs: Vital Signs x48h Temp Pulse Pulse Resp BP Pulse Ox 06/10/17 02:10 53 L 24 06/09/17 23:51 38.0 C H 88 20 159/69 H 96 Intake & Output: Intake & Output 06/07/17 06/08/17 06/09/17 06/10/17 23:59 23:59 23:59 23:59 Intake Total 1661 990 666.833 Balance 1661 990 666.833 - Objective General Appearance: positive: No acute distress, Alert Eyes Bilateral: positive: PERRL, EOMI ENT: positive: No signs of dehydration Neck: positive: No JVD. negative: Lymphadenopathy (R), Lymphadenopathy (L), Stiff neck, Carotid bruit Respiratory: positive: Chest non-tender, Rhonchi. negative: Wheezes (yesterday he was wheezing off and on with tachypnea, that is all resolved), Rales Cardiovascular: positive: Regular rate & rhythm, Systolic murmur. negative: Gallop/S4, Friction rub Abdomen: positive: Non-tender, No organomegaly, Nml bowel sounds, No distention Skin: positive: Warm, Dry Extremities: positive: No pedal edema - Lab Results Fish Bones: 06/10/17 05:58 06/10/17 05:58 Other Labs: Lab Results x24hrs 06/10/17 06/10/17 06/09/17 Range/Units 05:58 05:58 10:01 WBC 6.4 (4.8-10.8) x10^3/uL RBC 3.04 L (4.70-6.10) 10^6/uL Hgb 9.4 L (14.0-18.0) g/dL Hct 28.2 L (42.0-52.0) % MCV 92.8 (80.0-94.0) fL MCH 30.8 (27.0-31.0) pg MCHC 33.2 (32.0-36.0) g/dL RDW 13.5 (12.0-15.0) % Plt Count 103 L (130-450) 10^3/uL MPV 8.0 (7.4-11.4) fL Neut # (1.5-6.6) 10^3/uL Lymph # (1.5-3.5) 10^3/uL [place] # (0.0-1.0) 10^3/uL Eos # (0.0-0.7) 10^3/uL Baso # (0.0-0.1) 10^3/uL Absolute Nucleated RBC x10^3/uL Nucleated RBC % /100WBC VBG pH 7.453 H (7.31-7.41) VBG pCO2 38.1 L (41-51) mmHg VBG pO2 59.4 H (25-47) mmHg VBG HCO3 26.1 (23-28) mmol/L VBG Total CO2 27.2 (24-29) mmol/L VBG O2 Saturation 92.4 H (60-80) % VBG Base Excess 2.1 H (-2 - +2) mmol/L Sodium 137 (135-145) mmol/L Potassium 4.0 (3.5-5.0) mmol/L Chloride 105 (101-111) mmol/L Carbon Dioxide 23 (21-32) mmol/L Anion Gap 9.0 (6-13) BUN 34 H (6-20) mg/dL Creatinine 2.6 H (0.6-1.2) mg/dL Estimated GFR (MDRD) 24 L (>89) Glucose 105 H (70-100) mg/dL Calcium 9.1 (8.5-10.3) mg/dL Troponin I (<0.49) ng/mL 06/09/17 06/09/17 06/09/17 Range/Units 10:00 10:00 10:00 WBC 5.9 (4.8-10.8) x10^3/uL RBC 3.21 L (4.70-6.10) 10^6/uL Hgb 10.1 L (14.0-18.0) g/dL Hct 29.4 L (42.0-52.0) % MCV 91.5 (80.0-94.0) fL MCH 31.4 H (27.0-31.0) pg MCHC 34.3 (32.0-36.0) g/dL RDW 13.6 (12.0-15.0) % Plt Count 102 L (130-450) 10^3/uL MPV 8.1 (7.4-11.4) fL Neut # 4.7 (1.5-6.6) 10^3/uL Lymph # 0.3 L (1.5-3.5) 10^3/uL [place] # 0.7 (0.0-1.0) 10^3/uL Eos # 0.1 (0.0-0.7) 10^3/uL Baso # 0.0 (0.0-0.1) 10^3/uL Absolute Nucleated RBC 0.01 x10^3/uL Nucleated RBC % 0.2 /100WBC VBG pH (7.31-7.41) VBG pCO2 (41-51) mmHg VBG pO2 (25-47) mmHg VBG HCO3 (23-28) mmol/L VBG Total CO2 (24-29) mmol/L VBG O2 Saturation (60-80) % VBG Base Excess (-2 - +2) mmol/L Sodium 136 (135-145) mmol/L Potassium 3.9 (3.5-5.0) mmol/L Chloride 100 L (101-111) mmol/L Carbon Dioxide 23 (21-32) mmol/L Anion Gap 13.0 (6-13) BUN 32 H (6-20) mg/dL Creatinine 2.7 H (0.6-1.2) mg/dL Estimated GFR (MDRD) 23 L (>89) Glucose 107 H (70-100) mg/dL Calcium 10.0 (8.5-10.3) mg/dL Troponin I 0.45 (<0.49) ng/mL Assessment/Plan - Problem List (1) Metabolic encephalopathy Impression: multifactorial causes: hypercalcemia, pneumonia, hypoxia. He did not improve very much in the first 24 hours. Last night he was worse. This am he is much better but still not very verbal. I don't know his baseline, Calcium now nml. Pneumonia was not responding to tx. Increased work of breathing yesterday. Today better. With the rapidity of the right lung mass growth and mets to liver, I wonder if he has mets to brain. CT of head on admit was negative except for the chronic encephalomalacia and chronic lacunar infarct. I don't think I can get an MRI since he won't be able to be still for 45 minutes. continue to treat pneumonia and hydrate. (2) Postobstructive pneumonia Impression: most likely from a neoplasm according to how the CT of chest looks and the liver hits. I have reviewed the case with his PCP, Dr. Perez on 06/09. She looked at the CXR report from [place] in September and is was a nml CXR.I have reviewed our films with Dr Ivory 06/09 and they may be a small change from last month using the retrospective scope. But really wasn't visible. So may be small cell lung ca bc of the rapid growth. Spiked a fever yesterday am and pm. He was not improving with a stable CXR on recheck yesterday. he is also being treated as aspiration. Blood cultures are negative. Today better. Add steroids continue the abx. Added levaquin Day #2 Zosyn and Flagyl Day #3. (3) Hypercalcemia Impression: received zometa and calcitonin with good results. Calcium nml by 06/09 but no improvement in JOI or his mentation. continue to monitor but no further tx for now. (4) Acute on chronic renal failure Impression: getting slightly worse not better. He has needed dialysis in the past. Sister says won't do it again. on IVF. watch for fluid overload. Creatinie was 2.5 then 2.7 and today 2.6 continue to monitor. Qualifiers: Acute renal failure type: unspecified Chronic kidney disease stage: stage 3 (moderate) Qualified Code(s): N17.9 - Acute kidney failure, unspecified; N18.3 - Chronic kidney disease, stage 3 (moderate); N18.3 - Chronic kidney disease, stage 3 (moderate) (5) CAD (coronary artery disease), [place] coronary artery Impression: with hx of diastolic CHF. Had a troponin of 0.11 on admission. Repeat 0.45. Sister is asking us to pursue measures that would make him comfortable. he is not to go to ICU or be transferred to intervention. Today troponin 0.25 Qualifiers: [place] vs. transplanted heart: [place] heart (6) Cognitive impairment Impression: sister explains he has lost quite a bit of function from his previous aneurysm bleed and repair and also has strokes on CT. no intervention other than to note the impact it has on his above co- morbidities. I will have PT eval today since he is more awake. I have spoken to his sister this am. She is coming today and we can assess his status together so I can establish what his baseline is. (5) CAD (coronary artery disease), [place] coronary artery Qualifiers: [place] vs. transplanted heart: [place] heart
[2017-06-10 07:09] LABS: BAND NEUTROPHILS % (MANUAL) 4 %; EOSINOPHILS # (MANUAL) 0.2 10^3/uL (0-0.7); LYMPHOCYTES # (MANUAL) 0.8 10^3/uL (1.5-3.5); LYMPHOCYTES % (MANUAL) 8 %; MONOCYTES # (MANUAL) 0.5 10^3/uL (0.0-1.0); NEUTROPHILS # (MANUAL) 4.9 10^3/uL (1.5-6.6); NEUTROPHILS % (MANUAL) 72 %
[2017-06-10 07:11] LABS: DIFFERENTIAL COMMENT MANUAL DIFFERENTIAL; PLATELET ESTIMATE, MANUAL DECREASED (<130,000) (NORMAL); PLATELET MORPHOLOGY NORMAL APPEARANCE (NORMAL); RBC MORPHOLOGY (MULTIPLE) NORMAL APPEARANCE (NORMAL)
[2017-06-10] MEDS: BUDESONIDE 0.5 MG/2 ML NEB INH SCH ×2 (07:56→23:08)
[2017-06-10] MEDS: methylPREDNISolone SUCCINATE 125 MG/2 ML VIAL IVP SCH ×3 (10:48→21:00)
[2017-06-10] MEDS: SODIUM CHLORIDE FLUSH 0.9% 10 ML SYRINGE IVP PRN (10:49)
[2017-06-10] MEDS: POLYETHYLENE GLYCOL 3350 17 GM PACKET PO SCH (10:50)
[2017-06-10] MEDS: ISOSORBIDE MONONITRATE ER 30 MG TABLET PO SCH (10:51)
[2017-06-10] MEDS: CLOPIDOGREL 75 MG TABLET PO SCH (10:52)
[2017-06-10] MEDS: ALLOPURINOL 100 MG TABLET PO SCH (10:53)
[2017-06-10] MEDS: CALCITONIN NASAL SPRAY NAS SCH (11:02)
[2017-06-10] MEDS: METOPROLOL SUCCINATE 25 MG TABLET PO SCH (11:10)
[2017-06-10] MEDS: amLODIPine 5 MG TABLET PO SCH (11:10)
[2017-06-10] MEDS: ATORVASTATIN 10 MG TABLET PO SCH (11:10)
[2017-06-10] MEDS: levoFLOXacin 750 MG/150 ML 750 MG/150 ML BAG IV SCH (18:15)
[2017-06-10] MEDS: risperiDONE 1 MG TABLET PO SCH (20:53)
[2017-06-11] MEDS: PIPERACILLIN/TAZOBACTAM 2.25 GM in SODIUM CHLORIDE 0.9% MINIBAG 100 ML IV SCH ×3 (01:47→17:17)
[2017-06-11] MEDS: metroNIDAZOLE 500 MG/100 ML 500 MG/100 ML BAG IV SCH ×3 (05:43→21:18)
[2017-06-11] MEDS: SODIUM CHLORIDE FLUSH 0.9% 10 ML SYRINGE IVP SCH ×3 (05:44→20:21)
[2017-06-11] MEDS: methylPREDNISolone SUCCINATE 125 MG/2 ML VIAL IVP SCH ×3 (05:44→21:17)
[2017-06-11] MEDS: IPRATROPIUM/ALBUTEROL 3 ML NEB INH SCH ×3 (07:15→23:10)
[2017-06-11] MEDS: BUDESONIDE 0.5 MG/2 ML NEB INH SCH ×2 (07:15→23:10)
[2017-06-11] MEDS: ATORVASTATIN 10 MG TABLET PO SCH (08:53)
[2017-06-11] MEDS: amLODIPine 5 MG TABLET PO SCH (08:53)
[2017-06-11] MEDS: ISOSORBIDE MONONITRATE ER 30 MG TABLET PO SCH (08:54)
[2017-06-11] MEDS: METOPROLOL SUCCINATE 25 MG TABLET PO SCH (08:54)
[2017-06-11] MEDS: POLYETHYLENE GLYCOL 3350 17 GM PACKET PO SCH (08:54)
[2017-06-11] MEDS: ALLOPURINOL 100 MG TABLET PO SCH (08:54)
[2017-06-11] MEDS: CLOPIDOGREL 75 MG TABLET PO SCH (08:54)
[2017-06-11] MEDS: CALCITONIN NASAL SPRAY NAS SCH (08:55)
[2017-06-11] MEDS: ALBUTEROL NEB 2.5 MG/3 ML INH PRN (11:41)
--- NOTE | 2017-06-11 15:52 | PROVIDER PROGRESS NOTE ---
Subjective - Prog Note Date Prog Note Date: 06/11/17 Prog Note Time: 15:48 - Subjective Pt reports feeling: Improved (The patient is more lucid today, and is able to carry on a conversation.) Current Medications - Current Medications Current Medications: Tylenol, albuterol, DuoNeb, Zyloprim, Norvasc, Lipitor, Pulmicort,For decal, Plavix, Imdur, Levaquin, Solu-Medrol, Toprol-XL,Flagyl, Mineral oil, morphine, Zofran, Unasyn, MiraLAX, Risperdal,Normal saline Objective - Vital Signs/Intake & Output Reviewed Vital Signs: Yes Vital Signs: Vital Signs x48h Temp Pulse Pulse Resp BP Pulse Ox 06/11/17 15:34 36.9 C 102 H 26 H 154/69 H 96 06/11/17 15:13 97 22 06/11/17 11:45 92 32 H 06/11/17 11:28 37.2 C 92 34 H 177/65 H 95 Intake & Output: Intake & Output 06/08/17 06/09/17 06/10/17 06/11/17 23:59 23:59 23:59 23:59 Intake Total 9489 859 5854.833 1471.5 Output Total 225 560 Balance 2546 196 3996.833 911.5 - Objective General Appearance: positive: No acute distress, Alert Eyes Bilateral: positive: Normal inspection, PERRL, EOMI, No lid inflammation, Conjunctivae nml ENT: positive: ENT inspection nml, Pharynx nml, No signs of dehydration Neck: positive: Nml inspection, Thyroid nml, No JVD, Trachea midline, Thyromegaly Respiratory: positive: Chest non-tender, No respiratory distress, Breath sounds nml. negative: Wheezes, Rales, Rhonchi Cardiovascular: positive: Regular rate & rhythm, No murmur, No gallop Abdomen: positive: Non-tender, No organomegaly, Nml bowel sounds, No distention Back: positive: Nml inspection. negative: CVA tenderness (R), CVA tenderness (L ) Skin: positive: Color nml, No rash, Warm, Dry. negative: Cyanosis Extremities: positive: Non-tender, Full ROM, Nml appearance, No pedal edema Neurologic/Psychiatric: positive: CN's nml (2-12), Motor nml, Sensation nml, Disoriented to time. negative: Facial droop, Slurred/abnml speech, Depressed mood/affect - Lab Results Fish Bones: 06/10/17 05:58 06/10/17 05:58 Assessment/Plan - Problem List (1) Metabolic encephalopathy Impression: The patient's mentation appears to be clearing. He is much more interactive today and able to make his wants and needs known.We will continue with the current care. (2) Postobstructive pneumonia Impression: The patient has a 5 cm mass to his right lung's upper lobe. While this is certainly concerning, it is likely that the cause of the patient's hypoxia and encephalopathy is the pneumonia and the associated lymphangitic carcinomatosis. We will continue antibiotics and PRN nebulizer treatments. (3) Acute on chronic kidney failure Impression: Creatinine is slightly improved and trending back towards his (elevated) baseline. It is 2.6 today. No evidence of fluid overload today. (4) CAD (coronary artery disease), [place] coronary artery Impression: The patient likely had some sort of ischemic event as he had an elevated troponin of 0.45 on 06/09/2017 which trended down to 0.25 on 06/10/2017. The patient's sister is requesting comfort measures only and no cardiac interventions at this time. Qualifiers: [place] vs. transplanted heart: [place] heart (5) Hypercalcemia Impression: Corrected. 9.0 today.
[2017-06-11] MEDS: risperiDONE 1 MG TABLET PO SCH (20:16)
[2017-06-12] MEDS: PIPERACILLIN/TAZOBACTAM 2.25 GM in SODIUM CHLORIDE 0.9% MINIBAG 100 ML IV SCH ×3 (03:17→17:02)
[2017-06-12] MEDS: SODIUM CHLORIDE FLUSH 0.9% 10 ML SYRINGE IVP PRN ×3 (03:18→23:03)
[2017-06-12] MEDS: ALBUTEROL NEB 2.5 MG/3 ML INH PRN (04:51)
[2017-06-12] MEDS: metroNIDAZOLE 500 MG/100 ML 500 MG/100 ML BAG IV SCH ×3 (05:57→21:58)
[2017-06-12] MEDS: methylPREDNISolone SUCCINATE 125 MG/2 ML VIAL IVP SCH ×3 (05:58→21:58)
[2017-06-12] MEDS: SODIUM CHLORIDE FLUSH 0.9% 10 ML SYRINGE IVP SCH ×3 (07:01→21:58)
[2017-06-12] MEDS: IPRATROPIUM/ALBUTEROL 3 ML NEB INH SCH (07:31)
[2017-06-12] MEDS: BUDESONIDE 0.5 MG/2 ML NEB INH SCH ×2 (07:32→17:43)
[2017-06-12] MEDS: CLOPIDOGREL 75 MG TABLET PO SCH (08:20)
[2017-06-12] MEDS: METOPROLOL SUCCINATE 25 MG TABLET PO SCH (08:20)
[2017-06-12] MEDS: POLYETHYLENE GLYCOL 3350 17 GM PACKET PO SCH (08:20)
[2017-06-12] MEDS: ISOSORBIDE MONONITRATE ER 30 MG TABLET PO SCH (08:20)
[2017-06-12] MEDS: ALLOPURINOL 100 MG TABLET PO SCH (08:20)
[2017-06-12] MEDS: amLODIPine 5 MG TABLET PO SCH (08:20)
[2017-06-12] MEDS: ATORVASTATIN 10 MG TABLET PO SCH (08:20)
[2017-06-12] MEDS: CALCITONIN NASAL SPRAY NAS SCH (08:21)
--- NOTE | 2017-06-12 09:06 | PROVIDER PROGRESS NOTE ---
Subjective - Prog Note Date Prog Note Date: 06/12/17 Prog Note Time: 09:13 - Subjective Subjective: he is watching Leave [place] to [place] but can't tell me what's going on on the plot knows he's in the hospital but not which one can't tell me the date denies pain, sob or discomfort but he is clearly wheezing. but he states he feels comfortable Current Medications - Current Medications Current Medications: Active Medications Acetaminophen (Tylenol) 650 mg PO Q4HR PRN PRN Reason: Pain 1 to 4 Last Admin: 06/09/17 16:00 Dose: 650 mg Allopurinol (Zyloprim) 100 mg PO DAILY [facility] Last Admin: 06/12/17 08:20 Dose: 100 mg Amlodipine Besylate (Norvasc) 10 mg PO DAILY [facility] Last Admin: 06/12/17 08:20 Dose: 10 mg Atorvastatin Calcium (Lipitor) 20 mg PO DAILY [facility] Last Admin: 06/12/17 08:20 Dose: 20 mg Budesonide (Pulmicort) 0.5 mg INH RTBID [facility] Last Admin: 06/12/17 07:32 Dose: 0.5 mg Calcitonin Alice (Fortical) 1 sprays DANIELLE DAILY [facility] Last Admin: 06/12/17 08:21 Dose: 1 spray Clopidogrel Bisulfate (Plavix) 75 mg PO DAILY [facility] Last Admin: 06/12/17 08:20 Dose: 75 mg Metronidazole (Flagyl 500 Mg/100 Ml) 500 mg in 100 mls @ 100 mls/hr IV Q8HR [facility] Last Infusion: 06/12/17 07:01 Dose: Infused Piperacillin Sod/Tazobactam (Sod 2.25 gm/ Sodium Chloride) 100 mls @ 200 mls/ hr IV Q8H [facility] Last Infusion: 06/12/17 06:39 Dose: Infused Sodium Chloride (Normal Saline 0.9%) 500 mls @ 10 mls/hr IV .Q48H PRN PRN Reason: Peripheral Line Protocol Last Infusion: 06/11/17 12:30 Dose: 0 mls/hr Acetaminophen (Ofirmev) 100 mls @ 400 mls/hr IV Q6HR PRN PRN Reason: PAIN Last Infusion: 06/10/17 01:18 Dose: Infused Levofloxacin (Levaquin 750 Mg/150 Ml) 750 mg in 150 mls @ 100 mls/hr IV Q48H [facility] Last Infusion: 06/10/17 20:15 Dose: Infused Ipratropium Baker (Atrovent) 0.5 mg INH RTTID [facility] Isosorbide Mononitrate (Imdur) 30 mg PO DAILY [facility] Last Admin: 06/12/17 08:20 Dose: 30 mg Levalbuterol HCl (Xopenex) 1.25 mg INH RTTID [facility] Levalbuterol HCl (Xopenex) 1.25 mg INH Q2H PRN PRN Reason: Shortness of Air/Wheezing Methylprednisolone Sodium Succinate (Solu-Medrol (125mg Vial)) 125 mg IVP TID [facility] Last Admin: 06/12/17 05:58 Dose: 125 mg Metoprolol Succinate (Toprol Xl) 12.5 mg PO DAILY [facility] Last Admin: 06/12/17 08:20 Dose: 12.5 mg Mineral Oil (Cavilon) 1 applic TOP PRN PRN PRN Reason: Skin Care Last Admin: 06/09/17 02:10 Dose: 1 ea Morphine Sulfate (Morphine (Carpuject)) 2 mg IVP Q2HR PRN PRN Reason: Pain 8 to 10 Last Admin: 06/08/17 03:16 Dose: 2 mg Ondansetron HCl (Zofran Inj) 4 mg IVP Q6HR PRN PRN Reason: Nausea / Vomiting Polyethylene Glycol (Miralax) 17 gm PO DAILY [facility] Last Admin: 06/12/17 08:20 Dose: 17 gm Risperidone (Risperdal) 1.5 mg PO QPM [facility] Last Admin: 06/11/17 20:16 Dose: 1.5 mg Sodium Chloride (Normal Saline Flush 0.9%) 10 ml IVP PRN PRN PRN Reason: NEEDED PER PROVIDER ORDERS Last Admin: 06/12/17 03:18 Dose: 10 ml Sodium Chloride (Normal Saline Flush 0.9%) 10 ml IVP Q8HR [facility] Last Admin: 06/12/17 07:01 Dose: 10 ml Allopurinol 100 mg PO DAILY 10/18/16 Atorvastatin Calcium 20 mg PO DAILY 10/18/16 Risperidone [Risperdal] 1.5 mg PO QPM 10/18/16 Albuterol 2.5 mg INH DAILY PRN 05/29/17 Budesonide/Formoterol Fumarate [Symbicort 160-4.5 Mcg Inhaler] 1 puffs INH BID 05/29/17 Calcium Carbonate [Tums (Calcium Carbonate 500mg)] 1,500 mg PO TIDWM 05/29/17 Metoprolol Succinate 12.5 mg PO DAILY 05/29/17 Sevelamer [Renagel] 2,400 mg PO TIDWM 05/29/17 Warfarin Sodium [Coumadin] 3 mg PO SUMOWEFR 05/29/17 Warfarin Sodium [Coumadin] 6 mg PO TUTHSA 05/29/17 amLODIPine [Norvasc] 10 mg PO DAILY 05/29/17 Objective - Vital Signs/Intake & Output Reviewed Vital Signs: Yes Vital Signs: Vital Signs x48h Temp Pulse Pulse Resp BP Pulse Ox 06/12/17 08:04 36.9 C 104 H 20 183/65 H 95 06/12/17 07:31 104 H 26 H 06/12/17 06:14 102 H 18 95 06/12/17 04:53 99 24 Intake & Output: Intake & Output 06/09/17 06/10/17 06/11/17 06/12/17 23:59 23:59 23:59 23:59 Intake Total 990 9609.656 4151.5 560 Output Total 225 560 200 Balance 990 5204.461 4012.5 360 - Objective General Appearance: positive: Alert, Mild distress (and not aware of his breathing), Other (disoriented) Eyes Bilateral: positive: PERRL, EOMI ENT: positive: Pharynx nml Neck: positive: No JVD. negative: Stiff neck, Carotid bruit Respiratory: positive: Chest non-tender, Wheezes, Rales, Rhonchi, Other ( increased resp rate but no use of accessory muscle.) - Lab Results Fish Bones: 06/12/17 09:20 06/12/17 09:20 Assessment/Plan - Problem List (1) Metabolic encephalopathy Impression: Resolved with new baseline than is worse than preadmit. multifactorial causes: hypercalcemia, pneumonia, hypoxia. He did not improve very much in the first 24-48 hours. He is much better and was much able to speak to me on 06/10. His sister feels he has not achieved his baseline when he's at home. Calcium now nml. Pneumonia was not responding to tx. Increased work of breathing the first two mornings but better by 06/10. With the rapidity of the right lung mass growth and mets to liver, I wonder if he has mets to brain. CT of head on admit was negative except for the chronic encephalomalacia and chronic lacunar infarct. I don't think I can get an MRI since he won't be able to be still for 45 minutes. continue to treat pneumonia and hydrate. (2) Postobstructive pneumonia Impression: most likely from a neoplasm according to how the CT of chest looks and the liver hits. I have reviewed the case with his PCP, Dr. Perez on 06/09. She looked at the CXR report from [place] in September and is was a nml CXR.I have reviewed our films with Dr Ivory 06/09 and they may be a small change from last month using the retrospective scope. But really wasn't visible. So may be small cell lung ca bc of the rapid growth. Spiked a fever for the first two days. He was not improving with a stable CXR on recheck 06/09. he is also being treated as aspiration. Blood cultures are negative. Levaquin added and fever came down. Steroids added 06/10. this am he is wheezing again but no fever. Respiratory thinks the albuterol makes him worse. continue the abx. Added levaquin Day #4 Zosyn and Flagyl Day #5. stop the albuterol in the duoneb and the prn change to xopenex prn, and xopenex with atrovent tid fixed dose schedule. (3) Hypercalcemia Impression: received zometa and calcitonin with good results. Calcium nml by 06/09 but no improvement in JOI or his mentation. continue to monitor but no further tx for now. (4) Acute on chronic renal failure Impression: getting slightly worse not better. He has needed dialysis in the past. Sister says won't do it again. on IVF. watch for fluid overload. Creatine was 2.5 then 2.7 and on 06/10 2.6 recheck today. continue to monitor. Qualifiers: Acute renal failure type: unspecified Chronic kidney disease stage: stage 3 (moderate) Qualified Code(s): N17.9 - Acute kidney failure, unspecified; N18.3 - Chronic kidney disease, stage 3 (moderate); N18.3 - Chronic kidney disease, stage 3 (moderate) (5) CAD (coronary artery disease), [place] coronary artery Impression: with hx of diastolic CHF. Had a troponin of 0.11 on admission. Repeat 0.45. Sister is asking us to pursue measures that would make him comfortable. he is not to go to ICU or be transferred to intervention. On 06/10 his troponin 0.25 Qualifiers: [place] vs. transplanted heart: [place] heart (6) Cognitive impairment Impression: sister explains he has lost quite a bit of function from his previous aneurysm bleed and repair and also has strokes on CT. no intervention other than to note the impact it has on his above co- morbidities. This current baseline is worse than his preadmit. PT has seen him: Patient is 72 y/o pleasantly confused man admitted with pneumonia. 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 Patient was very willing and cooperative during the PT session. His RR was high (30bpm) although SO2 remained above 95% on ra. Basic FA were performed only. Bedmobility independent. Transfers Adele/1 with FWW. Gait 5ft with FWW with Adele/ 1. Patient requires extensive verbal cuing and some tactile guidance to assist him through transfers and walkign safely. D/w MD re high RR and thus limited walking tolerance. MD expects RR to go down with clearance of pneumonia. Patient would benefit from ongoing PT to progress his funcioning to independent transfers and independent walking mobility with FWW for distance of 50ft. Patient would benefit from SNF to work on these goals. (5) CAD (coronary artery disease), [place] coronary artery Qualifiers: [place] vs. transplanted heart: [place] heart
[2017-06-12 09:29] LABS: BASOPHILS % (AUTO) 0.4 %; EOSINOPHILS % (AUTO) 0.3 %; HGB - HEMOGLOBIN 10.3 g/dL (14.0-18.0); LYMPHOCYTES % (AUTO) 5.4 %; MEAN CORPUSCULAR HEMOGLOBIN 31.6 pg (27.0-31.0); MEAN CORPUSCULAR HGB CONC 34.2 g/dL (32.0-36.0); MEAN CORPUSCULAR VOLUME 92.2 fL (80.0-94.0); MEAN PLATELET VOLUME 7.6 fL (7.4-11.4); MONOCYTES % (AUTO) 4.4 %; NEUTROPHILS % (AUTO) 89.5 %; PLT - PLATELET COUNT 123 10^3/uL (130-450); RED BLOOD COUNT 3.28 10^6/uL (4.70-6.10); WHITE BLOOD COUNT 8.9 x10^3/uL (4.8-10.8)
[2017-06-12 09:37] LABS: CALCIUM 8.2 mg/dL (8.5-10.3); CREATININE 2.5 mg/dL (0.6-1.2)
[2017-06-12 09:39] LABS: ABNORMAL LYMPHS % (MANUAL) 0 %
[2017-06-12 09:51] LABS: BAND NEUTROPHILS % (MANUAL) 4 %; EOSINOPHILS # (MANUAL) 0.1 10^3/uL (0-0.7); LYMPHOCYTES # (MANUAL) 1.1 10^3/uL (1.5-3.5); LYMPHOCYTES % (MANUAL) 12 %; METAMYELOCYTES % (MANUAL) 1 %; MONOCYTES # (MANUAL) 0.4 10^3/uL (0.0-1.0); NEUTROPHILS # (MANUAL) 7.3 10^3/uL (1.5-6.6); NEUTROPHILS % (MANUAL) 78 %
[2017-06-12 09:53] LABS: DIFFERENTIAL COMMENT MANUAL DIFFERENTIAL
[2017-06-12] MEDS: MORPHINE 2 MG/ML CARPUJECT IVP PRN ×2 (12:45→20:11)
[2017-06-12] MEDS: IPRATROPIUM 0.2 MG/ML NEB INH SCH ×2 (13:37→17:43)
[2017-06-12] MEDS: LEVALBUTEROL 1.25 MG/3 ML NEB INH SCH ×2 (13:37→17:43)
[2017-06-12] MEDS: levoFLOXacin 750 MG/150 ML 750 MG/150 ML BAG IV SCH (18:19)
[2017-06-12] MEDS: risperiDONE 1 MG TABLET PO SCH (20:30)
[2017-06-13] MEDS: PIPERACILLIN/TAZOBACTAM 2.25 GM in SODIUM CHLORIDE 0.9% MINIBAG 100 ML IV SCH ×3 (01:42→17:52)
[2017-06-13] MEDS: SODIUM CHLORIDE FLUSH 0.9% 10 ML SYRINGE IVP PRN ×3 (02:20→18:21)
[2017-06-13 05:15] LABS: HGB - HEMOGLOBIN 9.2 g/dL (14.0-18.0); LYMPHOCYTES # (AUTO) 0.5 10^3/uL (1.5-3.5); MEAN CORPUSCULAR VOLUME 92.3 fL (80.0-94.0); RED CELL DISTRIBUTION WIDTH 13.9 % (12.0-15.0)
[2017-06-13 05:17] LABS: BASOPHILS % (AUTO) 0.2 %; EOSINOPHILS % (AUTO) 0.4 %; LYMPHOCYTES % (AUTO) 5.9 %; MEAN CORPUSCULAR HEMOGLOBIN 30.1 pg (27.0-31.0); MEAN CORPUSCULAR HGB CONC 32.6 g/dL (32.0-36.0); MEAN PLATELET VOLUME 8.4 fL (7.4-11.4); MONOCYTES # (AUTO) 0.8 10^3/uL (0.0-1.0); MONOCYTES % (AUTO) 10.3 %; NEUTROPHILS # (AUTO) 6.6 10^3/uL (1.5-6.6); NEUTROPHILS % (AUTO) 83.2 %; PLT - PLATELET COUNT 124 10^3/uL (130-450); RED BLOOD COUNT 3.06 10^6/uL (4.70-6.10); WHITE BLOOD COUNT 7.9 x10^3/uL (4.8-10.8)
[2017-06-13 05:25] LABS: CREATININE 2.9 mg/dL (0.6-1.2)
[2017-06-13] MEDS: SODIUM CHLORIDE FLUSH 0.9% 10 ML SYRINGE IVP SCH ×3 (05:32→21:37)
[2017-06-13] MEDS: metroNIDAZOLE 500 MG/100 ML 500 MG/100 ML BAG IV SCH ×3 (05:32→21:36)
[2017-06-13] MEDS: methylPREDNISolone SUCCINATE 125 MG/2 ML VIAL IVP SCH ×3 (05:32→21:35)
[2017-06-13 05:40] LABS: PLATELET ESTIMATE, MANUAL DECREASED (<130,000) (NORMAL); PLATELET MORPHOLOGY NORMAL APPEARANCE (NORMAL); RBC MORPHOLOGY (MULTIPLE) NORMAL APPEARANCE (NORMAL)
[2017-06-13] MEDS: LEVALBUTEROL 1.25 MG/3 ML NEB INH SCH ×5 (07:45→18:10)
[2017-06-13] MEDS: IPRATROPIUM 0.2 MG/ML NEB INH SCH ×5 (07:45→20:23)
[2017-06-13] MEDS: BUDESONIDE 0.5 MG/2 ML NEB INH SCH ×3 (07:45→20:23)
[2017-06-13] MEDS: amLODIPine 5 MG TABLET PO SCH (08:30)
[2017-06-13] MEDS: ISOSORBIDE MONONITRATE ER 30 MG TABLET PO SCH (08:30)
[2017-06-13] MEDS: ATORVASTATIN 10 MG TABLET PO SCH (08:30)
[2017-06-13] MEDS: CALCITONIN NASAL SPRAY NAS SCH (08:30)
[2017-06-13] MEDS: ALLOPURINOL 100 MG TABLET PO SCH (08:30)
[2017-06-13] MEDS: CLOPIDOGREL 75 MG TABLET PO SCH (08:30)
[2017-06-13] MEDS: METOPROLOL SUCCINATE 25 MG TABLET PO SCH (08:31)
[2017-06-13] MEDS: POLYETHYLENE GLYCOL 3350 17 GM PACKET PO SCH (08:31)
[2017-06-13] MEDS: MORPHINE 2 MG/ML CARPUJECT IVP PRN ×4 (14:49→22:40)
[2017-06-13] MEDS ORDERED: DEXTROSE 5%-0.45% NACL 1,000 ML IV ONE (16:36)
--- NOTE | 2017-06-13 17:13 | PROVIDER PROGRESS NOTE ---
Subjective - Prog Note Date Prog Note Date: 06/13/17 Prog Note Time: 17:08 - Subjective Pt reports feeling: Improved (Pt more communicative, feels well.) Current Medications - Current Medications Current Medications: Acetaminophen, Zyloprim, Norvasc, Lipitor, Pulmicort, fortical, Plavix,Atrovent , Imdur, Xopenex, Levaquin, Solu-Medrol,Imdur, Xopenex, Levaquin, Solu-Medrol, Toprol-XL, Flagyl,Mineral oil,Atrovent, [place], morphine, Zofran, Zosyn, MiraLAX, Risperdal, normal saline, Objective - Vital Signs/Intake & Output Reviewed Vital Signs: Yes Vital Signs: Vital Signs x48h Temp Pulse Pulse Resp BP Pulse Ox 06/13/17 15:30 36.8 C 98 20 154/79 H 93 06/13/17 13:45 90 20 Intake & Output: Intake & Output 06/10/17 06/11/17 06/12/17 06/13/17 23:59 23:59 23:59 23:59 Intake Total 0783.362 2653.5 1960 1688.5 Output Total 225 560 200 Balance 2317.918 0302.5 1760 1688.5 - Objective General Appearance: positive: No acute distress, Alert Eyes Bilateral: positive: Normal inspection, PERRL, EOMI, No lid inflammation, Conjunctivae nml ENT: positive: ENT inspection nml, Pharynx nml, No signs of dehydration Neck: positive: Nml inspection, Thyroid nml, No JVD, Trachea midline. negative : Thyromegaly Respiratory: positive: Chest non-tender, No respiratory distress, Breath sounds nml. negative: Wheezes, Rales, Rhonchi Cardiovascular: positive: Regular rate & rhythm, No murmur, No gallop Abdomen: positive: Non-tender, No organomegaly, Nml bowel sounds, No distention. negative: Guarding, Rebound Back: positive: Nml inspection. negative: CVA tenderness (R), CVA tenderness (L ) Skin: positive: Color nml, No rash, Warm, Dry. negative: Cyanosis Extremities: positive: Non-tender, Full ROM, Nml appearance, No pedal edema Neurologic/Psychiatric: positive: CN's nml (2-12), Motor nml, Sensation nml, Mood/affect nml. negative: Facial droop - Lab Results Fish Bones: 06/13/17 04:56 06/13/17 04:56 Other Labs: Lab Results x24hrs 06/13/17 06/13/17 Range/Units 04:56 04:56 WBC 7.9 (4.8-10.8) x10^3/uL RBC 3.06 L (4.70-6.10) 10^6/uL Hgb 9.2 L (14.0-18.0) g/dL Hct 28.2 L (42.0-52.0) % MCV 92.3 (80.0-94.0) fL MCH 30.1 (27.0-31.0) pg MCHC 32.6 (32.0-36.0) g/dL RDW 13.9 (12.0-15.0) % Plt Count 124 L (130-450) 10^3/uL MPV 8.4 (7.4-11.4) fL Neut # 6.6 (1.5-6.6) 10^3/uL Lymph # 0.5 L (1.5-3.5) 10^3/uL [place] # 0.8 (0.0-1.0) 10^3/uL Eos # 0.0 (0.0-0.7) 10^3/uL Baso # 0.0 (0.0-0.1) 10^3/uL Absolute Nucleated RBC 0.01 x10^3/uL Nucleated RBC % 0.1 /100WBC Manual Slide Review Indicated Platelet Estimate DECREASED (<130,000) (NORMAL) Platelet Morphology NORMAL APPEARANCE (NORMAL) RBC Morph Micro Appear NORMAL APPEARANCE (NORMAL) Sodium 139 (135-145) mmol/L Potassium 4.2 (3.5-5.0) mmol/L Chloride 106 (101-111) mmol/L Carbon Dioxide 20 L (21-32) mmol/L Anion Gap 13.0 (6-13) BUN 72 H (6-20) mg/dL Creatinine 2.9 H (0.6-1.2) mg/dL Estimated GFR (MDRD) 21 L (>89) Glucose 170 H (70-100) mg/dL Calcium 8.0 L (8.5-10.3) mg/dL Assessment/Plan - Problem List (1) Metabolic encephalopathy Impression: Improving but still not back to baseline. (2) Postobstructive pneumonia Impression: No fevers,WBC count within normal limits. Pt breathing easily on room air. (3) Acute on chronic kidney failure Impression: creatinine 2.9 today, will start fluids. Pt's baseline is around 2.0 (4) CAD (coronary artery disease), [place] coronary artery Impression: Troponins negative, no c/o chest pain. Qualifiers: [place] vs. transplanted heart: [place] heart (5) Hypercalcemia Impression: Resolved. Calcium today 8.0 but is WNL when corrected (low albumin).
[2017-06-13] MEDS ORDERED: SODIUM CHLORIDE FLUSH 0.9% 10 ML SYRINGE ONE (17:46)
[2017-06-13] MEDS: risperiDONE 1 MG TABLET PO SCH (21:36)
[2017-06-14] MEDS: PIPERACILLIN/TAZOBACTAM 2.25 GM in SODIUM CHLORIDE 0.9% MINIBAG 100 ML IV SCH ×3 (01:33→17:56)
[2017-06-14] MEDS: POLYETHYLENE GLYCOL 3350 17 GM PACKET PO SCH (03:05)
[2017-06-14] MEDS: metroNIDAZOLE 500 MG/100 ML 500 MG/100 ML BAG IV SCH ×3 (05:26→21:50)
[2017-06-14] MEDS: methylPREDNISolone SUCCINATE 125 MG/2 ML VIAL IVP SCH ×3 (06:33→21:50)
[2017-06-14] MEDS: SODIUM CHLORIDE FLUSH 0.9% 10 ML SYRINGE IVP SCH ×3 (06:33→21:50)
[2017-06-14] MEDS: IPRATROPIUM 0.2 MG/ML NEB INH SCH ×3 (07:30→19:00)
[2017-06-14] MEDS: LEVALBUTEROL 1.25 MG/3 ML NEB INH SCH ×5 (07:30→21:59)
[2017-06-14] MEDS: BUDESONIDE 0.5 MG/2 ML NEB INH SCH ×2 (07:30→19:00)
[2017-06-14 08:35] LABS: CALCIUM 7.1 mg/dL (8.5-10.3); CREATININE 2.7 mg/dL (0.6-1.2)
[2017-06-14] MEDS: amLODIPine 5 MG TABLET PO SCH (09:29)
[2017-06-14] MEDS: ALLOPURINOL 100 MG TABLET PO SCH (09:29)
[2017-06-14] MEDS: CLOPIDOGREL 75 MG TABLET PO SCH (09:30)
[2017-06-14] MEDS: ATORVASTATIN 10 MG TABLET PO SCH (09:30)
[2017-06-14] MEDS: METOPROLOL SUCCINATE 25 MG TABLET PO SCH (09:31)
[2017-06-14] MEDS: ISOSORBIDE MONONITRATE ER 30 MG TABLET PO SCH (09:31)
[2017-06-14] MEDS: CALCITONIN NASAL SPRAY NAS SCH (09:34)
[2017-06-14] MEDS: SODIUM CHLORIDE FLUSH 0.9% 10 ML SYRINGE IVP PRN ×3 (09:35→17:56)
--- NOTE | 2017-06-14 13:14 | PROVIDER PROGRESS NOTE ---
Subjective - Prog Note Date Prog Note Date: 06/14/17 Prog Note Time: 12:00 - Subjective Pt reports feeling: No change Current Medications - Current Medications Current Medications: Acetaminophen, allopurinol, Elavil amlodipine, atorvastatin, budesonide, calcitonin, Plavix, D5W, Atrovent, isosorbide, Xopenex, levofloxacin, methylprednisolone, metoprolol, metronidazole, mineral oil, morphine,Zofran, Zosyn, polyethylene glycol, Risperdal, sodium chloride Objective - Vital Signs/Intake & Output Reviewed Vital Signs: Yes Vital Signs: Vital Signs x48h Temp Pulse Pulse Resp BP Pulse Ox 06/14/17 09:19 20 94 06/14/17 07:57 37.0 C 76 20 170/62 H 96 06/14/17 07:30 80 24 Intake & Output: Intake & Output 06/11/17 06/12/17 06/13/17 06/14/17 23:59 23:59 23:59 23:59 Intake Total 1821.5 1960 2578.5 2200 Output Total 560 200 225 200 Balance 1261.5 1760 2353.5 1999 - Objective General Appearance: positive: No acute distress, Alert Eyes Bilateral: positive: Normal inspection, PERRL, EOMI, No lid inflammation, Conjunctivae nml, No scleral icterus ENT: positive: ENT inspection nml, Pharynx nml, No signs of dehydration. negative: Dry mucous membranes Neck: positive: Nml inspection, Thyroid nml, No JVD, Trachea midline. negative : Thyromegaly Respiratory: positive: Chest non-tender, No respiratory distress, Breath sounds nml. negative: Wheezes, Rales, Rhonchi Cardiovascular: positive: Regular rate & rhythm, No murmur, No gallop Abdomen: positive: Non-tender, No organomegaly, Nml bowel sounds, No distention. negative: Guarding, Rebound Back: positive: Nml inspection. negative: CVA tenderness (R), CVA tenderness (L ) Skin: positive: Color nml, No rash, Warm, Dry. negative: Cyanosis Extremities: positive: Non-tender, Full ROM, Nml appearance, No pedal edema Neurologic/Psychiatric: positive: Oriented x3, CN's nml (2-12), Motor nml, Sensation nml, Mood/affect nml - Lab Results Fish Bones: 06/13/17 04:56 06/14/17 08:21 Other Labs: Lab Results x24hrs 06/14/17 Range/Units 08:21 Sodium 137 (135-145) mmol/L Potassium 3.8 (3.5-5.0) mmol/L Chloride 103 (101-111) mmol/L Carbon Dioxide 19 L (21-32) mmol/L Anion Gap 15.0 H (6-13) BUN 72 H (6-20) mg/dL Creatinine 2.7 H (0.6-1.2) mg/dL Estimated GFR (MDRD) 23 L (>89) Glucose 184 H (70-100) mg/dL Calcium 7.1 L (8.5-10.3) mg/dL - Diagnostic Imaging Diagnostic Imaging Results: positive: Final report reviewed Diagnostic Imaging Comments: EXAM: CT HEAD EXAM DATE: 06/08/2017 12:00 AM. CLINICAL HISTORY: Hypoxia, fall, on anticoagulation. COMPARISON: Brain CT from 04/19/2017. TECHNIQUE: Multiaxial CT images were obtained from the foramen magnum to the vertex. Reformats: Coronal. IV contrast: None. In accordance with CT protocol optimization, one or more of the following dose reduction techniques were utilized for this exam: automated exposure control, adjustment of mA and/or KV based on patient size, or use of iterative reconstructive technique. FINDINGS: Parenchyma: Extensive bilateral parietal encephalomalacia is stable. Chronic lacunar infarcts are again noted in the bilateral basal ganglia. No intraparenchymal hemorrhage. No evidence of mass, midline shift, or CT findings of acute infarction. Benson-white differentiation is distinct elsewhere in the brain. Extraaxial Spaces: Normal for age. No subdural or epidural collections identified. Ventricles: The ventricles and cortical sulci are moderately enlarged, consistent with age-related tissue loss. Sinuses and orbits: Imaged paranasal sinuses, orbits, and mastoids show no significant abnormality. Bones: No evidence of fracture or calvarial defect. Other: Mild intracranial atherosclerosis is noted. IMPRESSION: 1. No acute intracranial process. 2. Stable extensive bilateral parietal encephalomalacia compared to the brain CT from 04/19/2017. EXAM: CT CHEST EXAM DATE: 06/08/2017 02:00 AM. CLINICAL HISTORY: Right suprahilar mass. COMPARISONS: Chest x-rays same day. TECHNIQUE: Routine helical CT imaging was performed through the chest. IV contrast: None. Reconstructions: Coronal and sagittal. In accordance with CT protocol optimization, one or more of the following dose reduction techniques were utilized for this exam: automated exposure control, adjustment of mA and/or KV based on patient size, or use of iterative reconstructive technique. FINDINGS: Lungs/Pleura: Medial right upper lobe mass which abuts the mediastinum measures approximately 53 x 33 mm on image 20 series 4 and extends approximately 30 mm in craniocaudal dimension on coronal image 38. Distal to the mass in the right upper lobe parenchyma there is interlobular septal nodular thickening, consistent with carcinomatosis. Ground-glass density is likely tumor infiltration as well. Clear left lung. Mediastinum: As above, the medial right upper lobe mass abuts the mediastinum. There is a large right hilar lymph node suspected, not well-evaluated due to lack of IV contrast but grossly measures 32 x 39 mm on image 30. Enlarged pretracheal lymph node on image 18 measures 19 mm in short axis. Severe coronary calcifications. Mild cardiomegaly. No aortic aneurysm. Bones: No aggressive appearing bone lesion seen. Minimal multilevel superior endplate compression deformities appear old. Visualized Abdomen: Numerous small hypodense nodules scattered throughout the liver, highly concerning for metastatic disease. Other: None. IMPRESSION: 1. 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 2. Right hilar and mediastinal probable metastatic adenopathy. 3. Diffuse hepatic nodules, highly concerning for metastatic disease. 4. Severe coronary calcifications and mild cardiomegaly. No overt heart failure currently. Assessment/Plan - Problem List (1) Metabolic encephalopathy Impression: Improved, however patient still not back to his baseline mentation/cognition. Patient is status post pontine CVA which may be contributing to his altered level of consciousness as well. (2) Postobstructive pneumonia Impression: No obvious signs of infection at this time. The patient's white blood cell count is 7.9. He is afebrile, and has not had a productive cough.Continue present care. (3) Acute on chronic kidney failure Impression: Creatinine today is 2.7, Down from 2.9. (4) CAD (coronary artery disease), [place] coronary artery Impression: No current coronary issues, continue present care. Qualifiers: [place] vs. transplanted heart: [place] heart (5) Hypercalcemia Impression: Patient is hypocalcemic today, will add calcium supplements.
[2017-06-14] MEDS: LEVALBUTEROL 1.25 MG/3 ML NEB INH PRN (14:15)
[2017-06-14] MEDS: CALCIUM CARBONATE CHEW 500 MG TABLET PO SCH ×2 (14:46→21:49)
[2017-06-14] MEDS: MORPHINE 2 MG/ML CARPUJECT IVP PRN ×2 (15:54→19:01)
[2017-06-14] MEDS ORDERED: FUROSEMIDE 100 MG/10 ML VIAL IVP SCH (19:00)
[2017-06-14] MEDS ORDERED: FUROSEMIDE 20 MG/2 ML VIAL IVP ONE (19:10)
[2017-06-14] MEDS ORDERED: FUROSEMIDE 40 MG/4 ML VIAL ONE (19:10)
[2017-06-14] MEDS: levoFLOXacin 750 MG/150 ML 750 MG/150 ML BAG IV SCH (19:58)
--- NOTE | 2017-06-14 20:25 | XRAY Preliminary Report ---
Exam: XR CHEST 1 VIEW X-RAY IMPRESSION: Moderate diffuse right lung airspace disease has increased compared to the prior exam. Ne w small right lower lung focal consolidation. There is mild left mid and lower lung airspace disease that has increased. This could represent increased pulmonary edema or pneumonia. [facility] SITE ID: [id number]
--- NOTE | 2017-06-14 20:25 | XRAY Report ---
EXAM: CHEST RADIOGRAPHY EXAM DATE: 06/14/2017 07:01 PM. CLINICAL HISTORY: Respiratory distress. COMPARISON: Chest 06/09/2017. TECHNIQUE: 1 view. FINDINGS: Lungs/Pleura: Moderate diffuse right lung airspace disease has increased compared to the prior exam. New small right lower lung focal consolidation. There is mild left mid and lower lung airspace diseas e that has increased. This could represent increased pulmonary edema or pneumonia. No pleural effusio n or pneumothorax. Mediastinum: Within exam limitations, the cardiomediastinal contour is normal. IMPRESSION: Moderate diffuse right lung airspace disease has increased compared to the prior exam. Ne w small right lower lung focal consolidation. There is mild left mid and lower lung airspace disease that has increased. This could represent increased pulmonary edema or pneumonia. [facility] Referring Provider Line: [phone] SITE ID: [id number]
[2017-06-14] MEDS: risperiDONE 1 MG TABLET PO SCH (21:49)
[2017-06-15] MEDS: PIPERACILLIN/TAZOBACTAM 2.25 GM in SODIUM CHLORIDE 0.9% MINIBAG 100 ML IV SCH ×2 (02:12→10:08)
[2017-06-15] MEDS: MORPHINE 2 MG/ML CARPUJECT IVP PRN (04:48)
[2017-06-15] MEDS: SODIUM CHLORIDE FLUSH 0.9% 10 ML SYRINGE IVP SCH (04:49)
[2017-06-15] MEDS: metroNIDAZOLE 500 MG/100 ML 500 MG/100 ML BAG IV SCH (05:13)
[2017-06-15] MEDS: methylPREDNISolone SUCCINATE 125 MG/2 ML VIAL IVP SCH (05:13)
[2017-06-15 06:10] LABS: CALCIUM 6.9 mg/dL (8.5-10.3); CREATININE 2.9 mg/dL (0.6-1.2)
[2017-06-15] MEDS: LEVALBUTEROL 1.25 MG/3 ML NEB INH PRN (07:43)
[2017-06-15] MEDS: BUDESONIDE 0.5 MG/2 ML NEB INH SCH (07:43)
[2017-06-15] MEDS: IPRATROPIUM 0.2 MG/ML NEB INH SCH (07:43)
[2017-06-15 07:59] VITALS: BP 151/69
[2017-06-15] MEDS: CLOPIDOGREL 75 MG TABLET PO SCH (08:10)
[2017-06-15] MEDS: METOPROLOL SUCCINATE 25 MG TABLET PO SCH (08:10)
[2017-06-15] MEDS: ATORVASTATIN 10 MG TABLET PO SCH (08:10)
[2017-06-15] MEDS: ALLOPURINOL 100 MG TABLET PO SCH (08:11)
[2017-06-15] MEDS: amLODIPine 5 MG TABLET PO SCH (08:11)
[2017-06-15] MEDS: CALCIUM CARBONATE CHEW 500 MG TABLET PO SCH (08:13)
[2017-06-15] MEDS: CALCITONIN NASAL SPRAY NAS SCH (08:16)
[2017-06-15] MEDS: POLYETHYLENE GLYCOL 3350 17 GM PACKET PO SCH (08:27)
[2017-06-15] MEDS: ISOSORBIDE MONONITRATE ER 30 MG TABLET PO SCH (08:27)
--- NOTE | 2017-06-15 08:54 | Discharge Plan ---
Discharge Plan for SNF / JAIL - DC Plan and Transition Orders Disposition: 03 SNF DC/Xfer Condition: Stable SNF Transition Orders: Admit to: [facility] Care under the care of Lupis Mcdaniel Discharge Diagnosis: [place] CVA Medicare Certification: I certify that Post Hospital retirement care is medically necessary on a continuing basis for any of the conditions for which she/he is receiving care during hospitalization. Notify PCP of admission and forward orders to primary provider for signature. Weight on admission and weekly. Call PCP immediately if weight increases by 10 pounds or if patient develops dyspnea, chest pain/tightness or edema. House Bowel Program: yes If no BM after 2 days, nurse may give M.O.M. 30ml PO PRN and /or ducolax Supp 1 [place] and /or GLORIA 250mg P.O., and/or senna 1-2 tabs PO. On day 3 nurse may give repeat above order until residents constipation is resolved. Immunizations: Annual Influenza Vaccine: yes. (between Dec 30 and July 29.) Unless allergy or already given Two-Step PPD: yes per [facility] [phone] or appropriate documentation of approved exceptions Treatments & Other Orders: PT/OT eval and treat Oxygen Orders: 2-6l/m PRN dyspnea Medications: PLEASE REFER TO THE DISCHARGE MEDICATION LIST. Allergies and Adverse Reactions: Allergies Allergy/AdvReac Type Severity Reaction Status Date / Time No Known Drug Allergies Allergy Verified 06/07/17 23:23
--- NOTE | 2017-06-15 09:09 | DISCHARGE SUMMARY ---
Discharge Summary Admit Date: 06/08/17 Discharge Date: 06/15/17 Discharging Provider: Lupe Arnold DO Primary Care Provider: Lupis Dennis Code Status: Do Not Attempt Resuscitation Condition at Discharge: Stable Discharge Disposition: 03 SNF DC/Xfer Discharge Facility Name: [facility] - DIAGNOSES Admission Diagnoses: 1. Encephalopathy 2. Postobstructive pneumonia 3. Electrolyte abnormalities 4. Chronic anemia 5. Protein malnutrition Discharge Diagnoses with Status of Each Condition: 1. Encephalopathy -The patient's mentation has improved but he is still not back to his baseline and may not ever get there. He has suffered a pontine stroke. 2. Postobstructive pneumonia- Resolved. No white blood cell count, no fevers. 3. Electrolyte abnormalities-Corrected. 4. Chronic anemia- Hemoglobin has been ranging between 9 and 10, patient appears to be hemodynamically stable. 5. Protein malnutrition-The patient has been eating better while here in the hospital and will likely do well when he is in a facility setting. - HPI History of Present Illness: From Dr. Peña's H&P: The patient is a 72-year-old, chronically ill, white male who is brought into [facility] ER by ambulance after he suffered a fall at his home. Reportedly, he fell in the bathroom and could not get up. The patient lives with his sister who called the ambulance. Per EMS report the patient appeared pale, diaphoretic , had low oxygen saturation in the mid 80s, and had an increased respiratory rate above 30. His blood pressure was borderline low around 90-100 systolic. Upon presentation to the ER, the patient's vital signs actually were stable. He did have slightly elevated temperature 37.6C. His heart rate was between 80 -90. Blood pressure was 130/60, respiratory rate was 18, and his oxygen saturation was 95% on room air. Reviewing the electronic medical record, the patient was seen frequently for falls in the past and was admitted twice recently with different issues. In particular, he was admitted in March 2017 with non-ST elevated myocardial infarction. At that time he also had a fall and was observed with altered mental status. Is also felt to have congestive heart failure in the background and he received conservative treatment for cardiac ischemia. Notably the patient does have advanced renal failure and he was not a candidate for invasive evaluation. Subsequently the patient was readmitted at the end of May, for healthcare associated pneumonia. The patient usually has impaired renal function with creatinine baseline around 2. Regarding his x-rays, during the past few times he was seen he had mild infiltrates on his chest x-rays. Mostly the radiologist described as congestive heart failure-like pattern. Either way the patient did complete treatment for pneumonia. Initially in the hospital he was treated for healthcare associated pneumonia and then he was discharged on Levaquin to complete the treatment. It is pertinent that the patient takes Coumadin. He does have a history of cerebrovascular accident, plus he has some history of some type of arrhythmia. No further details were available in the medical record. Regarding the ER workup, the patient was found with numerous abnormalities including hypercalcemia of 12.3. Creatinine was 2.5 INR was 1.8 and platelet count was 109. CT scan of the brain was checked as the patient fell and possibly hit his head and this showed stable encephalomalacia with no acute abnormality. EKG showed right bundle branch block which was unchanged compared to previous EKGs and troponin was negative. Chest x-ray showed a large masslike infiltrate in the right suprahilar region. - HOSPITAL COURSE Hospital Course: Patient was admitted to the hospital and the following day a CT scan of the chest found a large neoplasm in his right upper lobe medial area. There was some postobstructive pneumonia noted which was treated with IV antibiotics. The patient's encephalopathy started to clear however the patient has never returned back to baseline and his hypercalcemia was successfully treated with a combination of Zometa and calcitonin. The patient's renal function continues to be poor with creatinine of 2-1/2-3, and although he had an initial troponin of 0.11 on admission he failed to show any significant elevation or signs of any type of acute cardiac event. Over the next few days he was stabilized and placement was found for him at [facility] where he was discharged today. - ALLERGIES Allergies/Adverse Reactions: Allergies Allergy/AdvReac Type Severity Reaction Status Date / Time No Known Drug Allergies Allergy Verified 06/07/17 23:23 - MEDICATIONS Home Medications: Ambulatory Orders Medication Instructions Recorded Confirmed Clopidogrel [Plavix] 75 mg PO DAILY #30 tablet 04/25/17 06/08/17 Isosorbide Mononitrate ER [Imdur] 30 mg PO DAILY #30 tablet 04/25/17 06/08/17 Warfarin Sodium [Coumadin] 6 mg PO TUTHSA 05/29/17 06/08/17 Acetaminophen [Tylenol] 650 mg PO Q4HR PRN #30 tablet 06/15/17 Albuterol 2.5 mg INH DAILY PRN #30 06/15/17 05/29/17 Allopurinol 100 mg PO DAILY #30 06/15/17 05/29/17 Atorvastatin Calcium 20 mg PO DAILY #0 06/15/17 05/29/17 Budesonide/Formoterol Fumarate 1 puffs INH BID #30 06/15/17 05/29/17 [Symbicort 160-4.5 Mcg Inhaler] Calcium Carbonate [Tums (Calcium 1,500 mg PO TIDWM #60 06/15/17 05/29/17 Carbonate 500mg)] Levofloxacin [Levaquin] 750 mg PO DAILY 7 Days #7 tablet 06/15/17 06/08/17 Metoprolol Succinate 12.5 mg PO DAILY #30 06/15/17 06/08/17 Risperidone [Risperdal] 1.5 mg PO QPM #30 06/15/17 05/29/17 Sevelamer [Renagel] 2,400 mg PO TIDWM #30 06/15/17 05/29/17 Warfarin Sodium [Coumadin] 3 mg PO SUMOWEFR #30 06/15/17 06/08/17 amLODIPine [Norvasc] 10 mg PO DAILY #30 06/15/17 05/29/17 - PHYSICAL EXAM AT DISCHARGE General Appearance: positive: No acute distress, Alert Eyes Bilateral: positive: Normal inspection, PERRL, EOMI, No lid inflammation, Conjunctivae nml, No scleral icterus ENT: positive: ENT inspection nml, Pharynx nml, No signs of dehydration Neck: positive: Nml inspection, Thyroid nml, No JVD, Trachea midline. negative : Thyromegaly Respiratory: positive: Chest non-tender, No respiratory distress, Breath sounds nml. negative: Wheezes, Rales, Rhonchi Cardiovascular: positive: Regular rate & rhythm, No murmur, No gallop Peripheral Pulses: positive: 1+ Abdomen: positive: Non-tender, No organomegaly, Nml bowel sounds, No distention. negative: Guarding, Rebound Back: positive: Nml inspection. negative: CVA tenderness (R), CVA tenderness (L ) Skin: positive: Color nml, No rash, Warm, Dry. negative: Cyanosis Extremities: positive: Non-tender, Full ROM, Nml appearance Neurologic/Psychiatric: positive: CN's nml (2-12), Motor nml, Sensation nml, Mood/affect nml, Disoriented to place, Disoriented to time - LABS Result Diagrams: 06/13/17 04:56 06/15/17 05:22 - DIAGNOSTIC IMAGING Diagnostic Imaging Results: Final report reviewed Diagnostic Imaging Results Comments: EXAM: CT CHEST EXAM DATE: 06/08/2017 02:00 AM. CLINICAL HISTORY: Right suprahilar mass. COMPARISONS: Chest x-rays same day. TECHNIQUE: Routine helical CT imaging was performed through the chest. IV contrast: None. Reconstructions: Coronal and sagittal. In accordance with CT protocol optimization, one or more of the following dose reduction techniques were utilized for this exam: automated exposure control, adjustment of mA and/or KV based on patient size, or use of iterative reconstructive technique. FINDINGS: Lungs/Pleura: Medial right upper lobe mass which abuts the mediastinum measures approximately 53 x 33 mm on image 20 series 4 and extends approximately 30 mm in craniocaudal dimension on coronal image 38. Distal to the mass in the right upper lobe parenchyma there is interlobular septal nodular thickening, consistent with carcinomatosis. Ground-glass density is likely tumor infiltration as well. Clear left lung. Mediastinum: As above, the medial right upper lobe mass abuts the mediastinum. There is a large right hilar lymph node suspected, not well-evaluated due to lack of IV contrast but grossly measures 32 x 39 mm on image 30. Enlarged pretracheal lymph node on image 18 measures 19 mm in short axis. Severe coronary calcifications. Mild cardiomegaly. No aortic aneurysm. Bones: No aggressive appearing bone lesion seen. Minimal multilevel superior endplate compression deformities appear old. Visualized Abdomen: Numerous small hypodense nodules scattered throughout the liver, highly concerning for metastatic disease. Other: None. IMPRESSION: 1. 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 2. Right hilar and mediastinal probable metastatic adenopathy. 3. Diffuse hepatic nodules, highly concerning for metastatic disease. 4. Severe coronary calcifications and mild cardiomegaly. No overt heart failure currently. EXAM: CHEST RADIOGRAPHY EXAM DATE: 06/14/2017 07:01 PM. CLINICAL HISTORY: Respiratory distress. COMPARISON: Chest 06/09/2017. TECHNIQUE: 1 view. FINDINGS: Lungs/Pleura: Moderate diffuse right lung airspace disease has increased compared to the prior exam. New small right lower lung focal consolidation. There is mild left mid and lower lung airspace disease that has increased. This could represent increased pulmonary edema or pneumonia. No pleural effusion or pneumothorax. Mediastinum: Within exam limitations, the cardiomediastinal contour is normal. IMPRESSION: Moderate diffuse right lung airspace disease has increased compared to the prior exam. New small right lower lung focal consolidation. There is mild left mid and lower lung airspace disease that has increased. This could represent increased pulmonary edema or pneumonia. - FOLLOW UP Follow Up: With Suzanna Frey or Lupis Mcdaniel this week. - TIME SPENT Time Spent in Discharge (Minutes): 45
== END 2017-06-15 10:00 | DRG 177 ==
LOC: EDUNIT# → ED 23:17 → MS2 06-08 01:13
PROVIDERS: ADMIT Internal Medicine; ATTEND Hospitalist
DX: G31.84 Mild cognitive impairment of uncertain or unknown etiology (principal); J69.0 Pneumonitis due to inhalation of food and vomit; G93.41 Metabolic encephalopathy; N28.9 Disorder of kidney and ureter, unspecified; R94.31 Abnormal electrocardiogram [ECG] [EKG]; I13.0 Hypertensive heart and chronic kidney disease with heart failure and stage 1 through stage 4 chronic kidney disease, or unspecified chronic kidney disease; E46 Unspecified protein-calorie malnutrition; N17.9 Acute kidney failure, unspecified; C80.0 Disseminated malignant neoplasm, unspecified; F03.90 Unspecified dementia, unspecified severity, without behavioral disturbance, psychotic disturbance, mood disturbance, and anxiety; E83.52 Hypercalcemia; I50.9 Heart failure, unspecified; Z98.61 Coronary angioplasty status; I25.10 Atherosclerotic heart disease of native coronary artery without angina pectoris; I49.9 Cardiac arrhythmia, unspecified; S80.01XA Contusion of right knee, initial encounter; J44.9 Chronic obstructive pulmonary disease, unspecified; Z86.73 Personal history of transient ischemic attack (TIA), and cerebral infarction without residual deficits; Z66 Do not resuscitate; D64.9 Anemia, unspecified; D49.1 Neoplasm of unspecified behavior of respiratory system; W18.30XA Fall on same level, unspecified, initial encounter; Z91.81 History of falling; Y92.012 Bathroom of single-family (private) house as the place of occurrence of the external cause; I25.2 Old myocardial infarction; E78.5 Hyperlipidemia, unspecified; M19.90 Unspecified osteoarthritis, unspecified site; M10.9 Gout, unspecified; R09.02 Hypoxemia; E88.09 Other disorders of plasma-protein metabolism, not elsewhere classified; Z68.37 Body mass index [BMI] 37.0-37.9, adult; E86.0 Dehydration; Z79.01 Long term (current) use of anticoagulants; N18.3 Chronic kidney disease, stage 3 (moderate)
CPT/HCPCS: 36415; 70450; 71045; 71250; 80048; 80053; 82310; 82550; 82803; 83690; 83735; 83880; 84100; 84484; 85025; 85610; 85730; 87040; 87275; 87276; 93005; 94640; 94664; 99284; 99285